=== PATIENT | male | born 1955 | race Caucasian/White ===

== ENCOUNTER → 2019-11-16 09:33 | Outpatient (BNVA) | payer MEDICARE, MEDICAID, SELFPAY | PROVIDERS: PCP Internal Medicine; Visit Provider Internal Medicine Pulmonary Disease | DX: J44.9 Chronic obstructive pulmonary disease, unspecified (principal); R91.8 Other nonspecific abnormal finding of lung field; Z87.891 Personal history of nicotine dependence | CPT/HCPCS: 99214 ==

== ENCOUNTER → 2019-11-30 12:45 | Outpatient (BNVA) | payer MEDICARE, MEDICAID, SELFPAY | PROVIDERS: PCP Internal Medicine; Visit Provider Internal Medicine Cardiovascular Disease | DX: R06.00 Dyspnea, unspecified (principal); R07.89 Other chest pain; I10 Essential (primary) hypertension; Z87.891 Personal history of nicotine dependence; Z79.82 Long term (current) use of aspirin; Z79.899 Other long term (current) drug therapy | CPT/HCPCS: 99214 ==

== ENCOUNTER → 2019-12-28 09:11 | Outpatient (BNVA) | payer MEDICARE, MEDICAID, SELFPAY | PROVIDERS: PCP Internal Medicine; Visit Provider Internal Medicine Pulmonary Disease | DX: J44.9 Chronic obstructive pulmonary disease, unspecified (principal); R91.8 Other nonspecific abnormal finding of lung field; Z79.899 Other long term (current) drug therapy | CPT/HCPCS: 99212 ==

== ENCOUNTER 2020-01-03 08:11 | Day surgery (SDC) | payer MEDICARE, MEDICAID, SELFPAY ==
[2019-12-28 11:46] VITALS: BMI 31.6
--- NOTE | 2020-01-02 10:09 | P.CONAN_ITS ---
Documented by User: Gwenher Shellney 01/02/20 10:34 HPI - Anesthesia Eval Consult details Narrative: 64yo M for Upper Endoscopy and Colonoscopy Seen 12/28/19 by Pulm for CESPEDES (ongoing) and Cough PMFSH Past Medical History Medical History Back pain Cook esophagus CESPEDES (dyspnea on exertion) Elevated cholesterol GERD (gastroesophageal reflux disease) Hypertension Family History Family History Father CVD (cardiovascular disease) Diabetes Myocardial infarct Mother Breast cancer Surgical History Surgical History History of esophagogastroduodenoscopy (EGD) Hx of cardiac catheterization Hx of colonoscopy Social History Social History Are you a primary care services manager to a significant other at home: No Do you presently have visiting nurse or other home services: No Smoking Status: Former smoker Tobacco Type: Cigarette Years Smoked: 30-35 years Smoking Quit Date: 5 yrs ago Use of substances other than those prescribed or required for medical reasons: Yes Substance Use Type Other:: CBD oil- 1/2 tsp daily Substance Use Frequency: Daily Have you been hit, kicked, punched, or otherwise hurt by someone within the past year? If so, by whom?: No Advance Directives: No Advance Directives Information Provided: No Advance Directives on File: No Recently lost weight without trying: No Meds Allergies Allergy/AdvReac Type Severity Reaction Status Date / Time baclofen AdvReac Unknown chest pain Verified 12/28/19 11:42 meperidine [From Demerol] AdvReac Nausea Verified 12/28/19 11:42 simvastatin [From Zocor] AdvReac Muscle Pain Verified 12/28/19 11:42 Home Medications Medication Instructions Recorded Confirmed Type albuterol sulfate 90 mcg/actuation 2 puff INHALATION Q4-6H PRN 11/16/19 12/28/19 History aerosol inhaler aspirin 81 mg tablet,delayed 81 mg PO DAILY 11/16/19 12/28/19 History release carvedilol 3.125 mg tablet 3.125 mg PO BID 11/16/19 12/28/19 History enalapril maleate 20 mg tablet 20 mg PO DAILY 11/16/19 12/28/19 History levothyroxine 75 mcg tablet 75 mcg PO DAILY 11/16/19 12/28/19 History Exam Exam Date and Time: January 02, 2020 1009 Height,Weight and Vital Signs: Height 5 ft 7 in Weight 91.626 kg Pertinent Lab Results Pertinent Lab Results: Laboratory Tests 07/15/19 07/26/19 14:48 09:37 WBC 6.4 Hgb 14.3 Hct 43.6 Plt Count 212 Sodium 142 Potassium 5.1 Chloride 105 BUN 15 Creatinine 1.69 H Narrative Narrative: EKG 05/2019: SR with marked SA @ 82 ECHO 2020: Gr 1 DD, valves WNL Stress/MIBI 05/2019: No definitive evidence of ischemia or infarct Assessment and Plan Assessment Anesthesia Assessment: Chart Reviewed Documented by User: Magdi Rodriguez MD 01/03/20 09:25 PMFSH Past Medical History Medical History Back pain Cook esophagus CESPEDES (dyspnea on exertion) Elevated cholesterol GERD (gastroesophageal reflux disease) Hypertension Family History Family History Father CVD (cardiovascular disease) Diabetes Myocardial infarct Mother Breast cancer Surgical History Surgical History History of esophagogastroduodenoscopy (EGD) Hx of cardiac catheterization Hx of colonoscopy Social History Social History Are you a primary care services manager to a significant other at home: No Do you presently have visiting nurse or other home services: No Smoking Status: Former smoker Tobacco Type: Cigarette Years Smoked: 30-35 years Smoking Quit Date: 5 yrs ago Use of substances other than those prescribed or required for medical reasons: Yes Substance Use Type Other:: CBD oil- 1/2 tsp daily Substance Use Frequency: Daily Have you been hit, kicked, punched, or otherwise hurt by someone within the past year? If so, by whom?: No Advance Directives: No Advance Directives Information Provided: No Advance Directives on File: No Recently lost weight without trying: No Meds Allergies Allergy/AdvReac Type Severity Reaction Status Date / Time baclofen AdvReac Unknown chest pain Verified 12/28/19 11:42 meperidine [From Demerol] AdvReac Nausea Verified 12/28/19 11:42 simvastatin [From Zocor] AdvReac Muscle Pain Verified 12/28/19 11:42 Home Medications Medication Instructions Recorded Confirmed Type albuterol sulfate 90 mcg/actuation 2 puff INHALATION Q4-6H PRN 11/16/19 12/28/19 History aerosol inhaler aspirin 81 mg tablet,delayed 81 mg PO DAILY 11/16/19 12/28/19 History release carvedilol 3.125 mg tablet 3.125 mg PO BID 11/16/19 12/28/19 History enalapril maleate 20 mg tablet 20 mg PO DAILY 11/16/19 12/28/19 History levothyroxine 75 mcg tablet 75 mcg PO DAILY 11/16/19 12/28/19 History Exam Airway Mallampati Class: II TM Dist: >3cm Neck ROM: Full Denture: Upper and Lower Loose/Missing/Broken Teeth: No Heart: rrr Lungs: nl Other: ao Assessment and Plan Assessment Anesthesia Assessment: Anesthesia Plan Discussed and Chart Reviewed Final Anesthetic Review NPO: Yes ASA Class: III Final Preanesthetic Review: No Changes in Pt Med Stat, Meds/Allgs Chart Reviewed, Consent Obtained/Reviewed and Anes Risks/Benef Reviewed Patient Risk: Intermediate Procedure Risk: Low Anesthetic Plan Anesthetic Plan: MAC: Disposition: Standard PACU
[2020-01-03 08:22] VITALS: BP 173/90; PULSE 61; RESP 16; TEMP 36.2; O2SAT 98
[2020-01-03] MEDS: Lactated Ringers 1,000 ML 100 ML IVCONT (08:34)
--- NOTE | 2020-01-03 09:25 | MHC.SHP ---
Pre-Procedural Eval Section A The patient is an INPATIENT: No Changes since office visit: No Cold of Flu in the past 2 weeks, No New Medical Problems, No Changes in Medication and No Patient answered all questions The History & Physical has been completed within 30 days and I have reviewed it.: Yes Section B Chief Complaint: barretts,screening Allergies: Allergies Allergy/AdvReac Type Severity Reaction Status Date / Time baclofen AdvReac Unknown chest pain Verified 12/28/19 11:42 meperidine [From Demerol] AdvReac Nausea Verified 12/28/19 11:42 simvastatin [From Zocor] AdvReac Muscle Pain Verified 12/28/19 11:42 Plan Patient has been examined and remains a candidate for the planned procedure
[2020-01-03 10:06] VITALS: BP 103/64; PULSE 78; RESP 12; TEMP 36.6; O2SAT 96
--- NOTE | 2020-01-03 10:09 | PM.OP ---
Brief Operative Note Date of Service: 01/03/20 Pre-op diagnosis: barretts, screening Post-op diagnosis: same (colon polyp) Procedure: egd, colonoscopy Surgeon: Jae Puentes Anesthesia: MAC Estimated blood loss (mL): 5 Pathology: other (esophagus 37, 38 cm, polyp 65cm) Condition: stable Disposition: PACU
[2020-01-03 10:21] VITALS: BP 133/69; PULSE 79; RESP 14; TEMP 36.6; O2SAT 96
--- NOTE | 2020-01-03 10:32 | OP_ITS ---
SURGEON: Jae Puentes MD INDICATIONS: 1. Cook's esophagus. 2. Colon cancer screening and prior history of adenomatous colon polyps. PREOPERATIVE DIAGNOSIS: POSTOPERATIVE DIAGNOSIS: PROCEDURE PERFORMED: 1. Upper endoscopy with biopsy. 2. Colonoscopy to the terminal ileum with biopsy. ESTIMATED BLOOD LOSS: COMPLICATIONS: ANESTHESIA: ASSISTANTS: SPECIMENS: MEDICATIONS: Monitored anesthesia care. DESCRIPTION OF PROCEDURE: History and physical performed. The risks and benefits of the procedure were explained to the patient. Informed consent was obtained. The patient was placed in the left lateral decubitus position. The Olympus video gastroscope was introduced into the esophagus, stomach, and duodenum. Examination was performed. The scope was removed. He was repositioned for colonoscopy. Digital rectal exam was performed and was found to be normal. The Olympus pediatric video colonoscope was introduced into the rectum and advanced to the cecum without difficulty. The cecum was identified by transillumination, palpation, and identification of the ileocecal valve. Examination was performed. The scope was removed. He tolerated both procedures well and was taken to recovery area in stable condition. FINDINGS: UPPER ENDOSCOPY: 1. Esophagus: The esophagus showed a 1 cm area of Cook's esophagus with no raised lesions or ulcerated areas. There was no esophagitis. Biopsies were obtained in all 4 quadrants at 37 and 38 cm. 2. Stomach: The stomach was normal. 3. Duodenum: The bulb and second portion were normal. COLONOSCOPY: The terminal ileum was normal. The visualized colonic mucosa was within normal limits. There was a small polyp, which was identified, removed with biopsy forceps at 65 cm. No other polyps were identified. Retroflexed examination showed internal hemorrhoids. The quality of the prep was good. IMPRESSION: 1. Cook's esophagus. 2. Colon polyp. RECOMMENDATIONS: 1. Follow up the biopsy results. 2. Consider repeat colonoscopy in 5 years. MD MINI Torres/[place] / [id number]
== END 2020-01-03 10:56 | disposition home or self-care (01) ==
PROVIDERS: PCP Internal Medicine; Visit Provider Internal Medicine Gastroenterology
PROC: (CPT 43239; principal; 2020-01-03 09:40)
DX: Z12.11 Encounter for screening for malignant neoplasm of colon (principal); D12.6 Benign neoplasm of colon, unspecified; K22.70 Barrett's esophagus without dysplasia; I10 Essential (primary) hypertension; Z79.82 Long term (current) use of aspirin; Z88.8 Allergy status to other drugs, medicaments and biological substances; Z86.010 Personal history of colon polyps
CPT/HCPCS: 43239; 45380; 88305

== ENCOUNTER → 2020-02-22 12:39 | Outpatient (BNVA) | payer MEDICARE, MEDICAID, SELFPAY | PROVIDERS: PCP Internal Medicine; Visit Provider Internal Medicine Cardiovascular Disease | DX: R06.00 Dyspnea, unspecified (principal); I10 Essential (primary) hypertension | CPT/HCPCS: 99212 ==

== ENCOUNTER 2020-02-27 06:35 | Outpatient (REF) | payer MEDICARE, MEDICAID, SELFPAY ==
[2020-02-27 11:35] LABS: Cholesterol 231 mg/dL; HDL Cholesterol 32 mg/dL; LDL Cholesterol Calculated 135 mg/dl; Triglycerides 322 mg/dL
[2020-02-27 11:58] LABS: Thyroid Stimulating Hormone 3.01 uIU/mL (0.32-4.0)
== END 2020-02-27 06:36 | disposition home or self-care (01) ==
LOC: HO.HMGCLDS 06:35
PROVIDERS: PCP Internal Medicine; Visit Provider Internal Medicine
DX: E03.9 Hypothyroidism, unspecified (principal)
CPT/HCPCS: 36415; 80061; 84443

== ENCOUNTER → 2020-04-26 09:42 | Outpatient (BNVA) | payer MEDICARE, MEDICAID, SELFPAY | PROVIDERS: PCP Internal Medicine; Visit Provider Internal Medicine Pulmonary Disease | DX: J44.9 Chronic obstructive pulmonary disease, unspecified (principal); Z91.09 Other allergy status, other than to drugs and biological substances; Z87.891 Personal history of nicotine dependence | CPT/HCPCS: 99212 ==

== ENCOUNTER → 2020-05-18 13:59 | Outpatient (BNVA) | payer MEDICARE, MEDICAID, SELFPAY | PROVIDERS: PCP Internal Medicine; Visit Provider Internal Medicine Pulmonary Disease | DX: Z13.89 Encounter for screening for other disorder (principal) | CPT/HCPCS: Q3014 ==

== ENCOUNTER 2020-08-10 06:43 | Outpatient (REF) | payer MEDICARE, MEDICAID, SELFPAY ==
[2020-08-10 12:11] LABS: Prostate Specific Antigen 0.71 ng/mL (<0.05-4.0)
[2020-08-10 12:23] LABS: Alanine Aminotransferase 36 U/L (0-40); Albumin Level 4.6 g/dL (3.5-5.0); Alkaline Phosphatase 46 U/L (39-117); Anion Gap 15 (12-20); Aspartate Amino Transferase 24 U/L (5-37); Bilirubin Total 0.5 mg/dL (0.0-1.0); Blood Urea Nitrogen 20 mg/dL (9-16); Calcium 9.4 mg/dL (8.4-10.2); Carbon Dioxide 25 mmol/L (22-29); Chloride 103 mmol/L (96-108); Estimated Glomerular Filt Rate 43; Glucose Fasting 106 mg/dL (60-99); Potassium 4.7 mmol/L (3.3-5.1); Sodium 138 mmol/L (135-145); Thyroid Stimulating Hormone 1.39 uIU/mL (0.32-4.0); Total Protein 7.4 g/dL (6.5-8.0)
== END 2020-08-10 06:44 | disposition home or self-care (01) ==
LOC: HO.HMGCLDS 06:43
PROVIDERS: Nurse Practitioner Family; PCP Internal Medicine; Visit Provider Internal Medicine
DX: Z12.5 Encounter for screening for malignant neoplasm of prostate (principal); Z13.1 Encounter for screening for diabetes mellitus; E03.9 Hypothyroidism, unspecified
CPT/HCPCS: 36415; 80053; 84153; 84443

== ENCOUNTER 2020-08-14 13:13 | Outpatient (REF) | payer MEDICARE, MEDICAID, SELFPAY ==
--- NOTE | ~2020-08-14 | CT_ITS ---
EXAMINATION: CT CHEST WITHOUT CONTRAST CLINICAL INFORMATION: Abnormal finding of lung field. COMPARISON: CT chest scan 08/10/2019 TECHNIQUE: Multidetector volumetric CT imaging of the chest was done. Axial MIP volume rendering provided. Sagittal and coronal reformatted images were obtained. This CT examination was performed using dose optimization techniques as appropriate, variously including the following: *Automated exposure control *Adjustment of mA and/or kV according to patient size (this includes techniques or standardized protocols for targeted exams where dose is matched to indication/reason for exam; i.e. extremities or head) *Use of iterative reconstruction technique DLP: 366 mGy-cm FINDINGS: LUNGS: Minimal apical pleural thickening/scarring, unchanged. 2 mm calcified granuloma right lower lobe, unchanged. 1 mm calcification in the left lower lobe compatible with granuloma, unchanged. 2 mm nodular opacity in the posterior left lower lobe on image 339/[id number] series 8, unchanged. Lungs otherwise clear. Airways clear without endobronchial nodule reported previously. MEDIASTINUM: Coronary artery and aortic calcifications, unchanged. No pericardial effusion. No adenopathy. PLEURA: There is no pleural effusion. No pleural mass or thickening. AXILLA: No lymphadenopathy. UPPER ABDOMEN: Unremarkable. OSSEOUS STRUCTURES: Mild multilevel spondylosis of the dorsal spine, unchanged. CT/CT chest wo con IMPRESSION: No suspicious abnormality. Previously reported endobronchial filling defect no longer visualized. Stable calcified granuloma, unchanged. Stable 2 mm nodule in the left lower lobe, unchanged dating back to February 2017. This is compatible with a benign nodule. No further imaging followup required.
== END 2020-08-14 13:14 | disposition home or self-care (01) ==
LOC: HO.CT 13:13
PROVIDERS: Visit Provider Internal Medicine Pulmonary Disease
DX: R91.8 Other nonspecific abnormal finding of lung field (principal)
CPT/HCPCS: 71250

== ENCOUNTER → 2020-09-05 14:16 | Outpatient (BNVA) | payer MEDICARE, MEDICAID, SELFPAY | PROVIDERS: PCP Internal Medicine; Referring Provider Internal Medicine; Visit Provider Internal Medicine Cardiovascular Disease | DX: R06.00 Dyspnea, unspecified (principal); I10 Essential (primary) hypertension | CPT/HCPCS: 93005; 99212 ==

== ENCOUNTER → 2020-12-26 12:39 | Outpatient (BNVA) | payer MEDICARE, MEDICAID, SELFPAY | PROVIDERS: PCP Internal Medicine; Referring Provider Internal Medicine; Visit Provider Internal Medicine Cardiovascular Disease | DX: M25.50 Pain in unspecified joint (principal); I10 Essential (primary) hypertension; R06.00 Dyspnea, unspecified | CPT/HCPCS: 99212 ==

== ENCOUNTER 2020-12-27 06:17 | Outpatient (REF) | payer MEDICARE, MEDICAID, SELFPAY ==
[2020-12-27 12:30] LABS: Erythrocyte Sedimentation Rate 5 MM/HR (0-15)
[2020-12-27 13:03] LABS: C Reactive Protein 0.15 mg/dL (< or = 0.50)
[2020-12-27 13:28] LABS: Vitamin D 25-OH Total 14.9 ng/mL (>30)
== END 2020-12-27 06:18 | disposition home or self-care (01) ==
LOC: HO.HMGCLDS 06:17
PROVIDERS: PCP Internal Medicine; Visit Provider Internal Medicine Cardiovascular Disease
DX: M25.50 Pain in unspecified joint (principal)
CPT/HCPCS: 36415; 82306; 85652; 86140

== ENCOUNTER 2021-02-03 23:36 | Emergency (ER) | payer MEDICARE, MEDICAID, SELFPAY ==
--- NOTE | ~2021-02-03 | XR_ITS ---
EXAMINATION: XR CHEST CLINICAL INFORMATION: Cough COMPARISON: CT chest 08/24/2020 TECHNIQUE: 2 views of the chest were obtained. FINDINGS: The heart and pulmonary vessels appear normal. No pleural effusions are seen. There is patchy density seen in the right upper lobe abutting the minor fissure. 2 areas of more ill-defined density are seen in the left mid and left mid to lower lung zones. All of these findings are new when compared to 08/14/2020 study. XR/XR chest 2V IMPRESSION: Multifocal infiltrates as described above.
[2021-02-03 23:45] VITALS: BP 171/89; PULSE 76; RESP 20; TEMP 37.4; O2SAT 96; BMI 25.8
--- NOTE | 2021-02-04 00:21 | ED.SOB ---
HPI - SOB/Dyspnea General Chief Complaint: Dyspnea Stated Complaint: unknown Time Seen by Provider: 02/03/21 23:48 Source: patient Mode of arrival: EMS History of Present Illness HPI Narrative: 65-year-old male with history of COPD is brought in via EMS from home for 8 days of fevers and congestion and known to have COVID-19 exposure from his brother. Patient states that he has had nasal congestion, sinus discomfort as well as cough and then states this evening that he laid down and became more short of breath and tried to take his rescue inhaler with limited success. Related Data Home Medications Medication Instructions Recorded Confirmed albuterol sulfate 90 mcg/actuation 2 puff INHALATION Q4-6H PRN 11/16/19 12/26/20 aerosol inhaler esomeprazole magnesium 20 mg 20 mg PO DAILY 12/26/20 12/26/20 capsule,delayed release Previous Rx's Medication Instructions Recorded levothyroxine 75 mcg tablet 75 mcg PO DAILY #90 tab 08/01/20 hydrochlorothiazide 12.5 mg tablet 12.5 mg PO DAILY #90 tab 08/15/20 enalapril maleate 20 mg tablet 20 mg PO DAILY #90 tab 10/19/20 aspirin 81 mg tablet,delayed 81 mg PO DAILY 90 Days #90 tab 11/13/20 release lorazepam 1 mg tablet 1 mg PO Q6H PRN #120 tab 11/15/20 Allergies Allergy/AdvReac Type Severity Reaction Status Date / Time baclofen AdvReac Unknown chest pain Verified 12/26/20 13:00 meperidine [From Demerol] AdvReac Nausea Verified 12/26/20 13:00 simvastatin [From Zocor] AdvReac Muscle Pain Verified 12/26/20 13:00 Review of Systems Review of Systems: Pertinent positives and negatives as stated in HPI and 10 point review of systems is otherwise negative. [facility] Past Medical History Source: nursing notes reviewed Medical History Back pain Cook esophagus CESPEDES (dyspnea on exertion) Elevated cholesterol GERD (gastroesophageal reflux disease) Hypertension Hypothyroidism Obesity Screening for diabetes mellitus Screening for prostate cancer Surgical History History of esophagogastroduodenoscopy (EGD) Hx of cardiac catheterization Hx of colonoscopy Family History Family History Father CVD (cardiovascular disease) Diabetes Myocardial infarct Mother Breast cancer Sister Colon cancer Son Substance use disorder Social History Social History Housing: House Are you a primary care information associate to a significant other at home: No Do you presently have visiting nurse or other home services: No Alcohol intake: former Patient Tobacco Use Status: Former Tobacco user Tobacco use type: Cigarette Years Smoked: 30-35 years e-Cigarette/Vaping Use: Never Used Second Hand Smoke Exposure: No Advance Directives: No Advance Directives Information Provided: No service: No Current occupational status: disabled Physical Exam Vital Signs: Vital Signs: Last Vital Signs Temp 99.3 F 02/03/21 23:45 Pulse 76 02/03/21 23:45 Resp 20 02/03/21 23:45 BP 171/89 H 02/03/21 23:45 Pulse Ox 96 02/03/21 23:45 BMI result Body Mass Index 25.8 VITAL SIGNS: Reviewed. GENERAL: Well developed, well nourished, in no acute distress. HEAD: Normocephalic/atraumatic EYES: PERRLA, EOMI OROPHARYNX: no oral lesions noted, posterior pharynx clear LUNGS: Normal breath sounds, no wheeze/rhonchi/rales, no tachypnea or increased work of breathing. SpO2<96> CARDIOVASCULAR: Regular rate and rhythm without noted murmurs, no JVD or lower extremity edema. ABDOMEN: Soft, non-tender, non-distended with bowel sounds. NEUROLOGIC: Alert and oriented x 4. Strength and sensation to light touch were grossly intact x 4. Course Course Course Narrative: 65-year-old male with history and clinical presentation consistent with COVID-19 infection and patient is currently oxygenating well on room air, is afebrile, does not demonstrate any tachypnea or increased work of breathing. Review of all investigations with both chest x-ray as well as cup 19 testing supporting patient's presentation that is consistent with COVID-19 infection. He was informed of all results and on walk test with pulse oximetry was noted to oxygen a well and not drop below 94%. MDM - SOB/Dyspnea Lab Data Labs: Lab Results 02/04/21 Range/Units 00:45 COVID-19 (CRISTIAN) Positive A (Negative) COVID-19 Clin Com See Note Discharge Plan Discharge Clinical Impression: Viral syndrome, Lab test positive for detection of COVID-19 virus Patient Disposition: Home, Self-Care Instructions: Viral Syndrome (ED), COVID-19 (Coronavirus Disease 2019) (ED) Additional Instructions: 1. Resume all home medications as prescribed. Recommend increasing frequency of your inhaler to every 4 hours for improved symptom relief. 2. Recommend bedside cool mist humidifier as well as [id number] cough medicine for cough control. 3. Recommend [id number] Tylenol/ibuprofen as needed for body aches, temperatures greater than 100.4. 4. Recommend following up with your primary care provider in the morning via telemedicine appointment for re-evaluation further outpatient management. Return to the ER should you experience significant worsening of your symptoms. Prescriptions: No Action levothyroxine 75 mcg tablet 75 mcg PO DAILY Qty: 90 RF: 8 hydrochlorothiazide 12.5 mg tablet 12.5 mg PO DAILY Qty: 90 RF: 3 enalapril maleate 20 mg tablet 20 mg PO DAILY Qty: 90 RF: 8 aspirin 81 mg tablet,delayed release (DR/EC) 81 mg PO DAILY 90 Days Qty: 90 RF: 3 albuterol sulfate 90 mcg/actuation HFA aerosol inhaler 2 puff inhalation Q4-6H PRN (Reason: Wheezing) RF: 0 lorazepam 1 mg tablet 1 mg PO Q6H PRN (Reason: anxiety) Qty: 120 RF: 5 esomeprazole magnesium 20 mg capsule,delayed release(DR/EC) 20 mg PO DAILY RF: 0 Referrals: Kyree Valentino MD [Primary Care Provider] - 2 days
[2021-02-04 01:01] LABS: COVID-19 Test Positive (Negative)
== END 2021-02-04 02:10 | disposition home or self-care (01) ==
PROVIDERS: Emergency Provider Student in an Organized Health Care Education/Training Program; PCP Internal Medicine
DX: U07.1 COVID-19 (principal); J44.9 Chronic obstructive pulmonary disease, unspecified; I10 Essential (primary) hypertension
CPT/HCPCS: 36415; 71046; 87635; 99283

== ENCOUNTER 2021-03-13 06:54 | Outpatient (REF) | payer MEDICARE, MEDICAID, SELFPAY ==
[2021-03-13 11:30] LABS: MANUAL DIFF FLAG NO
[2021-03-13 11:38] LABS: Basophils Absolute Auto 0.1 X10*3/uL (0.0-0.2); Basophils Percent Auto 0.9 % (0-2); Eosinophils Absolute Auto 0.2 X10*3/uL (0.0-0.4); Hematocrit 42.1 % (42.0-52.0); Hemoglobin 13.7 g/dl (14.0-18.0); Imm Gran Abs Auto 0.04 X10*3/uL (0.00-0.03); Imm Gran Pct Auto 0.5 % (0.0-0.4); Lymphocytes Absolute Auto 2.1 X10*3/uL (1.2-4.9); Mean Corpuscular HGB Conc 32.5 g/dl (31.0-36.0); Mean Corpuscular Hemoglobin 29.8 pg (27.0-33.0); Mean Corpuscular Volume 91.7 fL (80.0-98.0); Mean Platelet Volume 10.2 fL (9.4-12.4); Monocytes Absolute Auto 0.4 X10*3/uL (0.1-1.2); Neutrophils Absolute Auto 4.5 x10*3/uL (2.0-8.3); Neutrophils Percent Auto 60.6 % (45-73); Platelet Count 299 X10*3/uL (160-400); Red Blood Count 4.59 X10*6/uL (4.60-5.80); Red Cell Distribution Width 14.1 % (11.0-16.0); White Blood Count 7.4 X10*3/uL (4.8-10.8)
[2021-03-13 12:16] LABS: Alanine Aminotransferase 45 U/L (0-40); Albumin Level 4.3 g/dL (3.5-5.0); Alkaline Phosphatase 51 U/L (39-117); Anion Gap 15 (12-20); Aspartate Amino Transferase 26 U/L (5-37); Bilirubin Total 0.5 mg/dL (0.0-1.0); Blood Urea Nitrogen 12 mg/dL (9-16); Calcium 9.3 mg/dL (8.4-10.2); Carbon Dioxide 26 mmol/L (22-29); Chloride 105 mmol/L (96-108); Cholesterol 241 mg/dL; Estimated Glomerular Filt Rate 46; Glucose Fasting 115 mg/dL (60-99); HDL Cholesterol 33 mg/dL; LDL Cholesterol Calculated 168 mg/dl; Potassium 4.5 mmol/L (3.3-5.1); Sodium 141 mmol/L (135-145); Total Protein 7.2 g/dL (6.5-8.0); Triglycerides 203 mg/dL
[2021-03-13 12:21] LABS: Thyroid Stimulating Hormone 0.96 uIU/mL (0.32-4.0)
== END 2021-03-13 06:55 | disposition home or self-care (01) ==
LOC: HO.HMGCLDS 06:54
PROVIDERS: Visit Provider Internal Medicine
DX: Z00.00 Encounter for general adult medical examination without abnormal findings (principal); Z13.0 Encounter for screening for diseases of the blood and blood-forming organs and certain disorders involving the immune mechanism
CPT/HCPCS: 36415; 80053; 80061; 84443; 85025

== ENCOUNTER → 2021-06-20 08:53 | Outpatient (BNVA) | payer MEDICARE, MEDICAID, SELFPAY | PROVIDERS: PCP Internal Medicine; Referring Provider Internal Medicine; Visit Provider Internal Medicine Cardiovascular Disease | DX: R09.89 Other specified symptoms and signs involving the circulatory and respiratory systems (principal); I10 Essential (primary) hypertension; R06.00 Dyspnea, unspecified; G47.30 Sleep apnea, unspecified | CPT/HCPCS: 93005; 99212 ==

== ENCOUNTER 2021-08-06 12:44 | Outpatient (REF) | payer MEDICARE, MEDICAID, SELFPAY ==
--- NOTE | ~2021-08-06 | US_ITS ---
EXAMINATION: US EXTRACRANIAL CAROTID DUPLEX, BILATERAL CLINICAL INFORMATION: Carotid stenosis COMPARISON: None TECHNIQUE: Real-time ultrasound and Doppler techniques (integrating B-mode 2-D vascular images, Doppler spectral analysis and color-flow Doppler imaging) were utilized to interrogate the extracranial carotid arteries, the vertebral arteries and proximal subclavian arteries bilaterally. The degree of stenosis is determined by criteria similar to NASCET. FINDINGS: Right Side: 1. There is mild to moderate atherosclerotic plaque seen in the bifurcation/proximal ICA region. 2. The common carotid artery PSV proximally is 114 cm/s and distally 137 cm/s. 3. The proximal internal carotid artery velocities are 145 cm/s systolic and 34 cm/s diastolic. 4. The proximal external carotid artery PSV is 148 cm/s. 5. The vertebral artery shows antegrade flow. 6. The subclavian artery waveforms are normal. Left Side: 1. There is mild atherosclerotic plaque seen in the bifurcation/proximal ICA region. 2. The common carotid artery PSV proximally is 129 cm/s and distally 131 cm/s. 3. The proximal internal carotid artery velocities are 106 cm/s systolic and 38 cm/s diastolic. 4. The proximal external carotid artery PSV is 123 cm/s. 5. The vertebral artery shows antegrade flow. 6. The subclavian artery waveforms are normal. US/US carotid duplex BI IMPRESSION: 1. RIGHT: Moderate, hemodynamically significant stenosis of the proximal right internal carotid artery corresponding to a 50-79% stenosis by velocity criteria. 2. LEFT: Minimal, non-hemodynamically significant stenosis of the proximal left internal carotid artery corresponding to a 0-49% stenosis by velocity criteria.
== END 2021-08-06 12:45 | disposition home or self-care (01) ==
LOC: HO.HMGCX 12:44
PROVIDERS: Visit Provider Internal Medicine Cardiovascular Disease
DX: R09.89 Other specified symptoms and signs involving the circulatory and respiratory systems (principal)
CPT/HCPCS: 93880

== ENCOUNTER 2021-08-27 06:36 | Outpatient (REF) | payer MEDICARE, MEDICAID, SELFPAY ==
[2021-08-27 11:48] LABS: Cholesterol 242 mg/dL; HDL Cholesterol 28 mg/dL; LDL Cholesterol Calculated 159 mg/dl; Triglycerides 276 mg/dL
[2021-08-27 11:55] LABS: Thyroid Stimulating Hormone 2.06 uIU/mL (0.32-4.0)
== END 2021-08-27 06:37 | disposition home or self-care (01) ==
LOC: HO.HMGCLDS 06:36
PROVIDERS: Visit Provider Internal Medicine
DX: Z00.00 Encounter for general adult medical examination without abnormal findings (principal); E03.9 Hypothyroidism, unspecified
CPT/HCPCS: 36415; 80061; 84443

== ENCOUNTER 2021-10-24 06:07 | Outpatient (REF) | payer MEDICARE, MEDICAID, SELFPAY ==
[2021-10-24 11:50] LABS: Anion Gap 16 (12-20); Blood Urea Nitrogen 15 mg/dL (9-16); Calcium 9.2 mg/dL (8.4-10.2); Carbon Dioxide 25 mmol/L (22-29); Chloride 103 mmol/L (96-108); Estimated Glomerular Filt Rate 47; Glucose Fasting 101 mg/dL (60-99); Potassium 4.3 mmol/L (3.3-5.1); Sodium 140 mmol/L (135-145)
[2021-10-24 11:52] LABS: Prostate Specific Antigen 2.07 ng/mL (<0.05-4.0)
== END 2021-10-24 06:08 | disposition home or self-care (01) ==
LOC: HO.HMGCLDS 06:07
PROVIDERS: PCP Internal Medicine; Visit Provider Nurse Practitioner Family
DX: Z12.5 Encounter for screening for malignant neoplasm of prostate (principal); Z13.1 Encounter for screening for diabetes mellitus
CPT/HCPCS: 36415; 80048; 84153

== ENCOUNTER → 2021-11-20 09:09 | Outpatient (BNVA) | payer MEDICARE, MEDICAID, SELFPAY | PROVIDERS: PCP Internal Medicine; Referring Provider Internal Medicine; Visit Provider Internal Medicine Cardiovascular Disease | DX: I65.29 Occlusion and stenosis of unspecified carotid artery (principal); I10 Essential (primary) hypertension | CPT/HCPCS: 99212 ==

== ENCOUNTER 2022-01-20 07:34 | Outpatient (REF) | payer MEDICARE, MEDICAID, SELFPAY ==
--- NOTE | ~2022-01-20 | US_ITS ---
EXAMINATION: US EXTRACRANIAL CAROTID DUPLEX, BILATERAL CLINICAL INFORMATION: Bruit COMPARISON: Carotid duplex on 07/29/2021 TECHNIQUE: Real-time ultrasound and Doppler techniques (integrating B-mode 2-D vascular images, Doppler spectral analysis and color-flow Doppler imaging) were utilized to interrogate the extracranial carotid arteries, the vertebral arteries and proximal subclavian arteries bilaterally. The degree of stenosis is determined by criteria similar to NASCET. FINDINGS: Right Side: 1. There is mild atherosclerotic plaque seen in the bifurcation/proximal ICA region. 2. The common carotid artery PSV proximally is 100 cm/s and distally 91 cm/s. 3. The proximal internal carotid artery velocities are 84 cm/s systolic and 31 cm/s diastolic. 4. The proximal external carotid artery PSV is 79 cm/s. 5. The vertebral artery shows antegrade flow. 6. The subclavian artery waveforms are normal. Left Side: 1. There is mild atherosclerotic plaque seen in the bifurcation/proximal ICA region. 2. The common carotid artery PSV proximally is 108 cm/s and distally 94 cm/s. 3. The proximal internal carotid artery velocities are 86 cm/s systolic and 42 cm/s diastolic. 4. The proximal external carotid artery PSV is 81 cm/s. 5. The vertebral artery shows antegrade flow. 6. The subclavian artery waveforms are normal. US/US carotid duplex BI IMPRESSION: 1. RIGHT: Minimal, non-hemodynamically significant stenosis of the proximal right internal carotid artery corresponding to a 0-49% stenosis by velocity criteria. 2. LEFT: Minimal, non-hemodynamically significant stenosis of the proximal left internal carotid artery corresponding to a 0-49% stenosis by velocity criteria. 3. There is improvement in velocities in the right internal carotid artery compared to the prior exam on 07/29/2021.
[2022-01-20 11:41] LABS: Triglycerides 114 mg/dL
[2022-01-20 11:42] LABS: Cholesterol 199 mg/dL; HDL Cholesterol 42 mg/dL; LDL Cholesterol Calculated 135 mg/dl
== END 2022-01-20 07:35 | disposition home or self-care (01) ==
LOC: HO.HMGCX 07:34
PROVIDERS: PCP Internal Medicine; Visit Provider Internal Medicine Cardiovascular Disease
DX: I65.29 Occlusion and stenosis of unspecified carotid artery (principal); R09.89 Other specified symptoms and signs involving the circulatory and respiratory systems
CPT/HCPCS: 36415; 80061; 93880

== ENCOUNTER 2022-02-05 12:31 | Outpatient (REF) | payer MEDICARE, MEDICAID, SELFPAY ==
--- NOTE | ~2022-02-05 | MR_ITS ---
EXAMINATION: MR LUMBAR SPINE WITHOUT CONTRAST CLINICAL INFORMATION: Lower back pain, facet related to metastatic/lower levels. COMPARISON: Plain films of the lumbar spine to 03/31/2017. Remote MRI scan of the lumbar spine 05/22/2009. TECHNIQUE: MRI of the lumbar spine was obtained using routine sequences without contrast. FINDINGS: VERTEBRAL BODIES AND PARASPINAL STRUCTURES: There is a mild levoscoliosis. There is now a mild grade 1 anterolisthesis of L4 on L5. There is a mild retrolisthesis of L3 on L4. There is multilevel narrowing of intervertebral disc height with loss of signal throughout the lumbar spine, sparing L5-S1. There are multilevel degenerative endplate contour changes. Fatty endplate signal changes are seen at L3-L4 and L4-L5. There is an area of increased T1 and T2 signal in the right superior facet of L4, consistent with a hemangioma. Similar signal is seen in the right pedicle of L5. There is invagination of disc into the superior endplate of T11 which is partially visualized. This is likely chronic as marrow signal from vertebral bodies is similar to the adjacent structures. Elsewhere, vertebral body heights are maintained and no acute fractures are demonstrated. There are Schmorl's nodes at L2-L3. Overall, marrow signal is homogenous. The visualized retroperitoneal structures are unremarkable. The prostate gland is at the upper limits of normal in size, and measures 4.7 cm transversely. CONUS MEDULLARIS AND CAUDA EQUINA: Normal, terminating at the level of T12-L1. The lower thoracic spinal cord appears normal. The cauda equina nerve roots and filum terminale appear normal. SPINAL LEVELS: T12-L1: The facet joints appear normal bilaterally. Disc contour is normal. There is no central stenosis or foraminal narrowing. L1-L2: There is mild bilateral facet arthropathy. There is a shallow posterior disc protrusion without mass effect on thecal sac, and there is no foraminal nerve root impingement or central stenosis. L2-L3: There is mild bilateral facet arthropathy. There is a central and right-sided disc protrusion which distorts the ventral thecal sac and narrows the right subarticular recess. There is a small left-sided disc protrusion with an annular fissure without mass effect on the left L2 nerve root. There is mild central stenosis. L3-L4: There is moderate bilateral facet arthropathy. There is a posterior disc protrusion extending into the neural foramina bilaterally and there is mild impingement on the exiting L3 nerve roots, more severely on the right. There is mild narrowing of the right subarticular recess and there is mild central stenosis. L4-L5: There is markedly severe bilateral facet arthropathy with ligamenta flava hypertrophy and facet joint effusions. There are small synovial cysts off the posterior facet joints bilaterally. There is unroofing of the disc of the result of the anterolisthesis. There are bilateral foraminal disc protrusions; there is mild impingement on the exiting right L4 nerve root. There is narrowing of the bilateral subarticular recesses, and there is moderate to severe central stenosis. L5-S1: There is severe bilateral facet arthropathy with ligamenta flava hypertrophy. There is likely a small synovial cyst off the anteromedial left facet joint which measures 4 mm with mild mass effect on the thecal sac. There is a small posterior disc protrusion with distortion of the ventral thecal sac but there is no central stenosis. There is a right foraminal disc protrusion. MR/MR lumbar spine wo con IMPRESSION: 1. There is a grade 1 anterolisthesis of L4 on L5 secondary to severe facet arthropathy. There are bilateral foraminal disc protrusions with mild impingement on the exiting right L4 nerve root. There is moderate to severe central stenosis. 2. At L5-S1 there is severe facet arthropathy. There may be a small synovial cyst off the anteromedial left facet joint. There is no central stenosis. There is a right foraminal disc protrusion. 3. At L3-L4 there is moderate facet arthropathy. There is a posterior disc protrusion extending into the neural foramina with impingement on the exiting L3 nerve roots, more severely on the right. There is mild central stenosis. 4. At L2-L3 there is facet arthropathy and there is a central and right-sided disc protrusion with narrowing of the right subarticular recess. There is mild central stenosis. 5. The prostate gland is at the upper limits of normal in size.
--- NOTE | ~2022-02-05 | XR_ITS ---
EXAMINATION: XR CERVICAL SPINE CLINICAL INFORMATION: Pain. COMPARISON: 03/05/2015 TECHNIQUE: 6 views of the cervical spine. FINDINGS: No abnormal prevertebral soft tissue swelling is seen. No acute fracture is noted. There is disc space narrowing seen C3 through C7 with marginal spurring. There is spurring of the joints of Luschka causing some anterior neural foraminal encroachment C4 through C7 but which appears most significant at the C5-C6 level more significant on the left than the right. Appearance is unchanged from prior study. XR/XR cervical spine 3V IMPRESSION: Multilevel cervical spondylosis without evidence of acute fracture.
== END 2022-02-05 12:32 | disposition home or self-care (01) ==
LOC: HO.MRI 12:31
PROVIDERS: PCP Internal Medicine; Visit Provider Nurse Practitioner Women's Health
DX: M54.16 Radiculopathy, lumbar region (principal)
CPT/HCPCS: 72040; 72148

== ENCOUNTER → 2022-02-27 09:54 | Outpatient (BNVA) | payer MEDICARE, MEDICAID, SELFPAY | PROVIDERS: PCP Internal Medicine; Referring Provider Internal Medicine; Visit Provider Internal Medicine Cardiovascular Disease | DX: R06.00 Dyspnea, unspecified (principal); R07.89 Other chest pain; I10 Essential (primary) hypertension; E78.00 Pure hypercholesterolemia, unspecified; E78.5 Hyperlipidemia, unspecified; Z98.890 Other specified postprocedural states | CPT/HCPCS: 93005; 99212 ==

== ENCOUNTER → 2022-03-05 09:33 | Outpatient (BNVA) | payer MEDICARE, MEDICAID, SELFPAY | PROVIDERS: PCP Internal Medicine; Referring Provider Internal Medicine; Visit Provider Internal Medicine Cardiovascular Disease | DX: Z13.89 Encounter for screening for other disorder (principal) ==

== ENCOUNTER 2022-03-18 14:31 | Outpatient (REF) | payer MEDICARE, MEDICAID, SELFPAY ==
[2022-03-18 16:39] LABS: MANUAL DIFF FLAG NO
[2022-03-18 16:43] LABS: Basophils Absolute Auto 0.1 X10*3/uL (0.0-0.2); Basophils Percent Auto 0.8 % (0-2); Eosinophils Absolute Auto 0.1 X10*3/uL (0.0-0.4); Hematocrit 44.9 % (42.0-52.0); Hemoglobin 15.1 g/dl (14.0-18.0); Imm Gran Abs Auto 0.02 X10*3/uL (0.00-0.03); Imm Gran Pct Auto 0.2 % (0.0-0.4); Lymphocytes Absolute Auto 2.7 X10*3/uL (1.2-4.9); Lymphocytes Percent Auto 29.6 % (20-40); Mean Corpuscular HGB Conc 33.6 g/dl (31.0-36.0); Mean Corpuscular Hemoglobin 30.8 pg (27.0-33.0); Mean Corpuscular Volume 91.4 fL (80.0-98.0); Mean Platelet Volume 10.1 fL (9.4-12.4); Monocytes Absolute Auto 0.6 X10*3/uL (0.1-1.2); Monocytes Percent Auto 6.6 % (2-11); Neutrophils Absolute Auto 5.6 x10*3/uL (2.0-8.3); Neutrophils Percent Auto 61.8 % (45-73); Platelet Count 227 X10*3/uL (160-400); Red Blood Count 4.91 X10*6/uL (4.60-5.80); Red Cell Distribution Width 13.8 % (11.0-16.0)
[2022-03-18 16:59] LABS: Anion Gap 18 (12-20); Blood Urea Nitrogen 18 mg/dL (9-16); Calcium 9.5 mg/dL (8.4-10.2); Carbon Dioxide 27 mmol/L (22-29); Chloride 100 mmol/L (96-108); Estimated Glomerular Filt Rate 48; Glucose Random 93 mg/dL (60-115); Potassium 4.5 mmol/L (3.3-5.1); Sodium 140 mmol/L (135-145)
== END 2022-03-18 14:32 | disposition home or self-care (01) ==
LOC: HO.HMGCLDS 14:31
PROVIDERS: PCP Internal Medicine; Visit Provider Nurse Practitioner Family
DX: Z13.89 Encounter for screening for other disorder (principal)
CPT/HCPCS: 36415; 80048; 85025

== ENCOUNTER 2022-03-18 15:00 | Outpatient (REF) | payer MEDICARE, MEDICAID, SELFPAY ==
--- NOTE | ~2022-03-18 | US_ITS ---
EXAMINATION: US VENOUS ULTRASOUND WITH DOPPLER LOWER EXTREMITY, LEFT CLINICAL INFORMATION: Left lower extremity pain COMPARISON: None TECHNIQUE: Ultrasound of the deep veins is performed from the hip to the calf with compression sonography and color and pulse Doppler assessment. Spectral analysis with color-flow imaging is performed. FINDINGS: There is normal venous compression and respiratory variation and augmented flow. The visualized common femoral vein, superficial femoral vein, profunda femoral vein, popliteal vein, and the trifurcation region shows no evidence of deep venous thrombosis. There is no significant popliteal fossa cyst. If the patient's symptoms persist, followup ultrasound in 5 days 7 days might be of value to exclude proximal propagation from a non-visualized calf vein. US/US venous duplex LE LT IMPRESSION: No DVT demonstrated in the left lower extremity.
== END 2022-03-18 15:01 | disposition home or self-care (01) ==
LOC: HO.HMGCX 15:00
PROVIDERS: Visit Provider Nurse Practitioner Family
DX: M79.662 Pain in left lower leg (principal); R25.2 Cramp and spasm
CPT/HCPCS: 36415; 80048; 85025; 93971

== ENCOUNTER 2022-07-16 06:14 | Outpatient (REF) | payer MEDICARE, MEDICAID, SELFPAY ==
[2022-07-16 11:11] LABS: MANUAL DIFF FLAG NO
[2022-07-16 11:24] LABS: Basophils Absolute Auto 0.1 X10*3/uL (0.0-0.2); Basophils Percent Auto 0.7 % (0-2); Eosinophils Absolute Auto 0.2 X10*3/uL (0.0-0.4); Eosinophils Percent Auto 2.1 % (0-4); Hematocrit 45.8 % (42.0-52.0); Hemoglobin 15.1 g/dl (14.0-18.0); Imm Gran Abs Auto 0.04 X10*3/uL (0.00-0.03); Imm Gran Pct Auto 0.6 % (0.0-0.4); Lymphocytes Absolute Auto 2.3 X10*3/uL (1.2-4.9); Lymphocytes Percent Auto 31.5 % (20-40); Mean Corpuscular Hemoglobin 31.1 pg (27.0-33.0); Mean Corpuscular Volume 94.2 fL (80.0-98.0); Mean Platelet Volume 10.6 fL (9.4-12.4); Monocytes Absolute Auto 0.6 X10*3/uL (0.1-1.2); Monocytes Percent Auto 8.5 % (2-11); Neutrophils Absolute Auto 4.1 x10*3/uL (2.0-8.3); Neutrophils Percent Auto 56.6 % (45-73); Platelet Count 235 X10*3/uL (160-400); Red Blood Count 4.86 X10*6/uL (4.60-5.80); Red Cell Distribution Width 13.4 % (11.0-16.0); White Blood Count 7.2 X10*3/uL (4.8-10.8)
[2022-07-16 12:01] LABS: Alanine Aminotransferase 59 U/L (0-40); Albumin Level 4.5 g/dL (3.5-5.0); Alkaline Phosphatase 42 U/L (39-117); Anion Gap 13 (12-20); Aspartate Amino Transferase 29 U/L (5-37); Bilirubin Total 0.5 mg/dL (0.0-1.0); Blood Urea Nitrogen 16 mg/dL (9-16); Calcium 9.5 mg/dL (8.4-10.2); Carbon Dioxide 29 mmol/L (22-29); Chloride 105 mmol/L (96-108); Cholesterol 147 mg/dL; Estimated Glomerular Filt Rate 45; Glucose Fasting 109 mg/dL (60-99); HDL Cholesterol 38 mg/dL; LDL Cholesterol Calculated 78 mg/dl; Sodium 142 mmol/L (135-145); Thyroid Stimulating Hormone 2.33 uIU/mL (0.32-4.0); Total Protein 7.2 g/dL (6.5-8.0); Triglycerides 159 mg/dL
== END 2022-07-16 06:15 | disposition home or self-care (01) ==
LOC: HO.HMGCLDS 06:14
PROVIDERS: PCP Internal Medicine; Visit Provider Internal Medicine
DX: N28.9 Disorder of kidney and ureter, unspecified (principal); D64.9 Anemia, unspecified; E03.9 Hypothyroidism, unspecified; E78.5 Hyperlipidemia, unspecified
CPT/HCPCS: 36415; 80053; 80061; 84443; 85025

== ENCOUNTER 2022-09-04 08:53 | Outpatient (AMB) | payer MEDICARE, MEDICAID, SELFPAY ==
[2022-09-04 08:58] VITALS: BP 126/72; PULSE 66; BMI 32.4
--- NOTE | 2022-09-04 08:58 | MHC.OFFVIS ---
Intake Vital Signs 09/04/22 08:58 Height 5 ft 8 in Weight 213 lb 6.519 oz BMI 32.4 BP 126/72 Blood Pressure Location Lt brachial Position Sitting Pulse 66 Pulse Source Pulse Oximeter Intake Visit Reasons: 6M follow up Intake Note: 6 month follow up. 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 Accompanied by: Self / Same As Patient Allergies meloxicam Adverse Reaction (Severe, Verified 09/04/22 09:00) Chest Pain rosuvastatin Adverse Reaction (Severe, Verified 09/04/22 09:00) Muscle cramps baclofen Adverse Reaction (Unknown, Verified 09/04/22 09:00) chest pain meperidine [From Demerol] Adverse Reaction (Verified 09/04/22 09:00) Nausea simvastatin [From Zocor] Adverse Reaction (Verified 09/04/22 09:00) Muscle Pain Medication List - Last Reconciled 09/04/22 by Conor Garcia MD albuterol sulfate 90 mcg/actuation 2 puffs inhalation Q4-6H PRN aspirin (Adult Aspirin Regimen) 81 mg PO DAILY baclofen 10 mg PO BID enalapril maleate 20 mg PO DAILY esomeprazole magnesium 20 mg PO DAILY evolocumab (Repatha SureClick) 140 mg subcut Q2W 30 days gabapentin 300 mg PO TID hydrochlorothiazide 12.5 mg PO DAILY levothyroxine 75 mcg PO DAILY lorazepam 1 mg PO Q6H PRN triamcinolone acetonide 0.5% 1 appl topical TID HPI HPI Comments History of Present Illness Details 66-year-old gentleman here for follow-up. He had dyspnea on exertion and exertional chest tightness. He had echocardiography and stress test which did not show any significant abnormality. Given worsening chest tightness he was taken for cardiac catheterization. He was found to have no significant coronary artery disease. His filling pressures at rest were normal on right heart catheterization. He has dyspnea on exertion due to deconditioning and weight gain. He had carotid bruit and underwent carotid ultrasound which showed moderate right-sided carotid stenosis and mild left-sided carotid stenosis. He was on baby aspirin. He has statin intolerance and had tried different statins in the past. We again tried Crestor at 5 mg every other day but he developed significant muscle aches and could not tolerate Crestor. We were able to start him on Zetia but despite using Zetia his LDL cholesterol is 135. Given carotid stenosis is target is less than 70. 09/04/22: He returns for follow-up. He had blood workup in July 2022. Total cholesterol 147, triglyceride 159, LDL 78 and HDL 38. He is currently taking Repatha 140 mg every 2 weeks. Is saying when he uses Repatha the he gets itching at the site. No rash on the body or breathing issues or lip swelling. This is not a true allergic reaction. He continues to get shortness of breath with exertion specially going up hill. He is saying he does not walk and does not do physical exercise in his day-to-day life. He has no chest discomfort. Blood pressure control is good. [facility] Medical History Back pain Cook esophagus CESPEDES (dyspnea on exertion) Elevated cholesterol GERD (gastroesophageal reflux disease) Hypertension Hypothyroidism Obesity Screening for diabetes mellitus Screening for prostate cancer Surgical History History of esophagogastroduodenoscopy (EGD) Hx of cardiac catheterization Hx of colonoscopy Family History Father CVD (cardiovascular disease) Diabetes Myocardial infarct Mother Breast cancer Sister Colon cancer Son Substance use disorder Social History Housing: House Are you a primary healthcare educator to a significant other at home: No Do you presently have visiting nurse or other home services: No Alcohol intake: former Patient Tobacco Use Status: Former Tobacco user Tobacco use type: Cigarette Years Smoked: 30 +/- e-Cigarette/Vaping Use: Never Used Second Hand Smoke Exposure: No service: No Current occupational status: disabled Cognitive needs: No Hearing needs: No Vision needs: No Review of Systems Const Denies weakness ENT Denies dizziness Card Denies chest pain, Denies chest pain with activity, Denies syncope, Denies rapid heart rate, Denies pedal edema, Denies edema, Denies leg edema, Denies lightheadedness, Denies palpitations, Denies dyspnea, Denies dyspnea on exertion and Denies orthopnea Resp Denies cough, Denies dyspnea and Denies dyspnea on exertion GI Denies hematochezia and Denies change in stool character Musc Denies abnormal gait, Denies muscle cramps, Denies muscle weakness, Denies numbness, Denies radiating pain into limb and Denies tingling Neuro Denies abnormal gait, Denies dizziness, Denies syncope, Denies numbness, Denies tingling and Denies weakness Endo Denies palpitations Physical Exam GENERAL APPEARANCE: in no acute distress, well developed, well nourished. NECK/THYROID: Left carotid bruit, no jugular venous distention. SKIN: no suspicious lesions, warm and dry. HEART: no murmurs, regular rate and rhythm, S1, S2 normal. LUNGS: clear to auscultation bilaterally. ABDOMEN: normal, bowel sounds present, soft, nontender, nondistended. EXTREMITIES: no clubbing, cyanosis, or edema. PERIPHERAL PULSES: equal. NEUROLOGIC: nonfocal, alert and oriented. PSYCH: mood/affect full range. Assessment & Plan Assessment & Plan (1) Hyperlipidemia: Code(s): E78.5 - Hyperlipidemia, unspecified (2) Carotid stenosis: Code(s): I65.29 - Occlusion and stenosis of unspecified carotid artery (3) CESPEDES (dyspnea on exertion): Code(s): R06.00 - Dyspnea, unspecified (4) Hypertension: Code(s): I10 - Essential (primary) hypertension Qualifiers: Hypertension type: unspecified Qualified Code(s): I10 - Essential (primary) hypertension Plan 66-year-old gentleman is here for follow-up. He has background history of hypertension, hyperlipidemia and carotid stenosis. He has dyspnea on exertion which is due to deconditioning and his weight. The symptoms are fairly stable. He previously had left and right heart catheterization which did not show any coronary disease and his filling pressures at rest were normal. I explained to him that he should increase his physical activity. He will be following with pulmonology. Blood pressure control is good. He is doing well with PCSK9 inhibitor. He gets a local itching after injection but no rash locally or on the body or any lip swelling or tongue swelling. Thank you for allowing me to participate in the care of your patient. Please feel free to contact me if you have any questions. Coding Level of Care Code Est Pt Level 4 (27355) Diagnoses Hyperlipidemia E78.5 Carotid stenosis I65.29 CESPEDES (dyspnea on exertion) R06.00 Hypertension I10 Hypertension type: unspecified
== END 2022-09-04 09:19 | disposition home or self-care (01) ==
PROVIDERS: Visit Provider Internal Medicine Cardiovascular Disease
DX: E78.5 Hyperlipidemia, unspecified (principal); I65.29 Occlusion and stenosis of unspecified carotid artery; R06.00 Dyspnea, unspecified; I10 Essential (primary) hypertension
CPT/HCPCS: 99214

== ENCOUNTER → 2022-09-04 08:53 | Outpatient (BNVA) | payer MEDICARE, MEDICAID, SELFPAY | PROVIDERS: Visit Provider Internal Medicine Cardiovascular Disease | DX: E78.5 Hyperlipidemia, unspecified (principal); I65.29 Occlusion and stenosis of unspecified carotid artery; R06.00 Dyspnea, unspecified; I10 Essential (primary) hypertension | CPT/HCPCS: 99212 ==

== ENCOUNTER 2022-09-04 10:37 | Outpatient (AMB) | payer MEDICARE, MEDICAID, SELFPAY ==
[2022-09-04 10:39] VITALS: BP 130/78; PULSE 69; O2SAT 97; BMI 32.5
--- NOTE | 2022-09-04 10:39 | A.OFFVIS_ITS ---
Intake Vital Signs 09/04/22 10:39 Height 5 ft 8 in Weight 214 lb BMI 32.5 BP 130/78 Blood Pressure Location Lt brachial Position Sitting Pulse 69 Pulse Source Pulse Oximeter Temp Source Skin Pulse Oximetry (%) 97 Oxygen Delivery Method Room Air Intake Visit Reasons: SAWV Intake Note: Patient is here for an Annual Wellness Visit. 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 Therapy Supervisor Required: No Allergies meloxicam Adverse Reaction (Severe, Verified 09/04/22 10:39) Chest Pain rosuvastatin Adverse Reaction (Severe, Verified 09/04/22 10:39) Muscle cramps baclofen Adverse Reaction (Unknown, Verified 09/04/22 10:39) chest pain meperidine [From Demerol] Adverse Reaction (Verified 09/04/22 10:39) Nausea simvastatin [From Zocor] Adverse Reaction (Verified 09/04/22 10:39) Muscle Pain Medication List - Last Reconciled 09/04/22 by Kyree Valentino MD albuterol sulfate 90 mcg/actuation 2 puffs inhalation Q4-6H PRN aspirin (Adult Aspirin Regimen) 81 mg PO DAILY baclofen 10 mg PO BID enalapril maleate 20 mg PO DAILY esomeprazole magnesium 20 mg PO DAILY evolocumab (Repatha SureClick) 140 mg subcut Q2W 30 days gabapentin 300 mg PO TID hydrochlorothiazide 12.5 mg PO DAILY levothyroxine 75 mcg PO DAILY lorazepam 1 mg PO Q6H PRN triamcinolone acetonide 0.5% 1 appl topical TID HPI SAWV HPI Details HTN and hypothyroidism; stable PFSH Medical History Back pain Cook esophagus CESPEDES (dyspnea on exertion) Elevated cholesterol GERD (gastroesophageal reflux disease) Hypertension Hypothyroidism Obesity Screening for diabetes mellitus Screening for prostate cancer Surgical History History of esophagogastroduodenoscopy (EGD) Hx of cardiac catheterization Hx of colonoscopy Family History Father CVD (cardiovascular disease) Diabetes Myocardial infarct Mother Breast cancer Sister Colon cancer Son Substance use disorder Social History Housing: House Are you a primary health care manager to a significant other at home: No Do you presently have visiting nurse or other home services: No Alcohol intake: former Patient Tobacco Use Status: Former Tobacco user Tobacco use type: Cigarette Years Smoked: 30 +/- e-Cigarette/Vaping Use: Never Used Second Hand Smoke Exposure: No service: No Current occupational status: disabled Cognitive needs: No Hearing needs: No Vision needs: No Questionnaire Medicare Wellness Checkup [age] What gender do you identify with?: male During the past 4 weeks, how much have you been bothered by emotional problems such as feeling anxious, depressed, irritable, sad or downhearted, and blue?: not at all During the past 4 weeks, has your physical & emotional health limited your social activities with family, friends, neighbors, or groups?: not at all During the past 4 weeks, how much bodily pain have you generally had?: moderate pain During the past 4 weeks, was someone available to help you if you needed & wanted help?: yes, as much as I wanted During the past 4 weeks, what was the hardest physical activity you could do for at least 2 minutes?: moderate Can you get to places out of walking distance without help? (For eg., can you travel alone on buses, taxis or drive your car?): Yes Can you go shopping for groceries or clothes without someone's help?: Yes Can you prepare your own meals?: Yes Can you do your housework without help?: Yes Because of any health problems, do you need the help of another person with your personal care needs such as eating, bathing, dressing or getting around the house?: No Can you handle your own money without help?: Yes During the past 4 weeks, how would you rate your health in general?: good During the past 4 weeks how have things been going for you?: pretty well Are you having difficulties driving your car?: no Do you always fasten your seat belt when you are in a car?: yes, usually During past 4 weeks, have you been bothered by the following: never: Sexual problems?, Trouble eating well?, Teeth or denture problems?, Problems using the telephone? and Tiredness or fatigue? and seldom: Falling or dizzy when standing up Have you fallen 2 or more times in the past year?: No Are you afraid of falling?: No Are you a smoker?: no During the past 4 weeks, how many drinks of wine, beer, or other alcoholic beverages did you have?: no alcohol at all Do you exercise for about 20 minutes 3 or more times a week?: no, I usually do not exercise this much Have you been given information to help with the following?: no: Hazards in your house that might hurt you? and no: Keeping track of your medications? How often do you have trouble taking medicines the way you have been told to take them?: I always take medicine as prescribed How confident are you that you can control & manage most of your health problems?: very confident What is your race?: White Mini Mental State Exam (MMSE) Orientation What is the (year) (season) (date) (day) (month)?: year, season, date, day and month Where are we (state) (county) (town or city) (hospital) (floor)?: state, county, town or city, hospital/clinic and floor Registration Name of 3 unrelated objects clearly and slowly, then ask patient to repeat all 3 of them. (1st repeat determines score. Make sure they can repeat all three): object 1, object 2 and object 3 Attention & Calculation (CHOOSE ONE) Ask pt to begin with 100 & count backward by 7. Stop after 5 repeats. If pt cannot ask them to spell the word WORLD backward.: 93 and 86 Spell WORLD backwards (DLROW): 5 letters Recall Ask patient to repeat the 3 items from question #3.: object 1, object 2 and object 3 Score Score: 23 Activity of Daily Living Bathing - sponge bath, tub bath or shower: receives no assistance (gets in/out by self, if usual bathing means Dressing - getting clothes from closets & drawers, including inner/outer garments & fasteners.: gets clothes & gets completely dressed without help Toileting - going to the 'toilet room' for urine/bowel elimination & cleaning self/arranging clothes: goes to toilet room, cleans self, arranges clothes without help Transfer: moves in & out of bed and chair without help (may use support object) Continence: controls urination/bowel movements completely by self Feeding: feeds self without help Total Score: 0 Information obtained from: patient Using telephone: independent Traveling: independent Shopping: independent Preparing meals: independent Housework: independent Taking medicine: independent Managing money: independent PHQ-9 Over the last 2 weeks, how often have you been bothered by any of the following problems? 1. Little interest or pleasure in doing things: not at all 2. Feeling down, depressed, or hopeless: not at all 3. Trouble falling or staying asleep, or sleeping too much: not at all 4. Feeling tired or having little energy: not at all 5. Poor appetite or overeating: not at all 6. Feeling bad about yourself - or that you are a failure or have let yourself or your family down: not at all 7. Trouble concentrating on things, such as reading the newspaper or watching television: not at all 8. Moving or speaking so slowly that other people could have noticed. Or the opposite - being so fidgety or restless that you have been moving around a lot more than usual: not at all 9. Thoughts that you would be better off or of hurting yourself in some way: not at all Total score: 0 Depression Screening Interpretation: Negative 18287 - PHQ-9 Billing: Yes Source: Developed by Drs. Leroy Valentine, Teresa Mcnamara, Balta Francois and colleagues, with an educational yaniv from [employer]. AUDIT C Alcohol Use Questionnaire (AUDIT-C) 1. How often do you have a drink containing alcohol?: Never 3. How often do you have six or more drinks on one occasion?: Never Total Score: 0 Score Reviewed/Action Taken: Yes OTILIA-7 AMB Questionnaire OTILIA-7 Date OTILIA - 7 assessed: 09/04/22 Feeling nervous, anxious, or on edge: 0 = Not at all Not being able to stop or control worryin = Not at all Worrying too much about different things: 0 = Not at all Trouble relaxin = Not at all Being so restless that it is hard to sit still: 0 = Not at all Becoming easily annoyed or irritable: 0 = Not at all Feeling afraid as if something awful might happen: 0 = Not at all Total OTILIA-7 score (0-4 normal; 5-9 mild; 10-14 moderate; 15-21 severe): 0 Source: Developed by Drs. Leroy Valentine, Teresa Mcnamara, Balta Francois and colleagues, with an educational yaniv from [employer] OTILIA-7 Assessment Billing OTILIA-7 Assessment Tool: OTILIA-7 Assessment 76448 Thrive Questionnaire Date Thrive assessed: 03/05/22 Review of Systems Const Denies chills, Denies fatigue, Denies headache(s) and Denies weight loss Eyes Denies change in vision, Denies diplopia and Denies eye pain ENT Reports Normal hearing present, Denies vertigo, Denies dizziness, Denies headache(s) and Denies nasal discharge Card Denies chest pain, Denies rapid heart rate and Denies dyspnea on exertion Resp Denies chest congestion, Denies cough, Denies pain with cough and Denies dyspnea on exertion GI Denies abdominal pain, Denies hematochezia and Denies change in bowel habits Musc Denies myalgias, Denies arthralgias and Denies joint swelling Skin/Breast Denies lesions and Denies unusual bruising Neuro Reports Normal hearing present, Denies vertigo, Denies dizziness, Denies headache(s) and Denies focal weakness Endo Denies fatigue Physical Exam Vital Signs: Last Vital Signs Pulse 69 09/04/22 10:39 BP 130/78 09/04/22 10:39 Pulse Ox 97 09/04/22 10:39 Oxygen Delivery Method Room Air 09/04/22 10:39 BMI result Body Mass Index 32.5 Neuro Cranial nerves: Yes Normal hearing present Assessment & Plan Assessment & Plan (1) Encounter for subsequent annual wellness visit (AWV) in Medicare patient: Code(s): Z00.00 - Encounter for general adult medical examination without abnormal findings Plan: rhomberg and whisper tests nl (2) Hyperlipidemia: Code(s): E78.5 - Hyperlipidemia, unspecified Plan: stable; same rx (3) Hypothyroidism: Code(s): E03.9 - Hypothyroidism, unspecified Plan: stable; same rx (4) Hypothyroidism: Code(s): E03.9 - Hypothyroidism, unspecified Qualifiers: Hypothyroidism type: unspecified Qualified Code(s): E03.9 - Hypothyroidism, unspecified Plan: stable; same rx Orders: Orders Comprehensive [place]. Panel Fast Today N28.9 - Disorder of kidney and ureter, unspecified Lipid Panel Today E78.5 - Hyperlipidemia, unspecified Prostate Specific Antigen Scr Today Z00.00 - Encounter for general adult medical examination without abnormal findings Thyroid Stimulating Hormone Today E03.9 - Hypothyroidism, unspecified Complete Blood Count Auto Diff Today D64.9 - Anemia, unspecified Quality Reporting (2019) Depression/Bipolar (159/160/161/177) PHQ-9: Total score: 0 Coding Level of Care Code Medicare Subsequent (G0439) Diagnoses Encounter for subsequent annual wellness visit (AWV) in Medicare patient Z00.00 Hyperlipidemia E78.5 Hypothyroidism E03.9 CPT Codes Advance Care Planning - Advance Care Planning discussion: On file, no changes ([id number]) Additional Codes OTILIA-7 Assessment Billing - OTILIA-7 Assessment Tool: OTILIA-7 Assessment [id number] ([id number]) Advance Care Planning Advance Care Planning discussion: On file, no changes Forms completed: Health Care Proxy
== END 2022-09-04 11:07 | disposition home or self-care (01) ==
PROVIDERS: PCP Internal Medicine; Visit Provider Internal Medicine
DX: Z00.00 Encounter for general adult medical examination without abnormal findings (principal); E78.5 Hyperlipidemia, unspecified; E03.9 Hypothyroidism, unspecified
CPT/HCPCS: 1123F; G0439

== ENCOUNTER 2022-11-11 09:17 | Outpatient (REF) | payer MEDICARE, MEDICAID, SELFPAY ==
[2022-11-11 10:15] LABS: MANUAL DIFF FLAG NO
[2022-11-11 11:07] LABS: Basophils Absolute Auto 0.1 X10*3/uL (0.0-0.2); Eosinophils Absolute Auto 0.2 X10*3/uL (0.0-0.4); Eosinophils Percent Auto 2.3 % (0-4); Hematocrit 45.5 % (42.0-52.0); Hemoglobin 15.6 g/dl (14.0-18.0); Imm Gran Abs Auto 0.03 X10*3/uL (0.00-0.03); Imm Gran Pct Auto 0.4 % (0.0-0.4); Lymphocytes Percent Auto 27.1 % (20-40); Mean Corpuscular HGB Conc 34.3 g/dl (31.0-36.0); Mean Corpuscular Hemoglobin 31.5 pg (27.0-33.0); Mean Corpuscular Volume 91.7 fL (80.0-98.0); Mean Platelet Volume 10.8 fL (9.4-12.4); Monocytes Absolute Auto 0.8 X10*3/uL (0.1-1.2); Monocytes Percent Auto 10.6 % (2-11); Neutrophils Absolute Auto 4.3 x10*3/uL (2.0-8.3); Neutrophils Percent Auto 58.6 % (45-73); Platelet Count 228 X10*3/uL (160-400); Red Blood Count 4.96 X10*6/uL (4.60-5.80); Red Cell Distribution Width 13.3 % (11.0-16.0); White Blood Count 7.3 X10*3/uL (4.8-10.8)
== END 2022-11-11 09:18 | disposition home or self-care (01) ==
LOC: HO.LAB 09:17
PROVIDERS: PCP Internal Medicine; Visit Provider Internal Medicine Pulmonary Disease
DX: J44.9 Chronic obstructive pulmonary disease, unspecified (principal); R06.00 Dyspnea, unspecified; Z91.09 Other allergy status, other than to drugs and biological substances
CPT/HCPCS: 36415; 82785; 85025; 86003; 99212

== ENCOUNTER 2022-11-11 09:17 | Outpatient (AMB) | payer MEDICARE, MEDICAID, SELFPAY ==
--- NOTE | 2022-11-11 09:21 | A.OFFVIS_ITS ---
Intake Vital Signs 11/11/22 09:22 Height 5 ft 8 in Weight 218 lb 4.122 oz BMI 33.2 BP 137/82 Blood Pressure Location Lt brachial Position Sitting Pulse 77 Pulse Source Doppler Pulse Oximetry (%) 97 Oxygen Delivery Method Room Air Intake Visit Reasons: dyspnea Allergies meloxicam Adverse Reaction (Severe, Verified 11/11/22 09:26) Chest Pain rosuvastatin Adverse Reaction (Severe, Verified 11/11/22 09:26) Muscle cramps baclofen Adverse Reaction (Unknown, Verified 11/11/22 09:26) chest pain meperidine [From Demerol] Adverse Reaction (Verified 11/11/22 09:26) Nausea simvastatin [From Zocor] Adverse Reaction (Verified 11/11/22 09:26) Muscle Pain HPI dyspnea HPI Details 66-year-old gentleman, former 30+ pack-y ear smoker, quit 2015 previously followed for underlying asthma/COPD overlap syndrome, not seen in the office for to have years who now presents complaining of intermittent dyspnea on exertion, particularly after COVID-19 approximately after January of 2021. He has tried using albuterol MDI with no significant response. He does complain of some orthopnea and mild lower extremity edema. [facility] Medical History Back pain Cook esophagus CESPEDES (dyspnea on exertion) Elevated cholesterol GERD (gastroesophageal reflux disease) Hypertension Hypothyroidism Obesity Screening for diabetes mellitus Screening for prostate cancer Surgical History History of esophagogastroduodenoscopy (EGD) Hx of cardiac catheterization Hx of colonoscopy Family History Father CVD (cardiovascular disease) Diabetes Myocardial infarct Mother Breast cancer Sister Colon cancer Son Substance use disorder Social History Housing: House Are you a primary geriatric care manager to a significant other at home: No Do you presently have visiting nurse or other home services: No Alcohol intake: former Patient Tobacco Use Status: Former Tobacco user Tobacco use type: Cigarette Years Smoked: 30 +/- e-Cigarette/Vaping Use: Never Used Second Hand Smoke Exposure: No service: No Current occupational status: disabled Cognitive needs: No Hearing needs: No Vision needs: No Review of Systems Const Denies daytime sleepiness, Denies excessive sweating, Denies fatigue, Denies fever(s), Denies lethargy, Denies malaise, Denies night sweats, Denies snoring and Denies weight loss Eyes Denies blurry vision and Denies itchy eyes ENT Denies nasal congestion, Denies post nasal drip, Denies sinus pain, Denies sinus pressure and Denies other ( Thrush) Card Denies chest pain, Reports pedal edema, Denies dyspnea, Reports dyspnea on exertion, Denies orthopnea and Denies paroxysmal nocturnal dyspnea Resp Denies cough, Denies hemoptysis, Denies excessive phlegm production, Denies dyspnea, Reports dyspnea on exertion, Denies snoring and Denies wheezing GI Denies abdominal pain and Denies heartburn Musc Denies myalgias, Denies arthralgias and Denies joint swelling Skin/Breast Denies rash Neuro Denies memory loss and Denies seizure-like activity Psych Denies abnormal sleep pattern, Denies anxiety and Denies memory loss Endo Denies excessive sweating, Denies fatigue and Denies heat intolerance Matty/Lymph Denies easy bruising Aller/Immun Denies itchy eyes, Denies seasonal rhinorrhea and Denies wheezing Physical Exam Vital Signs: Last Vital Signs Pulse 77 11/11/22 09:22 BP 137/82 11/11/22 09:22 Pulse Ox 97 11/11/22 09:22 Oxygen Delivery Method Room Air 11/11/22 09:22 BMI result Body Mass Index 33.2 Const General: no acute distress and alert Nutritional Appearance: not obese Orientation/consciousness: Other orientation findings ( oriented) HEENT Head: Yes atraumatic Eyes General: appearance normal, both eyes and all related structures Sclerae: sclerae normal EOM: EOMs intact bilaterally Neck Neck: Yes supple Lymphatic: no lymphadenopathy noted Resp Effort & Inspection: normal respiratory effort and no use of accessory muscles Auscultation: clear to auscultation bilaterally Cardio Rate: regular rate Rhythm: regular rhythm Heart sounds: no gallops, no murmurs and no rubs Skin General skin exam: other ( warm) Extrem General: No clubbing, No cyanosis and Yes edema (1+ bilateral) Assessment & Plan Assessment & Plan (1) CESPEDES (dyspnea on exertion): Code(s): R06.00 - Dyspnea, unspecified Plan: Unclear etiology, may have underlying pulmonary and cardiac component. Will evaluate cardiac component with 2D echocardiogram. (2) Asthma-COPD overlap syndrome: Code(s): J44.9 - Chronic obstructive pulmonary disease, unspecified Plan: Underlying asthma/COPD overlap with no recent pulmonary function testing and exacerbation after COVID at the end of 2020. Will repeat full PFT. Will obtain IgE level, RAST, and CBC to evaluate immunologic component. Orders: Orders CA echo transthoracic complete Today R06.00 - Dyspnea, unspecified Complete Blood Count Auto Diff Today Z91.09 - Other allergy status, other than to drugs and biological substances Rast Allergen Today Z91.09 - Other allergy status, other than to drugs and biological substances PFT pulmonary function test Today J44.9 - Chronic obstructive pulmonary disease, unspecified Coding Level of Care Code Est Pt Level 4 (59945) Diagnoses CESPEDES (dyspnea on exertion) R06.00 Asthma-COPD overlap syndrome J44.9
[2022-11-11 09:22] VITALS: BP 137/82; PULSE 77; O2SAT 97; BMI 33.2
== END 2022-11-11 09:52 | disposition home or self-care (01) ==
PROVIDERS: PCP Internal Medicine; Visit Provider Internal Medicine Pulmonary Disease
DX: R06.00 Dyspnea, unspecified (principal); J44.9 Chronic obstructive pulmonary disease, unspecified
CPT/HCPCS: 99214

== ENCOUNTER 2022-12-08 06:24 | Outpatient (REF) | payer MEDICARE, MEDICAID, SELFPAY ==
[2022-12-08 12:06] LABS: MANUAL DIFF FLAG NO
[2022-12-08 12:17] LABS: Basophils Absolute Auto 0.1 X10*3/uL (0.0-0.2); Eosinophils Absolute Auto 0.2 X10*3/uL (0.0-0.4); Eosinophils Percent Auto 2.6 % (0-4); Hematocrit 44.7 % (42.0-52.0); Hemoglobin 15.1 g/dl (14.0-18.0); Imm Gran Abs Auto 0.02 X10*3/uL (0.00-0.03); Imm Gran Pct Auto 0.3 % (0.0-0.4); Lymphocytes Percent Auto 32.7 % (20-40); Mean Corpuscular HGB Conc 33.8 g/dl (31.0-36.0); Mean Corpuscular Hemoglobin 30.6 pg (27.0-33.0); Mean Corpuscular Volume 90.7 fL (80.0-98.0); Mean Platelet Volume 10.8 fL (9.4-12.4); Monocytes Absolute Auto 0.6 X10*3/uL (0.1-1.2); Monocytes Percent Auto 9.4 % (2-11); Neutrophils Absolute Auto 3.3 x10*3/uL (2.0-8.3); Platelet Count 225 X10*3/uL (160-400); Red Blood Count 4.93 X10*6/uL (4.60-5.80); Red Cell Distribution Width 13.5 % (11.0-16.0); White Blood Count 6.2 X10*3/uL (4.8-10.8)
[2022-12-08 12:41] LABS: Alanine Aminotransferase 56 U/L (0-40); Albumin Level 4.3 g/dL (3.5-5.0); Alkaline Phosphatase 37 U/L (39-117); Anion Gap 16 (12-20); Aspartate Amino Transferase 34 U/L (5-37); Bilirubin Total 0.5 mg/dL (0.0-1.0); Blood Urea Nitrogen 14 mg/dL (9-16); Calcium 9.1 mg/dL (8.4-10.2); Carbon Dioxide 25 mmol/L (22-29); Chloride 104 mmol/L (96-108); Cholesterol 132 mg/dL (<200); Estimated Glomerular Filt Rate 49; Glucose Fasting 115 mg/dL (60-99); HDL Cholesterol 32 mg/dL (>40); LDL Cholesterol Calculated 50 mg/dL (<100); Potassium 4.1 mmol/L (3.3-5.1); Sodium 141 mmol/L (135-145); Total Protein 7.3 g/dL (6.5-8.0); Triglycerides 254 mg/dL (<150)
[2022-12-08 12:47] LABS: Prostate Specific Antigen Scr 0.77 ng/mL (<0.05-4.0)
[2022-12-08 12:59] LABS: Thyroid Stimulating Hormone 3.13 uIU/mL (0.32-4.0)
== END 2022-12-08 06:25 | disposition home or self-care (01) ==
LOC: HO.HMGCLDS 06:24
PROVIDERS: PCP Internal Medicine; Visit Provider Internal Medicine
DX: Z13.89 Encounter for screening for other disorder (principal)
CPT/HCPCS: 36415; 80053; 80061; 84153; 84443; 85025

== ENCOUNTER 2022-12-08 07:07 | Outpatient (REF) | payer MEDICARE, MEDICAID, SELFPAY ==
--- NOTE | 2022-12-08 08:40 | PFT_ITS ---
FLOWS: 1. FEV1 127% of predicted at 3.54 L. 2. FVC 100% of predicted at 5.03 L. 3. FEV1 to FVC ratio of 0.71. 4. No bronchodilator response except in [id number] airways. LUNG VOLUMES: 1. Total lung capacity 104% of predicted at 6.94 L. 2. Residual volume 80% of predicted at 1.32 L. 3. Slow vital capacity 115% of predicted at 5.12 L. 4. Expiratory reserve volume 85% of predicted at 0.98 L. 5. Diffusion capacity is normal. IMPRESSION: Reversible mild obstructive ventilatory defect with no bronchodilator response except in [id number] airways. Bernardo Hood MD AP/MODL / [id number]
== END 2022-12-08 07:08 | disposition home or self-care (01) ==
LOC: HO.RESP 07:07
PROVIDERS: PCP Internal Medicine; Visit Provider Internal Medicine Pulmonary Disease
DX: J44.9 Chronic obstructive pulmonary disease, unspecified (principal); Z00.00 Encounter for general adult medical examination without abnormal findings; D64.9 Anemia, unspecified; N28.9 Disorder of kidney and ureter, unspecified; E78.5 Hyperlipidemia, unspecified; E03.9 Hypothyroidism, unspecified; Z12.5 Encounter for screening for malignant neoplasm of prostate
CPT/HCPCS: 36415; 80053; 80061; 84153; 84443; 85025; 94010; 94727; 94729

== ENCOUNTER → 2022-12-08 08:40 | Outpatient (BNV) | payer MEDICARE, MEDICAID, SELFPAY | PROVIDERS: PCP Internal Medicine; Visit Provider Internal Medicine Pulmonary Disease | DX: J44.9 Chronic obstructive pulmonary disease, unspecified (principal) | CPT/HCPCS: 94060; 94727; 94729 ==

== ENCOUNTER 2022-12-08 08:45 | Outpatient (AMB) | payer MEDICARE, MEDICAID, SELFPAY ==
[2022-12-08 10:23] VITALS: BP 148/70; PULSE 68; O2SAT 99; BMI 33.1
--- NOTE | 2022-12-08 10:23 | MHC.PC.OV ---
Vital Signs 12/08/22 10:23 Height 5 ft 8 in Weight 218 lb BMI 33.1 BP 148/70 H Blood Pressure Location Lt brachial Position Sitting Pulse 68 Pulse Source Pulse Oximeter Pulse Oximetry (%) 99 Oxygen Delivery Method Room Air Intake Visit Reasons: 3M Follow up Allergies meloxicam Adverse Reaction (Severe, Verified 12/08/22 10:24) Chest Pain rosuvastatin Adverse Reaction (Severe, Verified 12/08/22 10:24) Muscle cramps baclofen Adverse Reaction (Unknown, Verified 12/08/22 10:24) chest pain meperidine [From Demerol] Adverse Reaction (Verified 12/08/22 10:24) Nausea simvastatin [From Zocor] Adverse Reaction (Verified 12/08/22 10:24) Muscle Pain Medication List - Last Reconciled 12/08/22 by Kyree Valentino MD albuterol sulfate 90 mcg/actuation 2 puffs inhalation Q4-6H PRN aspirin (Adult Aspirin Regimen) 81 mg PO DAILY baclofen 10 mg PO BID enalapril maleate 20 mg PO DAILY esomeprazole magnesium 20 mg PO DAILY evolocumab (Repatha SureClick) 140 mg subcut Q2W 90 days gabapentin 300 mg PO TID hydrochlorothiazide 12.5 mg PO DAILY levothyroxine 75 mcg PO DAILY lorazepam 1 mg PO Q6H PRN triamcinolone acetonide 0.5% 1 appl topical TID Tobacco use date assessed: 06/04/22 Fall risk assessment: No Falls in past year Last assessed Fall Risk: 12/08/22 Dental Screening Dental Screen Date: 12/08/22 Did you have a dental visit in the last 12 months?: Yes Did you have a dental problem in the last 6 months where you did not have access to dental care?: No Was dental information given to patient?: Patient has dentist HPI 3M Follow up HPI Details asthma hypertension and hypothyroidism on rx; doing well PFSH Medical History Obesity Hypothyroidism Screening for prostate cancer Screening for diabetes mellitus Back pain Elevated cholesterol GERD (gastroesophageal reflux disease) Cook esophagus Hypertension CESPEDES (dyspnea on exertion) Surgical History Hx of cardiac catheterization History of esophagogastroduodenoscopy (EGD) Hx of colonoscopy Family History Father CVD (cardiovascular disease) Diabetes Myocardial infarct Mother Breast cancer Sister Colon cancer Son Substance use disorder Social History Housing: House Are you a primary clinical care coordinator to a significant other at home: No Do you presently have visiting nurse or other home services: No Alcohol intake: former Patient Tobacco Use Status: Former Tobacco user Tobacco use type: Cigarette Years Smoked: 30 +/- e-Cigarette/Vaping Use: Never Used Second Hand Smoke Exposure: No service: No Current occupational status: disabled Cognitive needs: No Hearing needs: No Vision needs: Yes Questionnaire PHQ-9 Over the last 2 weeks, how often have you been bothered by any of the following problems? 1. Little interest or pleasure in doing things: not at all 2. Feeling down, depressed, or hopeless: not at all 3. Trouble falling or staying asleep, or sleeping too much: not at all 4. Feeling tired or having little energy: not at all 5. Poor appetite or overeating: not at all 6. Feeling bad about yourself - or that you are a failure or have let yourself or your family down: not at all 7. Trouble concentrating on things, such as reading the newspaper or watching television: not at all 8. Moving or speaking so slowly that other people could have noticed. Or the opposite - being so fidgety or restless that you have been moving around a lot more than usual: not at all 9. Thoughts that you would be better off or of hurting yourself in some way: not at all Total score: 0 Depression Screening Interpretation: Negative Depression Screening Done: Yes 48518 - PHQ-9 Billing: Yes Source: Developed by Drs. Leroy Valentine, Teresa Mcnamara, Balta Francois and colleagues, with an educational yaniv from [employer]. Thrive Questionnaire Date Thrive assessed: 03/05/22 AUDIT C Alcohol Use Questionnaire (AUDIT-C) 1. How often do you have a drink containing alcohol?: Never 3. How often do you have six or more drinks on one occasion?: Never Total Score: 0 Score Reviewed/Action Taken: Yes OTILIA-7 AMB Questionnaire OTILIA-7 Date OTILIA - 7 assessed: 09/04/22 Source: Developed by Drs. Leroy Valentine, Teresa Mcnamara, Balta Francois and colleagues, with an educational yaniv from [employer]. Review of Systems Const Denies chills, Denies headache(s) and Denies weight loss ENT Denies headache(s) Card Denies chest pain, Denies syncope, Denies irregular heart rhythm and Denies dyspnea Resp Denies chest congestion, Denies cough and Denies dyspnea GI Denies abdominal pain, Denies change in stool character, Denies nausea and Denies vomiting Musc Denies deformity and Denies joint swelling Neuro Denies syncope and Denies headache(s) Physical exam (Primary Care) Vital Signs: Last Vital Signs Pulse 68 12/08/22 10:23 BP 148/70 H 12/08/22 10:23 Pulse Ox 99 12/08/22 10:23 Oxygen Delivery Method Room Air 12/08/22 10:23 BMI result Body Mass Index 33.1 Tobacco/Smoking Status: Tobacco use Status Tobacco use date assessed 06/04/22 12/08/22 10:28 Patient Tobacco Use Status Former Tobacco user 12/08/22 10:28 Tobacco use type Cigarette 12/08/22 10:28 e-Cigarette/Vaping Use Never Used 12/08/22 10:28 PHQ-9: PHQ-9 Score PHQ-9: Total score 0 12/08/22 10:28 Depression Screening Interpretation: Negative Thrive Assessment: Date of Thrive Assessment Date Thrive assessed 03/05/22 12/08/22 10:28 Const General: cooperative, comfortable, no acute distress and alert Neck Neck: Yes no lymphadenopathy Thyroid: Thyroid normal Resp Effort & Inspection: normal respiratory effort Auscultation: clear to auscultation bilaterally Percussion: percussion normal Cardio Jugular venous distension: no JVD Palpation: normal PMI Rate: regular rate Rhythm: regular rhythm Heart sounds: S1 normal heart sound present and S2 normal heart sound present GI Inspection: Yes normal to inspection Palpation (GI): No hepatosplenomegaly present Skin General skin exam: no rashes or lesions noted Extrem General: Yes no clubbing, cyanosis or edema Assessment and Plan Assessment & Plan (1) Hyperlipidemia: Code(s): E78.5 - Hyperlipidemia, unspecified Plan: stable; do labs (2) Hypothyroidism: Code(s): E03.9 - Hypothyroidism, unspecified Plan: stable; do labs (3) Hypertension: Code(s): I10 - Essential (primary) hypertension Qualifiers: Hypertension type: unspecified Qualified Code(s): I10 - Essential (primary) hypertension Plan: stable; do labs Coding Level of Care Code Est Pt Level 4 (51229) Diagnoses Hyperlipidemia E78.5 Hypothyroidism E03.9 Hypertension, unspecified type I10 Hypertension type: unspecified
== END 2022-12-08 10:57 | disposition home or self-care (01) ==
LOC: HO.HMGH 08:45
PROVIDERS: PCP Internal Medicine; Visit Provider Internal Medicine
DX: E78.5 Hyperlipidemia, unspecified (principal); E03.9 Hypothyroidism, unspecified; I10 Essential (primary) hypertension
CPT/HCPCS: 99214

== ENCOUNTER → 2022-12-10 08:37 | Outpatient (REF) | payer MEDICARE, MEDICAID, SELFPAY ==
--- NOTE | 2022-12-10 08:39 | CA_ITS ---
Transthoracic Echocardiogram Patient (Last, First, Middle): Girish Hale R Gender: Male Date of : 1955 Age: 66 Procedure Date: 12/10/2022 Procedure Type: Transthoracic Echocardiogram Location: OP Height: 172.72 cm Weight: 98.88 kg BSA: 2.12 m2 Heart Rate: bpm BP: 118 / 60 mmHg Combined Rail Operator: Referring MD: Bernardo Hood MD Language Instructor: Finn Hoyt MD Symptoms: R06.00 - Dyspnea, unspecified Study Quality: Good ECG Rhythm: Sinus Conclusions: - Normal study Findings Left Ventricle Normal left ventricular size, thickness, and systolic function. The visually estimated ejection fraction is between 60-65%. Spectral Doppler is indicative of a normal filling pattern. Right Ventricle Normal right ventricular cavity size and systolic function. Atria The left atrium is likely dilated. There is lipomatous hypertrophy of the interatrial septum. There is no evidence of interatrial shunt. The right atrium is normal in size. Aortic Valve Normal aortic valve structure and function. There is no aortic valve stenosis. There is no aortic valve regurgitation. Mitral Valve Normal mitral valve structure and function. There is trace mitral valve regurgitation. There is no mitral valve stenosis. Pulmonic Valve The pulmonic valve is likely normal. Tricuspid Valve Normal tricuspid valve structure. There is mild tricuspid valve regurgitation. The right ventricular systolic pressure is normal. The right ventricular systolic pressure is 28 mmHg. Normal right atrial pressure. There is no evidence of pulmonary hypertension. Great Vessels All visible segments of the aorta are normal in size. The pulmonary artery was not well visualized. Venous The inferior vena cava is normal in size and collapses greater than 50% with inspiration. Pericardium/Pleural There is no evidence of pericardial effusion. Measurements 2D Linear Measurements IVSd: 1.09 0.6-0.9/0.6-1.0 cm LVIDd: 4.05 3.9-5.3/4.2-5.9 cm LVIDd Index: 1.91 2.4-3.2/2.2-3.1 cm/m2 LVIDs: 2.63 2.0-3.6 cm LVPWd: 1.07 0.7-1.1 cm Ao Root: 2.60 2.1-3.5 cm LA Diam: 3.80 2.7-3.8/3.0-4.0 cm LAIDs Index: 1.79 1.5-2.3 cm/m2 LV Mass: 179.98 67-162/88-224 g LV Mass Index: 84.89 43-95/49-115 g/m2 LVOT Diam: 2.10 3.0+(-)1.3 cm Mitral Valve MV Pk E: 0.86 MV PK A: 0.75 MV Decel Time: 99.00 E/A: 1.10 E'Lateral: 12.20 E'Medial: 6.85 E/E' Med: 12.60 E/E' Lat: 7.10 PHT: 29.00 MVA PHT: 7.59 Decel Fallon: 8.74 Aortic Valve AoV Pk Miguel Angel: 1.45 AoV Mn Miguel Angel: 0.91 AoV VTI: 0.36 AoV Pk Grad: 8.00 Aov Mn Grad: 4.00 JUANCARLOS Cont.VTI: 2.64 LVOT LVOT Pk Miguel Angel: 1.31 LVOT Mn Miguel Angel: 0.76 LVOT VTI: 0.28 LVOT Pk Grad: 7.00 LVOT Mn Grad: 3.00 LVOT Diam: 2.10 LVOT Area: 3.46 Diastolic Function MV Pk E: 0.86 MV Pk A: 0.75 E/A: 1.10 E'Medial: 6.85 E/E' Med: 12.60 E' Laterial: 12.20 E/E' Lat: 7.10 Right Ventricle TAPSE (mm): 24.00 TVS' Miguel Angel: 9.00 Tricuspid Valve TR Pk Miguel Angel: 2.51 TR Pk Grad: 25.00 RA Press: 3.00 RVSP: 28.00 Great Vessels Aorta Ao Root-2D: 2.60 2.0-3.7 cm Ao Asc: 2.90 2.1-3.4 cm Pulmonary Valve PV Pk Miguel Angel: 1.28 Peak PV Grad: 7.00 Updated in Other Vendor System with Status of Final Finn Hoyt MD electronically signed on 12/10/2022 3:12:45 PM with status of Final
== END ==
LOC: HO.CARD 08:37
PROVIDERS: PCP Internal Medicine; Visit Provider Internal Medicine Pulmonary Disease
DX: R06.00 Dyspnea, unspecified (principal)
CPT/HCPCS: 93306

== ENCOUNTER → 2022-12-10 08:39 | Outpatient (BNV) | payer MEDICARE, MEDICAID, SELFPAY | PROVIDERS: PCP Internal Medicine; Visit Provider Internal Medicine Cardiovascular Disease | DX: I36.1 Nonrheumatic tricuspid (valve) insufficiency (principal) | CPT/HCPCS: 93306 ==

== ENCOUNTER 2022-12-16 10:30 | Outpatient (AMB) | payer MEDICARE, MEDICAID, SELFPAY ==
[2022-12-16 10:59] VITALS: BP 136/82; PULSE 69; O2SAT 94; BMI 33.7
--- NOTE | 2022-12-16 10:59 | A.OFFVIS_ITS ---
Intake Vital Signs 12/16/22 10:59 Height 5 ft 8 in Weight 221 lb 9.033 oz BMI 33.7 BP 136/82 Blood Pressure Location Rt brachial Position Sitting Pulse 69 Pulse Source Auscultation Pulse Oximetry (%) 94 Oxygen Delivery Method Room Air Intake Visit Reasons: dyspnea Allergies meloxicam Adverse Reaction (Severe, Verified 12/16/22 11:00) Chest Pain rosuvastatin Adverse Reaction (Severe, Verified 12/16/22 11:00) Muscle cramps baclofen Adverse Reaction (Unknown, Verified 12/16/22 11:00) chest pain meperidine [From Demerol] Adverse Reaction (Verified 12/16/22 11:00) Nausea simvastatin [From Zocor] Adverse Reaction (Verified 12/16/22 11:00) Muscle Pain HPI dyspnea HPI Details 66-year-old gentleman, former 30+ pack-y ear smoker, quit 2015 previously followed for underlying asthma/COPD overlap syndrome, not seen in the office for to have years who now presents complaining of intermittent dyspnea on exertion, particularly after COVID-19 approximately after January of 2021. He has tried using albuterol MDI with no significant response. He does complain of some orthopnea and mild lower extremity edema. At the last office visit patient has completed his pulmonary function testing that shows underlying reactive airway disease. His immunologic workup reviewed and he has significant underlying environmental allergies. [facility] Medical History Obesity Hypothyroidism Screening for prostate cancer Screening for diabetes mellitus Back pain Elevated cholesterol GERD (gastroesophageal reflux disease) Cook esophagus Hypertension CESPEDES (dyspnea on exertion) Surgical History Hx of cardiac catheterization History of esophagogastroduodenoscopy (EGD) Hx of colonoscopy Family History Father CVD (cardiovascular disease) Diabetes Myocardial infarct Mother Breast cancer Sister Colon cancer Son Substance use disorder Social History Housing: House Are you a primary home care manager rn to a significant other at home: No Do you presently have visiting nurse or other home services: No Alcohol intake: former Patient Tobacco Use Status: Former Tobacco user Tobacco use type: Cigarette Years Smoked: 30 +/- e-Cigarette/Vaping Use: Never Used Second Hand Smoke Exposure: No service: No Current occupational status: disabled Cognitive needs: No Hearing needs: No Vision needs: Yes Review of Systems Const Denies daytime sleepiness, Denies excessive sweating, Denies fatigue, Denies fever(s), Denies lethargy, Denies malaise, Denies night sweats, Denies snoring and Denies weight loss Eyes Denies blurry vision and Denies itchy eyes ENT Denies nasal congestion, Denies post nasal drip, Denies sinus pain, Denies sinus pressure and Denies other ( Thrush) Card Denies chest pain, Denies pedal edema, Denies dyspnea, Reports dyspnea on exertion, Denies orthopnea and Denies paroxysmal nocturnal dyspnea Resp Denies cough, Denies hemoptysis, Denies excessive phlegm production, Denies dyspnea, Reports dyspnea on exertion, Denies snoring and Denies wheezing GI Denies abdominal pain and Denies heartburn Musc Denies myalgias, Denies arthralgias and Denies joint swelling Skin/Breast Denies rash Neuro Denies memory loss and Denies seizure-like activity Psych Denies abnormal sleep pattern, Denies anxiety and Denies memory loss Endo Denies excessive sweating, Denies fatigue and Denies heat intolerance Matty/Lymph Denies easy bruising Aller/Immun Denies itchy eyes, Denies seasonal rhinorrhea and Denies wheezing Physical Exam Vital Signs: Last Vital Signs Pulse 69 12/16/22 10:59 BP 136/82 12/16/22 10:59 Pulse Ox 94 12/16/22 10:59 Oxygen Delivery Method Room Air 12/16/22 10:59 BMI result Body Mass Index 33.7 Const General: no acute distress and alert Nutritional Appearance: not obese Orientation/consciousness: Other orientation findings ( oriented) HEENT Head: Yes atraumatic Eyes General: appearance normal, both eyes and all related structures Sclerae: sclerae normal EOM: EOMs intact bilaterally Neck Neck: Yes supple Lymphatic: no lymphadenopathy noted Resp Effort & Inspection: normal respiratory effort and no use of accessory muscles Auscultation: clear to auscultation bilaterally Cardio Rate: regular rate Rhythm: regular rhythm Heart sounds: no gallops, no murmurs and no rubs Skin General skin exam: other ( warm) Extrem General: No clubbing, No cyanosis and No edema Assessment & Plan Assessment & Plan (1) Asthma-COPD overlap syndrome: Code(s): J44.9 - Chronic obstructive pulmonary disease, unspecified Plan: Suboptimally controlled at this time. Will start on Symbicort and continue albuterol MDI. (2) Environmental allergies: Code(s): Z91.09 - Other allergy status, other than to drugs and biological substances Plan: Results of RAST, CBC with differential, and IgE level reviewed. Underlying significant environmental allergies component, EF of fails to improve on inhaled corticosteroid, will consider immunologic therapy. Medications: New budesonide-formoterol 160-4.5 mcg/actuation (Symbicort) 2 puffs inhalation BID 10.2 grams 6RF 30 days Coding Level of Care Code Est Pt Level 4 (93849) Diagnoses Asthma-COPD overlap syndrome J44.9 Environmental allergies Z91.09
== END 2022-12-16 11:19 | disposition home or self-care (01) ==
PROVIDERS: PCP Internal Medicine; Visit Provider Internal Medicine Pulmonary Disease
DX: J44.9 Chronic obstructive pulmonary disease, unspecified (principal); Z91.09 Other allergy status, other than to drugs and biological substances
CPT/HCPCS: 99214

== ENCOUNTER → 2022-12-16 10:30 | Outpatient (BNVA) | payer MEDICARE, MEDICAID, SELFPAY | PROVIDERS: PCP Internal Medicine; Visit Provider Internal Medicine Pulmonary Disease | DX: J44.9 Chronic obstructive pulmonary disease, unspecified (principal); Z91.09 Other allergy status, other than to drugs and biological substances | CPT/HCPCS: 99212 ==

== ENCOUNTER 2023-01-06 08:46 | Outpatient (AMB) | payer MEDICARE, MEDICAID, SELFPAY ==
[2023-01-06 08:54] VITALS: BP 134/82; PULSE 68; BMI 33.7
--- NOTE | 2023-01-06 08:54 | MHC.OFFVIS ---
Intake Vital Signs 01/06/23 08:54 Height 5 ft 8 in Weight 221 lb 12.56 oz BMI 33.7 BP 134/82 Blood Pressure Location Lt brachial Position Sitting Pulse 68 Pulse Source Pulse Oximeter Intake Visit Reasons: 4 mth f/up Allergies meloxicam Adverse Reaction (Severe, Verified 01/06/23 08:56) Chest Pain rosuvastatin Adverse Reaction (Severe, Verified 01/06/23 08:56) Muscle cramps baclofen Adverse Reaction (Unknown, Verified 01/06/23 08:56) chest pain meperidine [From Demerol] Adverse Reaction (Verified 01/06/23 08:56) Nausea simvastatin [From Zocor] Adverse Reaction (Verified 01/06/23 08:56) Muscle Pain Medication List - Last Reconciled 01/06/23 by TATO Coleman albuterol sulfate 90 mcg/actuation 2 puffs inhalation Q4-6H PRN aspirin (Adult Aspirin Regimen) 81 mg PO DAILY baclofen 10 mg PO BID budesonide-formoterol 160-4.5 mcg/actuation (Symbicort) 2 puffs inhalation BID 30 days enalapril maleate 20 mg PO DAILY esomeprazole magnesium 20 mg PO DAILY evolocumab (Repatha SureClick) 140 mg subcut Q2W 90 days gabapentin 300 mg PO TID hydrochlorothiazide 12.5 mg PO DAILY levothyroxine 75 mcg PO DAILY lorazepam 1 mg PO Q6H PRN triamcinolone acetonide 0.5% 1 appl topical TID HPI 4 mth f/up HPI Details Girish is a 67-year-old male with past medical history of hypertension, hyperlipidemia, prior chest discomfort with cardiac catheterization showing no significant coronary artery disease, carotid stenosis who presents for follow-up. Today he reports that he has been feeling well since his last visit in August. He does have some shortness of breath with activity at times which he relates to his asthma and emphysema. He has not had any chest tightness recently. No heart palpitations, dizziness, presyncope, syncope, PND, orthopnea or edema. He is taking his Repatha as directed. He does notice itching around the site at times hours after the injection. He has not had any issues with rash, hives, shortness of breath or throat swelling following his medication administration. He reports good activity tolerance. [facility] Medical History Obesity Hypothyroidism Screening for prostate cancer Screening for diabetes mellitus Back pain Elevated cholesterol GERD (gastroesophageal reflux disease) Cook esophagus Hypertension CESPEDES (dyspnea on exertion) Surgical History Hx of cardiac catheterization History of esophagogastroduodenoscopy (EGD) Hx of colonoscopy Family History Father CVD (cardiovascular disease) Diabetes Myocardial infarct Mother Breast cancer Sister Colon cancer Son Substance use disorder Housing: House Are you a primary healthcare advisory services manager to a significant other at home: No Do you presently have visiting nurse or other home services: No Alcohol intake: former Patient Tobacco Use Status: Former Tobacco user Tobacco use type: Cigarette Years Smoked: 30 +/- e-Cigarette/Vaping Use: Never Used Second Hand Smoke Exposure: No service: No Current occupational status: disabled Cognitive needs: No Hearing needs: No Vision needs: Yes Review of Systems Const All systems reviewed & are unremarkable except as noted in HPI and below ENT Reports dizziness Card Denies chest pain, Denies chest pain at rest, Denies chest pain with activity, Denies rapid heart rate, Denies pedal edema, Denies edema, Denies leg edema, Denies lightheadedness, Denies palpitations, Denies dyspnea, Reports dyspnea on exertion and Denies orthopnea Resp Denies cough, Denies dyspnea and Reports dyspnea on exertion GI Denies hematochezia and Denies change in stool character Musc Denies abnormal gait, Denies limited range of motion, Denies muscle cramps, Denies muscle weakness, Denies numbness, Denies radiating pain into limb, Denies stiffness and Denies tingling Neuro Denies abnormal gait, Reports dizziness, Denies numbness and Denies tingling Endo Denies palpitations Physical Exam Vital Signs: Last Vital Signs Pulse 68 01/06/23 08:54 BP 134/82 01/06/23 08:54 BMI result Body Mass Index 33.7 Const General: cooperative, healthy appearing, comfortable and no acute distress Orientation/consciousness: patient oriented x3 Neck Neck: Yes normal visual inspection Resp Effort & Inspection: normal respiratory effort Auscultation: clear to auscultation bilaterally, no crackles, no rales, no rhonchi and no wheezes Cardio Jugular venous distension: no JVD Rate: regular rate Rhythm: regular rhythm Heart sounds: S1 normal heart sound present, S2 normal heart sound present, no murmurs and no rubs Neuro General: patient oriented x3 Extrem General: Yes normal to inspection, No no pedal edema and No calf tenderness Psych Appearance: grossly normal Mental Status: mental status grossly normal Speech and movement: Normal speech and movement present Assessment & Plan Assessment & Plan (1) Hypertension: Code(s): I10 - Essential (primary) hypertension Qualifiers: Hypertension type: unspecified Qualified Code(s): I10 - Essential (primary) hypertension Plan: History of hypertension. Currently well controlled with enalapril and hydrochlorothiazide. Labs done on 12/08/2022 shows, potassium 4.1 creatinine 1.44 which is stable for him. Has known chronic kidney disease. No medication changes made. (2) Hyperlipidemia: Code(s): E78.5 - Hyperlipidemia, unspecified Plan: [place] LDL goal less than 100. Patient is intolerant to statins. He has started on Repatha this past year and is doing well with the exception of itching around the injection sites. No other signs indicating any type of allergic reaction. Labs done on 12/08/2022 shows LDL 50. Continue sore a path without change. (3) Carotid stenosis: Code(s): I65.29 - Occlusion and stenosis of unspecified carotid artery Plan: Carotid ultrasound done 08/06/2021 shows right ICA 50-79% stenosis, left ICA 0-49% stenosis. Carotid ultrasound done on 01/20/2022 shows right and left ICA 0-49% stenosis each. Noted improvement since last ultrasound. At this time he is on Repatha and aspirin. Will update carotid ultrasound for comparison. No clear bruit noted on exam Orders: Orders US carotid duplex BI 2 Months I65.29 - Occlusion and stenosis of unspecified carotid artery, R09.89 - Other specified symptoms and signs involving the circulatory and respiratory systems Coding Level of Care Code Est Pt Level 4 (88298) Diagnoses Hypertension, unspecified type I10 Hypertension type: unspecified Hyperlipidemia E78.5 Carotid stenosis I65.29 Time Spent (min) 28
== END 2023-01-06 09:25 | disposition home or self-care (01) ==
PROVIDERS: PCP Internal Medicine; Visit Provider Nurse Practitioner Family
DX: I10 Essential (primary) hypertension (principal); E78.5 Hyperlipidemia, unspecified; I65.29 Occlusion and stenosis of unspecified carotid artery
CPT/HCPCS: 99214

== ENCOUNTER → 2023-01-06 08:46 | Outpatient (BNVA) | payer MEDICARE, MEDICAID, SELFPAY | PROVIDERS: PCP Internal Medicine; Visit Provider Nurse Practitioner Family | DX: I65.29 Occlusion and stenosis of unspecified carotid artery (principal); I10 Essential (primary) hypertension; E78.5 Hyperlipidemia, unspecified | CPT/HCPCS: 99212 ==

== ENCOUNTER 2023-03-02 09:33 | Outpatient (REF) | payer MEDICARE, MEDICAID, SELFPAY ==
--- NOTE | ~2023-03-02 | US_ITS ---
EXAMINATION: US EXTRACRANIAL CAROTID DUPLEX, BILATERAL CLINICAL INFORMATION: Carotid stenosis. COMPARISON: Carotid ultrasound 01/20/2022. TECHNIQUE: Real-time ultrasound and Doppler techniques (integrating B-mode 2-D vascular images, Doppler spectral analysis and color-flow Doppler imaging) were utilized to interrogate the extracranial carotid arteries, the vertebral arteries and proximal subclavian arteries bilaterally. The degree of stenosis is determined by criteria similar to NASCET. FINDINGS: Right Side: 1. There is mild atherosclerotic plaque seen in the bifurcation/proximal ICA region. 2. The common carotid artery PSV proximally is 101 cm/s and distally 97 cm/s. 3. The proximal internal carotid artery velocities are 118 cm/s systolic and 39 cm/s diastolic. 4. The proximal external carotid artery PSV is 123 cm/s. 5. The vertebral artery shows antegrade flow. 6. The subclavian artery waveforms are normal. Left Side: 1. There is mild atherosclerotic plaque seen in the bifurcation/proximal ICA region. 2. The common carotid artery PSV proximally is 102 cm/s and distally 83 cm/s. 3. The proximal internal carotid artery velocities are 83 cm/s systolic and 32 cm/s diastolic. 4. The proximal external carotid artery PSV is 93 cm/s. 5. The vertebral artery shows antegrade flow. 6. The subclavian artery waveforms are normal. US/US carotid duplex BI IMPRESSION: 1. RIGHT: Minimal, non-hemodynamically significant stenosis of the proximal right internal carotid artery corresponding to a 0-49% stenosis by velocity criteria. 2. LEFT: Minimal, non-hemodynamically significant stenosis of the proximal left internal carotid artery corresponding to a 0-49% stenosis by velocity criteria. 3. There is no change in the category severity of disease when compared to the previous study dated 01/20/2022.
== END 2023-03-02 09:34 | disposition home or self-care (01) ==
LOC: HO.HMGCX 09:33
PROVIDERS: PCP Internal Medicine; Visit Provider Nurse Practitioner Family
DX: I65.29 Occlusion and stenosis of unspecified carotid artery (principal); R09.89 Other specified symptoms and signs involving the circulatory and respiratory systems
CPT/HCPCS: 93880

== ENCOUNTER 2023-03-10 09:07 | Outpatient (AMB) | payer MEDICARE, MEDICAID, SELFPAY ==
[2023-03-10 09:11] VITALS: BP 130/70; PULSE 70; O2SAT 99; BMI 33.9
--- NOTE | 2023-03-10 09:11 | MHC.PC.OV ---
Vital Signs 03/10/23 09:11 Height 5 ft 8 in Weight 223 lb BMI 33.9 BP 130/70 Blood Pressure Location Lt brachial Position Sitting Pulse 70 Pulse Source Pulse Oximeter Pulse Oximetry (%) 99 Oxygen Delivery Method Room Air Intake Visit Reasons: 3mth f/u Transition Advisor Required: No Mineral Industry Teacher: Not Required per policy Accompanied by: Self / Same As Patient Allergies meloxicam Adverse Reaction (Severe, Verified 03/10/23 09:11) Chest Pain rosuvastatin Adverse Reaction (Severe, Verified 03/10/23 09:11) Muscle cramps baclofen Adverse Reaction (Unknown, Verified 03/10/23 09:11) chest pain meperidine [From Demerol] Adverse Reaction (Verified 03/10/23 09:11) Nausea simvastatin [From Zocor] Adverse Reaction (Verified 03/10/23 09:11) Muscle Pain Medication List - Last Reconciled 03/10/23 by Kyree Valentino MD albuterol sulfate 90 mcg/actuation 2 puffs inhalation Q4-6H PRN aspirin (Adult Aspirin Regimen) 81 mg PO DAILY baclofen 10 mg PO BID budesonide-formoterol 160-4.5 mcg/actuation (Symbicort) 2 puffs inhalation BID 30 days chlorhexidine gluconate 0.12% 15 mL buccal BID enalapril maleate 20 mg PO DAILY esomeprazole magnesium 20 mg PO DAILY evolocumab (Repatha SureClick) 140 mg subcut Q2W 90 days gabapentin 300 mg PO TID hydrochlorothiazide 12.5 mg PO DAILY levothyroxine 75 mcg PO DAILY lorazepam 1 mg PO Q6H PRN triamcinolone acetonide 0.5% 1 appl topical TID Tobacco use date assessed: 03/10/23 Fall risk assessment: No Falls in past year Last assessed Fall Risk: 03/10/23 Dental Screening Dental Screen Date: 03/10/23 Did you have a dental visit in the last 12 months?: Yes Did you have a dental problem in the last 6 months where you did not have access to dental care?: No Was dental information given to patient?: Patient has dentist HPI 3mth f/u HPI Details painful mass in right nostril for a few months PFSH Medical History Obesity Hypothyroidism Screening for prostate cancer Screening for diabetes mellitus Back pain Elevated cholesterol GERD (gastroesophageal reflux disease) Cook esophagus Hypertension CESPEDES (dyspnea on exertion) Surgical History Hx of cardiac catheterization History of esophagogastroduodenoscopy (EGD) Hx of colonoscopy Family History Father CVD (cardiovascular disease) Diabetes Myocardial infarct Mother Breast cancer Sister Colon cancer Son Substance use disorder Social History Housing: House Are you a primary direct care professional to a significant other at home: No Do you presently have visiting nurse or other home services: No Alcohol intake: former Patient Tobacco Use Status: Former Tobacco user Tobacco use type: Cigarette Years Smoked: 30 +/- e-Cigarette/Vaping Use: Never Used Second Hand Smoke Exposure: No service: No Current occupational status: disabled Cognitive needs: No Hearing needs: No Vision needs: Yes Questionnaire PHQ-9 Over the last 2 weeks, how often have you been bothered by any of the following problems? 1. Little interest or pleasure in doing things: not at all 2. Feeling down, depressed, or hopeless: not at all 3. Trouble falling or staying asleep, or sleeping too much: not at all 4. Feeling tired or having little energy: not at all 5. Poor appetite or overeating: not at all 6. Feeling bad about yourself - or that you are a failure or have let yourself or your family down: not at all 7. Trouble concentrating on things, such as reading the newspaper or watching television: not at all 8. Moving or speaking so slowly that other people could have noticed. Or the opposite - being so fidgety or restless that you have been moving around a lot more than usual: not at all 9. Thoughts that you would be better off or of hurting yourself in some way: not at all Total score: 0 Depression Screening Interpretation: Negative Depression Screening Done: Yes 50597 - PHQ-9 Billing: Yes Source: Developed by Drs. Leroy Valentine, Teresa Mcnamara, Balta Francois and colleagues, with an educational yaniv from [employer]. Thrive Questionnaire Date Thrive assessed: 03/10/23 I am a: Patient What is your living situation today?: I have a steady place to live Within the past 12 months, did the food you bought not last and you didn't have the money to get more?: Never true Within the past 12 months, did you worry whether your food would run out before you got money to buy more?: Never true Do you have trouble paying for medicines?: No Do you have trouble getting transportation to medical appointments?: No Do you have trouble paying your heating and electricity bill?: No Do you have trouble taking care of your child, family member or friend?: No Do you have trouble with day-to-day activities such as bathing, preparing meals, shopping, managing finances, etc.?: No Are you currently unemployed and looking for a job?: No Are you interested in more education?: No Please select the resources that you would like help with: None THRIVE Score: 0 AUDIT C Alcohol Use Questionnaire (AUDIT-C) 1. How often do you have a drink containing alcohol?: Never 3. How often do you have six or more drinks on one occasion?: Never Total Score: 0 Score Reviewed/Action Taken: Yes OTILIA-7 AMB Questionnaire OTILIA-7 Date OTILIA - 7 assessed: 03/10/23 Feeling nervous, anxious, or on edge: 0 = Not at all Not being able to stop or control worryin = Not at all Worrying too much about different things: 0 = Not at all Trouble relaxin = Not at all Being so restless that it is hard to sit still: 0 = Not at all Becoming easily annoyed or irritable: 0 = Not at all Feeling afraid as if something awful might happen: 0 = Not at all Total OTILIA-7 score (0-4 normal; 5-9 mild; 10-14 moderate; 15-21 severe): 0 Source: Developed by Drs. Leroy Valentine, Teresa Mcnamara, Balta Francois and colleagues, with an educational yaniv from [employer]. Review of Systems Const Denies chills, Denies headache(s) and Denies weight loss ENT Denies headache(s) Card Denies chest pain, Denies syncope, Denies irregular heart rhythm and Denies dyspnea Resp Denies chest congestion, Denies cough and Denies dyspnea GI Denies abdominal pain, Denies change in stool character, Denies nausea and Denies vomiting Musc Denies deformity and Denies joint swelling Neuro Denies syncope and Denies headache(s) Physical exam (Primary Care) Vital Signs: Last Vital Signs Pulse 70 03/10/23 09:11 BP 130/70 03/10/23 09:11 Pulse Ox 99 03/10/23 09:11 Oxygen Delivery Method Room Air 03/10/23 09:11 BMI result Body Mass Index 33.9 Tobacco/Smoking Status: Tobacco use Status Tobacco use date assessed 03/10/23 03/10/23 09:12 Patient Tobacco Use Status Former Tobacco user 03/10/23 09:12 Tobacco use type Cigarette 03/10/23 09:12 e-Cigarette/Vaping Use Never Used 03/10/23 09:12 PHQ-9: PHQ-9 Score PHQ-9: Total score 0 03/10/23 09:12 Depression Screening Interpretation: Negative Thrive Assessment: Date of Thrive Assessment Date Thrive assessed 03/10/23 03/10/23 09:12 Const General: cooperative, comfortable, no acute distress and alert HENMT Other: area of redness and swelling right external nare Neck Neck: Yes no lymphadenopathy Thyroid: Thyroid normal Resp Effort & Inspection: normal respiratory effort Auscultation: clear to auscultation bilaterally Percussion: percussion normal Cardio Jugular venous distension: no JVD Palpation: normal PMI Rate: regular rate Rhythm: regular rhythm Heart sounds: S1 normal heart sound present and S2 normal heart sound present GI Inspection: Yes normal to inspection Palpation (GI): No hepatosplenomegaly present Skin General skin exam: no rashes or lesions noted Extrem General: Yes no clubbing, cyanosis or edema Assessment and Plan Assessment & Plan (1) Nasal lesion: Code(s): J34.89 - Other specified disorders of nose and nasal sinuses Orders: Orders Lipid Panel Today E78.5 - Hyperlipidemia, unspecified Thyroid Stimulating Hormone Today E03.9 - Hypothyroidism, unspecified Referrals Ear/Nose/Throat Referral J34.89 - Other specified disorders of nose and nasal sinuses Medications: New chlorhexidine gluconate 0.12% 15 mL buccal BID 1,893 mL 2RF Coding Level of Care Code Est Pt Level 3 (41932) Diagnoses Nasal lesion J34.89
== END 2023-03-10 09:45 | disposition home or self-care (01) ==
PROVIDERS: PCP Internal Medicine; Visit Provider Internal Medicine
DX: J34.89 Other specified disorders of nose and nasal sinuses (principal)
CPT/HCPCS: 99213

== ENCOUNTER 2023-04-03 08:59 | Outpatient (AMB) | payer MEDICARE, MEDICAID, SELFPAY ==
[2023-04-03 09:05] VITALS: BP 127/77; PULSE 79; O2SAT 96; BMI 34.7
--- NOTE | 2023-04-03 09:05 | A.OFFVIS_ITS ---
Intake Vital Signs 04/03/23 09:05 Height 5 ft 8 in Weight 228 lb 2.855 oz BMI 34.7 BP 127/77 Blood Pressure Location Rt brachial Position Sitting Pulse 79 Pulse Source Doppler Pulse Oximetry (%) 96 Oxygen Delivery Method Room Air Intake Visit Reasons: Dyspnea Allergies meloxicam Adverse Reaction (Severe, Verified 04/03/23 09:08) Chest Pain rosuvastatin Adverse Reaction (Severe, Verified 04/03/23 09:08) Muscle cramps baclofen Adverse Reaction (Unknown, Verified 04/03/23 09:08) chest pain meperidine [From Demerol] Adverse Reaction (Verified 04/03/23 09:08) Nausea simvastatin [From Zocor] Adverse Reaction (Verified 04/03/23 09:08) Muscle Pain HPI Dyspnea HPI Details 66-year-old gentleman, former 30+ pack-y ear smoker, quit 2015 previously followed for underlying asthma/COPD overlap syndrome, not seen in the office for to have years who now presents complaining of intermittent dyspnea on exertion, particularly after COVID-19 approximately after January of 2021. He has tried using albuterol MDI with no significant response. He does complain of some orthopnea and mild lower extremity edema. After the last office visit patient was started on Symbicort with significant improvement in his symptoms, however he also has significant hoarseness intermittently after Symbicort use. [facility] Medical History Obesity Hypothyroidism Screening for prostate cancer Screening for diabetes mellitus Back pain Elevated cholesterol GERD (gastroesophageal reflux disease) Cook esophagus Hypertension CESPEDES (dyspnea on exertion) Surgical History Hx of cardiac catheterization History of esophagogastroduodenoscopy (EGD) Hx of colonoscopy Family History Father CVD (cardiovascular disease) Diabetes Myocardial infarct Mother Breast cancer Sister Colon cancer Son Substance use disorder Social History Housing: House Are you a primary regular senior care provider to a significant other at home: No Do you presently have visiting nurse or other home services: No Alcohol intake: former Patient Tobacco Use Status: Former Tobacco user Tobacco use type: Cigarette Years Smoked: 30 +/- e-Cigarette/Vaping Use: Never Used Second Hand Smoke Exposure: No service: No Current occupational status: disabled Cognitive needs: No Hearing needs: No Vision needs: Yes Review of Systems Const Denies daytime sleepiness, Denies excessive sweating, Denies fatigue, Denies fever(s), Denies lethargy, Denies malaise, Denies night sweats, Denies snoring and Denies weight loss Eyes Denies blurry vision and Denies itchy eyes ENT Denies nasal congestion, Denies post nasal drip, Denies sinus pain, Denies sinus pressure and Denies other ( Thrush) Card Denies chest pain, Denies pedal edema, Denies dyspnea, Denies orthopnea and Denies paroxysmal nocturnal dyspnea Resp Denies cough, Denies hemoptysis, Denies excessive phlegm production, Denies dyspnea, Denies snoring and Denies wheezing GI Denies abdominal pain and Denies heartburn Musc Denies myalgias, Denies arthralgias and Denies joint swelling Skin/Breast Denies rash Neuro Denies memory loss and Denies seizure-like activity Psych Denies abnormal sleep pattern, Denies anxiety and Denies memory loss Endo Denies excessive sweating, Denies fatigue and Denies heat intolerance Matty/Lymph Denies easy bruising Aller/Immun Denies itchy eyes, Denies seasonal rhinorrhea and Denies wheezing Physical Exam Vital Signs: Last Vital Signs Pulse 79 04/03/23 09:05 BP 127/77 04/03/23 09:05 Pulse Ox 96 04/03/23 09:05 Oxygen Delivery Method Room Air 04/03/23 09:05 BMI result Body Mass Index 34.7 Const General: no acute distress and alert Nutritional Appearance: not obese Orientation/consciousness: Other orientation findings ( oriented) HEENT Head: Yes atraumatic Eyes General: appearance normal, both eyes and all related structures Sclerae: sclerae normal EOM: EOMs intact bilaterally Neck Neck: Yes supple Lymphatic: no lymphadenopathy noted Resp Effort & Inspection: normal respiratory effort and no use of accessory muscles Auscultation: clear to auscultation bilaterally Cardio Rate: regular rate Rhythm: regular rhythm Heart sounds: no gallops, no murmurs and no rubs Skin General skin exam: other ( warm) Extrem General: No clubbing, No cyanosis and No edema Assessment & Plan Assessment & Plan (1) Asthma-COPD overlap syndrome: Code(s): J44.9 - Chronic obstructive pulmonary disease, unspecified Plan: Significantly improved symptom control on Symbicort, however also with hoarseness after inhaled corticosteroid use. Patient has been advised to decrease his Symbicort dose to 1 puff twice a day. (2) Environmental allergies: Code(s): Z91.09 - Other allergy status, other than to drugs and biological substances Plan: Improved control on inhaled corticosteroid, if symptoms worsen, will consider immunologic therapy. Coding Level of Care Code Est Pt Level 4 (96193) Diagnoses Asthma-COPD overlap syndrome J44.9 Environmental allergies Z91.09
== END 2023-04-03 09:23 | disposition home or self-care (01) ==
PROVIDERS: PCP Internal Medicine; Visit Provider Internal Medicine Pulmonary Disease
DX: J44.9 Chronic obstructive pulmonary disease, unspecified (principal); Z91.09 Other allergy status, other than to drugs and biological substances
CPT/HCPCS: 99214

== ENCOUNTER → 2023-04-03 08:59 | Outpatient (BNVA) | payer MEDICARE, MEDICAID, SELFPAY | PROVIDERS: PCP Internal Medicine; Visit Provider Internal Medicine Pulmonary Disease | DX: J44.9 Chronic obstructive pulmonary disease, unspecified (principal); Z91.09 Other allergy status, other than to drugs and biological substances | CPT/HCPCS: 99212 ==

== ENCOUNTER 2023-05-11 06:23 | Outpatient (REF) | payer MEDICARE, MEDICAID, SELFPAY ==
[2023-05-11 10:46] LABS: Cholesterol 141 mg/dL (<200); HDL Cholesterol 35 mg/dL (>40); LDL Cholesterol Calculated 70 mg/dL (<100); Triglycerides 182 mg/dL (<150)
[2023-05-11 10:51] LABS: Thyroid Stimulating Hormone 2.73 uIU/mL (0.32-4.0)
== END 2023-05-11 06:24 | disposition home or self-care (01) ==
LOC: HO.HMGCLDS 06:23
PROVIDERS: PCP Internal Medicine; Visit Provider Internal Medicine
DX: E78.5 Hyperlipidemia, unspecified (principal); E03.9 Hypothyroidism, unspecified
CPT/HCPCS: 36415; 80061; 84443

== ENCOUNTER 2023-06-09 09:10 | Outpatient (AMB) | payer MEDICARE, MEDICAID, SELFPAY ==
[2023-06-09 09:12] VITALS: BP 146/82; PULSE 85; O2SAT 96; BMI 33.8
--- NOTE | 2023-06-09 09:12 | A.OFFPC_ITS ---
Vital Signs 06/09/23 09:12 Height 5 ft 8 in Weight 222 lb BMI 33.8 BP 146/82 H Blood Pressure Location Lt brachial Position Sitting Pulse 85 Pulse Source Pulse Oximeter Pulse Oximetry (%) 96 Oxygen Delivery Method Room Air Intake Visit Reasons: 3 month f/u Sanforizing Machine Operator Required: No Binitrotoluene Operator: Not Required per policy Accompanied by: Self / Same As Patient Allergies meloxicam Adverse Reaction (Severe, Verified 06/09/23 09:12) Chest Pain rosuvastatin Adverse Reaction (Severe, Verified 06/09/23 09:12) Muscle cramps baclofen Adverse Reaction (Unknown, Verified 06/09/23 09:12) chest pain meperidine [From Demerol] Adverse Reaction (Verified 06/09/23 09:12) Nausea simvastatin [From Zocor] Adverse Reaction (Verified 06/09/23 09:12) Muscle Pain Medication List - Last Reconciled 06/10/23 by Kyree Valentino MD albuterol sulfate 90 mcg/actuation 2 puffs inhalation Q4-6H PRN aspirin (Adult Aspirin Regimen) 81 mg PO DAILY baclofen 10 mg PO BID budesonide-formoterol 160-4.5 mcg/actuation (Symbicort) 2 puffs inhalation BID 30 days chlorhexidine gluconate 0.12% 15 mL buccal BID enalapril maleate 20 mg PO DAILY esomeprazole magnesium 20 mg PO DAILY evolocumab (Repatha SureClick) 140 mg subcut Q2W gabapentin 300 mg PO TID hydrochlorothiazide 12.5 mg PO DAILY levothyroxine 75 mcg PO DAILY lorazepam 1 mg PO Q6H PRN triamcinolone acetonide 0.5% 1 appl topical TID Tobacco use date assessed: 03/10/23 Fall risk assessment: No Falls in past year Last assessed Fall Risk: 06/09/23 Dental Screening Dental Screen Date: 03/10/23 HPI 3 month f/u HPI Details hypertension hypothyroidism and chronic anxiety; stable on rx PFSH Medical History Obesity Hypothyroidism Screening for prostate cancer Screening for diabetes mellitus Back pain Elevated cholesterol GERD (gastroesophageal reflux disease) Cook esophagus Hypertension CESPEDES (dyspnea on exertion) Surgical History Hx of cardiac catheterization History of esophagogastroduodenoscopy (EGD) Hx of colonoscopy Family History Father CVD (cardiovascular disease) Diabetes Myocardial infarct Mother Breast cancer Sister Colon cancer Son Substance use disorder Social History Housing: House Are you a primary child care associate to a significant other at home: No Do you presently have visiting nurse or other home services: No Alcohol intake: former Patient Tobacco Use Status: Former Tobacco user Tobacco use type: Cigarette Years Smoked: 30 +/- e-Cigarette/Vaping Use: Never Used Second Hand Smoke Exposure: No service: No Current occupational status: disabled Cognitive needs: No Hearing needs: No Vision needs: Yes (glasses) Questionnaire Thrive Questionnaire Date Thrive assessed: 03/10/23 OTILIA-7 AMB Questionnaire OTILIA-7 Date OTILIA - 7 assessed: 03/10/23 Source: Developed by Drs. Leroy Valentine, Teresa Mcnamara, Balta Francois and colleagues, with an educational yaniv from [employer]. Review of Systems Const Denies chills, Denies headache(s) and Denies weight loss ENT Denies headache(s) Card Denies chest pain, Denies syncope, Denies irregular heart rhythm and Denies dyspnea Resp Denies chest congestion, Denies cough and Denies dyspnea GI Denies abdominal pain, Denies change in stool character, Denies nausea and Denies vomiting Musc Denies deformity and Denies joint swelling Neuro Denies syncope and Denies headache(s) Physical exam (Primary Care) Vital Signs: Last Vital Signs Pulse 85 06/09/23 09:12 BP 146/82 H 06/09/23 09:12 Pulse Ox 96 06/09/23 09:12 Oxygen Delivery Method Room Air 06/09/23 09:12 BMI result Body Mass Index 33.8 Tobacco/Smoking Status: Tobacco use Status Tobacco use date assessed 03/10/23 06/09/23 09:13 Patient Tobacco Use Status Former Tobacco user 06/09/23 09:13 Tobacco use type Cigarette 06/09/23 09:13 e-Cigarette/Vaping Use Never Used 06/09/23 09:13 Thrive Assessment: Date of Thrive Assessment Date Thrive assessed 03/10/23 06/09/23 09:13 Const General: cooperative, comfortable, no acute distress and alert Neck Neck: Yes no lymphadenopathy Thyroid: Thyroid normal Resp Effort & Inspection: normal respiratory effort Auscultation: clear to auscultation bilaterally Percussion: percussion normal Cardio Jugular venous distension: no JVD Palpation: normal PMI Rate: regular rate Rhythm: regular rhythm Heart sounds: S1 normal heart sound present and S2 normal heart sound present GI Inspection: Yes normal to inspection Palpation (GI): No hepatosplenomegaly present Skin General skin exam: no rashes or lesions noted Extrem General: Yes no clubbing, cyanosis or edema Assessment and Plan Assessment & Plan (1) Hypothyroidism: Code(s): E03.9 - Hypothyroidism, unspecified Plan: stable same rx (2) Hypertension: Code(s): I10 - Essential (primary) hypertension Qualifiers: Hypertension type: unspecified Qualified Code(s): I10 - Essential (primary) hypertension Plan: stable; same rx (3) Anxiety: Code(s): F41.9 - Anxiety disorder, unspecified Plan: stable; same rx Orders: Orders Thyroid Stimulating Hormone Today Z13.29 - Encounter for screening for other suspected endocrine disorder Coding Level of Care Code Est Pt Level 4 (48345) Diagnoses Hypothyroidism E03.9 Hypertension, unspecified type I10 Hypertension type: unspecified Anxiety F41.9
== END 2023-06-09 09:39 | disposition home or self-care (01) ==
PROVIDERS: PCP Internal Medicine; Visit Provider Internal Medicine
DX: E03.9 Hypothyroidism, unspecified (principal); I10 Essential (primary) hypertension; F41.9 Anxiety disorder, unspecified
CPT/HCPCS: 99214

== ENCOUNTER 2023-07-14 09:14 | Outpatient (REF) | payer MEDICARE, MEDICAID, SELFPAY ==
--- NOTE | ~2023-07-14 | MR_ITS ---
EXAMINATION: MR BRAIN WITHOUT AND WITH CONTRAST CLINICAL INFORMATION: Sudden hearing loss COMPARISON: None TECHNIQUE: Multiplanar multisequence MR imaging of the brain was obtained without and following the administration of 10 mL Gadavist intravenous contrast. FINDINGS: There is no acute infarct on diffusion-weighted imaging. There is no intracranial hemorrhage on iron-sensitive imaging. No extra-axial collection or mass effect/herniation. Normal parenchymal signal characteristics. The 7th and 8th cranial nerve complexes are symmetric in course, caliber, and enhancement characteristics. Major inner ear structures including the cochlea, semicircular canals, and vestibule are symmetric in morphology and demonstrate normal CSF signal. No enhancing intracanalicular or cerebellopontine angle mass lesion is visualized. No hydrocephalus. The ventricles are normal in morphology and size. No abnormal parenchymal or extra-axial enhancement. The major flow voids at the skull base are preserved. The midline structures are normal. The cerebellar tonsils are normally positioned. The craniocervical junction is normal. Marrow signal is within normal limits. The visualized soft tissues are without significant abnormality. No signal abnormality within the paranasal sinuses or within the mastoid air cells. MR/MR head/brain wo/w con IMPRESSION: Unremarkable contrast enhanced MRI of the brain.
[2023-07-14] MEDS: gadobutroL 10 ML VIAL IVPUSH (10:57)
== END 2023-07-14 09:15 | disposition home or self-care (01) ==
LOC: HO.MRI 09:14
PROVIDERS: PCP Internal Medicine; Visit Provider Otolaryngology
DX: H90.3 Sensorineural hearing loss, bilateral (principal)
CPT/HCPCS: 70553; A9585

== ENCOUNTER 2023-09-03 08:28 | Outpatient (AMB) | payer MEDICARE, MEDICAID, SELFPAY ==
[2023-09-03 09:23] VITALS: BP 128/74; PULSE 73; O2SAT 96; BMI 33.2
--- NOTE | 2023-09-03 09:23 | A.OFFVIS_ITS ---
Vital Signs 09/03/23 09:23 Height 5 ft 8 in Weight 218 lb 4.122 oz BMI 33.2 BP 128/74 Blood Pressure Location Rt brachial Position Sitting Pulse 73 Pulse Source Doppler Pulse Oximetry (%) 96 Oxygen Delivery Method Room Air Intake Visit Reasons: COPD Allergies meloxicam Adverse Reaction (Severe, Verified 06/09/23 09:12) Chest Pain rosuvastatin Adverse Reaction (Severe, Verified 06/09/23 09:12) Muscle cramps baclofen Adverse Reaction (Unknown, Verified 06/09/23 09:12) chest pain meperidine [From Demerol] Adverse Reaction (Verified 06/09/23 09:12) Nausea simvastatin [From Zocor] Adverse Reaction (Verified 06/09/23 09:12) Muscle Pain HPI HPI COPD: Details: 67-year-old gentleman, former 30+ pack-year smoker, quit 2016 previously followed for underlying asthma/COPD overlap syndrome, and environmental allergies. He has been tried on Symbicort, Stiolto albuterol MDI with suboptimal control of his symptoms. He is interested in immunologic therapy. He denies acute exacerbations. [facility] Medical History Obesity Hypothyroidism Screening for prostate cancer Screening for diabetes mellitus Back pain Elevated cholesterol GERD (gastroesophageal reflux disease) Cook esophagus Hypertension CESPEDES (dyspnea on exertion) Surgical History Hx of cardiac catheterization History of esophagogastroduodenoscopy (EGD) Hx of colonoscopy Family History Father CVD (cardiovascular disease) Diabetes Myocardial infarct Mother Breast cancer Sister Colon cancer Son Substance use disorder Social History Housing: House Are you a primary healthcare facility administrator to a significant other at home: No Do you presently have visiting nurse or other home services: No Alcohol intake: former Patient Tobacco Use Status: Former Tobacco user Tobacco use type: Cigarette Years Smoked: 30 +/- e-Cigarette/Vaping Use: Never Used Second Hand Smoke Exposure: No service: No Current occupational status: disabled Cognitive needs: No Hearing needs: No Vision needs: Yes (glasses) Review of Systems Const Denies daytime sleepiness, Denies excessive sweating, Denies fatigue, Denies fever(s), Denies lethargy, Denies malaise, Denies night sweats, Denies snoring and Denies weight loss Eyes Denies blurry vision and Denies itchy eyes ENT Denies nasal congestion, Denies post nasal drip, Denies sinus pain, Denies sinus pressure and Denies other ( Thrush) Card Denies chest pain, Denies pedal edema, Denies dyspnea, Reports dyspnea on exertion, Denies orthopnea and Denies paroxysmal nocturnal dyspnea Resp Denies cough, Denies hemoptysis, Denies excessive phlegm production, Denies dyspnea, Reports dyspnea on exertion, Denies snoring and Reports wheezing GI Denies abdominal pain and Denies heartburn Musc Denies myalgias, Denies arthralgias and Denies joint swelling Skin/Breast Denies rash Neuro Denies memory loss and Denies seizure-like activity Psych Denies abnormal sleep pattern, Denies anxiety and Denies memory loss Endo Denies excessive sweating, Denies fatigue and Denies heat intolerance Matty/Lymph Denies easy bruising Aller/Immun Denies itchy eyes, Denies seasonal rhinorrhea and Reports wheezing Physical Exam Vital Signs: Last Vital Signs Pulse 73 09/03/23 09:23 BP 128/74 09/03/23 09:23 Pulse Ox 96 09/03/23 09:23 Oxygen Delivery Method Room Air 09/03/23 09:23 BMI result Body Mass Index 33.2 Const General: no acute distress and alert Nutritional Appearance: obese Orientation/consciousness: Other orientation findings ( oriented) HEENT Head: Yes atraumatic Eyes General: appearance normal, both eyes and all related structures Sclerae: sclerae normal EOM: EOMs intact bilaterally Neck Neck: Yes supple Lymphatic: no lymphadenopathy noted Resp Effort & Inspection: normal respiratory effort and no use of accessory muscles Auscultation: clear to auscultation bilaterally Cardio Rate: regular rate Rhythm: regular rhythm Heart sounds: no gallops, no murmurs and no rubs Skin General skin exam: other ( warm) Extrem General: No clubbing, No cyanosis and No edema Assessment & Plan Assessment & Plan (1) Asthma-COPD overlap syndrome: Code(s): J44.9 - Chronic obstructive pulmonary disease, unspecified Category: Medical Plan: Suboptimal response to Symbicort and Stiolto. Will request Xolair approval. Continue albuterol MDI. (2) Environmental allergies: Code(s): Z91.09 - Other allergy status, other than to drugs and biological substances Category: Medical Plan: Expect to improve on Xolair. Coding Level of Care Code Est Pt Level 4 (47812) Diagnoses Asthma-COPD overlap syndrome J44.9 Environmental allergies Z91.09
== END 2023-09-03 09:45 | disposition home or self-care (01) ==
PROVIDERS: PCP Internal Medicine; Visit Provider Internal Medicine Pulmonary Disease
DX: J44.9 Chronic obstructive pulmonary disease, unspecified (principal); Z91.09 Other allergy status, other than to drugs and biological substances
CPT/HCPCS: 99214

== ENCOUNTER → 2023-09-03 08:28 | Outpatient (BNVA) | payer MEDICARE, MEDICAID, SELFPAY | PROVIDERS: PCP Internal Medicine; Visit Provider Internal Medicine Pulmonary Disease | DX: J44.9 Chronic obstructive pulmonary disease, unspecified (principal); Z91.09 Other allergy status, other than to drugs and biological substances | CPT/HCPCS: 99212 ==

== ENCOUNTER 2023-09-08 09:24 | Outpatient (AMB) | payer MEDICARE, MEDICAID, SELFPAY ==
--- NOTE | 2023-09-08 09:26 | A.OFFPC_ITS ---
Vital Signs 09/08/23 09:27 Height 5 ft 8 in Weight 218 lb BMI 33.1 BP 130/72 Blood Pressure Location Lt brachial Position Sitting Pulse 80 Pulse Source Pulse Oximeter Pulse Oximetry (%) 98 Oxygen Delivery Method Room Air Intake Visit Reasons: 3mth f/u Chief Dispatcher: Not Required per policy Accompanied by: Self / Same As Patient Allergies meloxicam Adverse Reaction (Severe, Verified 09/08/23 09:27) Chest Pain rosuvastatin Adverse Reaction (Severe, Verified 09/08/23 09:27) Muscle cramps baclofen Adverse Reaction (Unknown, Verified 09/08/23 09:27) chest pain meperidine [From Demerol] Adverse Reaction (Verified 09/08/23 09:27) Nausea simvastatin [From Zocor] Adverse Reaction (Verified 09/08/23 09:27) Muscle Pain Medication List - Last Reconciled 09/08/23 by Kyree Valentino MD albuterol sulfate 90 mcg/actuation 2 puffs inhalation Q4-6H PRN aspirin (Adult Aspirin Regimen) 81 mg PO DAILY baclofen 10 mg PO BID chlorhexidine gluconate 0.12% 15 mL buccal BID enalapril maleate 20 mg PO DAILY esomeprazole magnesium 20 mg PO DAILY evolocumab (Repatha SureClick) 140 mg subcut Q2W gabapentin 300 mg PO TID hydrochlorothiazide 12.5 mg PO DAILY levothyroxine 75 mcg PO DAILY lorazepam 1 mg PO Q6H PRN Stiolto Respimat 2.5-2.5 mcg/actuation (tiotropium-olodaterol) 2 puffs inhalation DAILY 30 days NS triamcinolone acetonide 0.5% 1 appl topical TID Tobacco use date assessed: 03/10/23 Fall risk assessment: No Falls in past year Last assessed Fall Risk: 09/08/23 Dental Screening Dental Screen Date: 03/10/23 HPI 3mth f/u HPI Details hypertension on rx; doing well and compliant [facility] Medical History Obesity Hypothyroidism Screening for prostate cancer Screening for diabetes mellitus Back pain Elevated cholesterol GERD (gastroesophageal reflux disease) Cook esophagus Hypertension CESPEDES (dyspnea on exertion) Surgical History Hx of cardiac catheterization History of esophagogastroduodenoscopy (EGD) Hx of colonoscopy Family History Father CVD (cardiovascular disease) Diabetes Myocardial infarct Mother Breast cancer Sister Colon cancer Son Substance use disorder Social History Housing: House Are you a primary rn patient care to a significant other at home: No Do you presently have visiting nurse or other home services: No Alcohol intake: former Patient Tobacco Use Status: Former Tobacco user Tobacco use type: Cigarette Years Smoked: 30 +/- e-Cigarette/Vaping Use: Never Used Second Hand Smoke Exposure: No service: No Current occupational status: disabled Cognitive needs: No Hearing needs: No Vision needs: Yes (glasses) Questionnaire Thrive Questionnaire Date Thrive assessed: 03/10/23 OTILIA-7 AMB Questionnaire OTILIA-7 Date OTILIA - 7 assessed: 03/10/23 Source: Developed by Drs. Leroy Valentine, Teresa Mcnamara, Balta Francois and colleagues, with an educational yaniv from [employer]. Review of Systems Const Denies chills, Denies headache(s) and Denies weight loss ENT Denies headache(s) Card Denies chest pain, Denies syncope, Denies irregular heart rhythm and Denies dyspnea Resp Denies chest congestion, Denies cough and Denies dyspnea GI Denies abdominal pain, Denies change in stool character, Denies nausea and Denies vomiting Musc Denies deformity and Denies joint swelling Neuro Denies syncope and Denies headache(s) Physical exam (Primary Care) Vital Signs: Last Vital Signs Pulse 80 09/08/23 09:27 BP 130/72 09/08/23 09:27 Pulse Ox 98 09/08/23 09:27 Oxygen Delivery Method Room Air 09/08/23 09:27 BMI result Body Mass Index 33.1 Tobacco/Smoking Status: Tobacco use Status Tobacco use date assessed 03/10/23 09/08/23 09:28 Patient Tobacco Use Status Former Tobacco user 09/08/23 09:28 Tobacco use type Cigarette 09/08/23 09:28 e-Cigarette/Vaping Use Never Used 09/08/23 09:28 Thrive Assessment: Date of Thrive Assessment Date Thrive assessed 03/10/23 09/08/23 09:28 Const General: cooperative, comfortable, no acute distress and alert Neck Neck: Yes no lymphadenopathy Thyroid: Thyroid normal Resp Effort & Inspection: normal respiratory effort Auscultation: clear to auscultation bilaterally Percussion: percussion normal Cardio Jugular venous distension: no JVD Palpation: normal PMI Rate: regular rate Rhythm: regular rhythm Heart sounds: S1 normal heart sound present and S2 normal heart sound present GI Inspection: Yes normal to inspection Palpation (GI): No hepatosplenomegaly present Skin General skin exam: no rashes or lesions noted Extrem General: Yes no clubbing, cyanosis or edema Assessment and Plan Assessment & Plan (1) Hypertension: Code(s): I10 - Essential (primary) hypertension Qualifiers: Hypertension type: unspecified Qualified Code(s): I10 - Essential (primary) hypertension Plan: stable; same rx Orders: Orders Comprehensive [place]. Panel Fast Today Z13.9 - Encounter for screening, unspecified Prostate Specific Antigen Scr Today Z00.00 - Encounter for general adult medical examination without abnormal findings Lipid Panel Today Z13.220 - Encounter for screening for lipoid disorders Thyroid Stimulating Hormone Today Z13.29 - Encounter for screening for other suspected endocrine disorder Complete Blood Count Auto Diff Today Z13.0 - Encounter for screening for diseases of the blood and blood-forming organs and certain disorders involving the immune mechanism Coding Level of Care Code Est Pt Level 3 (54643) Diagnoses Hypertension, unspecified type I10 Hypertension type: unspecified
[2023-09-08 09:27] VITALS: BP 130/72; PULSE 80; O2SAT 98; BMI 33.1
== END 2023-09-08 09:53 | disposition home or self-care (01) ==
PROVIDERS: PCP Internal Medicine; Visit Provider Internal Medicine
DX: I10 Essential (primary) hypertension (principal)
CPT/HCPCS: 99213

== ENCOUNTER 2023-09-22 06:04 | Outpatient (REF) | payer MEDICARE, MEDICAID, SELFPAY ==
[2023-09-22 10:20] LABS: MANUAL DIFF FLAG NO
[2023-09-22 10:36] LABS: Basophils Absolute Auto 0.1 X10*3/uL (0.0-0.2); Basophils Percent Auto 0.8 % (0-2); Eosinophils Absolute Auto 0.2 X10*3/uL (0.0-0.4); Eosinophils Percent Auto 2.6 % (0-4); Hematocrit 45.5 % (42.0-52.0); Hemoglobin 15.4 g/dl (14.0-18.0); Imm Gran Abs Auto 0.02 X10*3/uL (0.00-0.03); Imm Gran Pct Auto 0.3 % (0.0-0.4); Lymphocytes Absolute Auto 1.9 X10*3/uL (1.2-4.9); Lymphocytes Percent Auto 31.2 % (20-40); Mean Corpuscular HGB Conc 33.8 g/dl (31.0-36.0); Mean Corpuscular Hemoglobin 30.8 pg (27.0-33.0); Mean Platelet Volume 10.5 fL (9.4-12.4); Monocytes Absolute Auto 0.6 X10*3/uL (0.1-1.2); Monocytes Percent Auto 9.7 % (2-11); Neutrophils Absolute Auto 3.4 x10*3/uL (2.0-8.3); Neutrophils Percent Auto 55.4 % (45-73); Platelet Count 218 X10*3/uL (160-400); Red Cell Distribution Width 13.5 % (11.0-16.0); White Blood Count 6.1 X10*3/uL (4.8-10.8)
[2023-09-22 11:03] LABS: Alanine Aminotransferase 67 U/L (0-40); Albumin Level 4.4 g/dL (3.5-5.0); Alkaline Phosphatase 40 U/L (39-117); Anion Gap 11 (12-20); Aspartate Amino Transferase 39 U/L (5-37); Bilirubin Total 0.5 mg/dL (0.0-1.0); Blood Urea Nitrogen 17 mg/dL (9-16); Calcium 9.1 mg/dL (8.4-10.2); Carbon Dioxide 28 mmol/L (22-29); Chloride 104 mmol/L (96-108); Cholesterol 136 mg/dL (<200); Estimated Glomerular Filt Rate 42; Glucose Fasting 118 mg/dL (60-99); HDL Cholesterol 33 mg/dL (>40); LDL Cholesterol Calculated 65 mg/dL (<100); Potassium 4.1 mmol/L (3.3-5.1); Sodium 139 mmol/L (135-145); Total Protein 7.2 g/dL (6.5-8.0); Triglycerides 193 mg/dL (<150)
[2023-09-22 11:05] LABS: Prostate Specific Antigen Scr 0.69 ng/mL (<0.05-4.0); Thyroid Stimulating Hormone 1.93 uIU/mL (0.32-4.0)
== END 2023-09-22 06:05 | disposition home or self-care (01) ==
LOC: HO.HMGCLDS 06:04
PROVIDERS: PCP Internal Medicine; Visit Provider Internal Medicine
DX: Z00.00 Encounter for general adult medical examination without abnormal findings (principal); Z13.0 Encounter for screening for diseases of the blood and blood-forming organs and certain disorders involving the immune mechanism; Z13.220 Encounter for screening for lipoid disorders; Z13.9 Encounter for screening, unspecified; Z13.29 Encounter for screening for other suspected endocrine disorder; Z12.5 Encounter for screening for malignant neoplasm of prostate
CPT/HCPCS: 36415; 80053; 80061; 84153; 84443; 85025

== ENCOUNTER 2023-11-03 09:03 | Outpatient (AMB) | payer MEDICARE, MEDICAID, SELFPAY ==
[2023-11-03 09:14] VITALS: PULSE 72; O2SAT 97; BMI 33.4
--- NOTE | 2023-11-03 09:14 | MHC.OFFVIS ---
Vital Signs 11/03/23 09:14 Height 5 ft 8 in Weight 220 lb BMI 33.4 Pulse 72 Pulse Source Doppler Pulse Oximetry (%) 97 Oxygen Delivery Method Room Air Intake Visit Reasons: COPD Allergies meloxicam Adverse Reaction (Severe, Verified 11/03/23 09:17) Chest Pain rosuvastatin Adverse Reaction (Severe, Verified 11/03/23 09:17) Muscle cramps baclofen Adverse Reaction (Unknown, Verified 11/03/23 09:17) chest pain meperidine [From Demerol] Adverse Reaction (Verified 11/03/23 09:17) Nausea simvastatin [From Zocor] Adverse Reaction (Verified 11/03/23 09:17) Muscle Pain HPI HPI COPD: Details: 67-year-old gentleman, former 30+ pack-year smoker, quit 2016 previously followed for underlying asthma/COPD overlap syndrome, and environmental allergies. He has been tried on Symbicort, Stiolto albuterol MDI with essentially no symptomatic response to inhaled bronchodilators. At the last office visit he was started on Xolair and reports improved symptom control. He does continue to complain of dyspnea on exertion, particularly when walking up stairs. Today patient had in office supplemental oxygen evaluation/6 minute walk test that shows normal oximetry with exertion. [facility] Medical History Obesity Hypothyroidism Screening for prostate cancer Screening for diabetes mellitus Back pain Elevated cholesterol GERD (gastroesophageal reflux disease) Cook esophagus Hypertension CESPEDES (dyspnea on exertion) Surgical History Hx of cardiac catheterization History of esophagogastroduodenoscopy (EGD) Hx of colonoscopy Family History Father CVD (cardiovascular disease) Diabetes Myocardial infarct Mother Breast cancer Sister Colon cancer Son Substance use disorder Social History Housing: House Are you a primary home care provider to a significant other at home: No Do you presently have visiting nurse or other home services: No Alcohol intake: former Patient Tobacco Use Status: Former Tobacco user Tobacco use type: Cigarette Years Smoked: 30 +/- e-Cigarette/Vaping Use: Never Used Second Hand Smoke Exposure: No service: No Current occupational status: disabled Cognitive needs: No Hearing needs: No Vision needs: Yes (glasses) Review of Systems Const Denies daytime sleepiness, Denies excessive sweating, Denies fatigue, Denies fever(s), Denies lethargy, Denies malaise, Denies night sweats, Denies snoring and Denies weight loss Eyes Denies blurry vision and Denies itchy eyes ENT Denies nasal congestion, Denies post nasal drip, Denies sinus pain, Denies sinus pressure and Denies other ( Thrush) Card Denies chest pain, Denies pedal edema, Denies dyspnea, Reports dyspnea on exertion, Denies orthopnea and Denies paroxysmal nocturnal dyspnea Resp Denies cough, Denies hemoptysis, Denies excessive phlegm production, Denies dyspnea, Reports dyspnea on exertion, Denies snoring and Denies wheezing GI Denies abdominal pain and Denies heartburn Musc Denies myalgias, Denies arthralgias and Denies joint swelling Skin/Breast Denies rash Neuro Denies memory loss and Denies seizure-like activity Psych Denies abnormal sleep pattern, Denies anxiety and Denies memory loss Endo Denies excessive sweating, Denies fatigue and Denies heat intolerance Matty/Lymph Denies easy bruising Aller/Immun Denies itchy eyes, Denies seasonal rhinorrhea and Denies wheezing Physical Exam Vital Signs: Last Vital Signs Pulse 72 11/03/23 09:14 Pulse Ox 97 11/03/23 09:14 Oxygen Delivery Method Room Air 11/03/23 09:14 BMI result Body Mass Index 33.4 Const General: no acute distress and alert Nutritional Appearance: obese Orientation/consciousness: Other orientation findings ( oriented) HEENT Head: Yes atraumatic Eyes General: appearance normal, both eyes and all related structures Sclerae: sclerae normal EOM: EOMs intact bilaterally Neck Neck: Yes supple Lymphatic: no lymphadenopathy noted Resp Effort & Inspection: normal respiratory effort and no use of accessory muscles Auscultation: clear to auscultation bilaterally Cardio Rate: regular rate Rhythm: regular rhythm Heart sounds: no gallops, no murmurs and no rubs Skin General skin exam: other ( warm) Extrem General: No clubbing, No cyanosis and No edema Assessment & Plan Assessment & Plan (1) Severe persistent asthma: Code(s): J45.50 - Severe persistent asthma, uncomplicated Category: Medical Plan: Improving control on Xolair and albuterol MDI. Continue current regimen. (2) Environmental allergies: Code(s): Z91.09 - Other allergy status, other than to drugs and biological substances Category: Medical Plan: Improving control on Xolair. Continue current regimen. (3) Asthma-COPD overlap syndrome: Code(s): J44.9 - Chronic obstructive pulmonary disease, unspecified Category: Medical Plan: No response to long-acting bronchodilators. Continue albuterol MDI. (4) CESPEDES (dyspnea on exertion): Code(s): R06.00 - Dyspnea, unspecified Category: Medical Plan: So far unrevealing pulmonary and cardiac workup. 6 minute walk test/supplemental oxygen evaluation shows no need for supplemental oxygen. Will obtain cardiopulmonary exercise test. Orders: Orders CA cardiopulmonary stress test Today R06.00 - Dyspnea, unspecified Coding Level of Care Code Est Pt Level 5 (68052) Diagnoses Severe persistent asthma J45.50 Environmental allergies Z91.09 Asthma-COPD overlap syndrome J44.9 CESPEDES (dyspnea on exertion) R06.00
[2023-11-03 10:06] VITALS: PULSE 71; O2SAT 96
== END 2023-11-03 09:51 | disposition home or self-care (01) ==
PROVIDERS: PCP Internal Medicine; Visit Provider Internal Medicine Pulmonary Disease
DX: J45.50 Severe persistent asthma, uncomplicated (principal)
CPT/HCPCS: 94618; 99214

== ENCOUNTER → 2023-11-03 09:03 | Outpatient (BNVA) | payer MEDICARE, MEDICAID, SELFPAY | PROVIDERS: PCP Internal Medicine; Visit Provider Internal Medicine Pulmonary Disease | DX: J45.50 Severe persistent asthma, uncomplicated (principal); J44.9 Chronic obstructive pulmonary disease, unspecified; R06.00 Dyspnea, unspecified; Z91.09 Other allergy status, other than to drugs and biological substances | CPT/HCPCS: 94618; 99212 ==

== ENCOUNTER 2023-12-10 08:39 | Outpatient (AMB) | payer MEDICARE, MEDICAID, SELFPAY ==
--- NOTE | 2023-12-10 08:45 | MHC.PC.OV ---
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 Accompanied by: Self / Same As Patient Allergies meloxicam Adverse Reaction (Severe, Verified 12/10/23 08:46) Chest Pain rosuvastatin Adverse Reaction (Severe, Verified 12/10/23 08:46) Muscle cramps baclofen Adverse Reaction (Unknown, Verified 12/10/23 08:46) chest pain meperidine [From Demerol] Adverse Reaction (Verified 12/10/23 08:46) Nausea simvastatin [From Zocor] Adverse Reaction (Verified 12/10/23 08:46) Muscle Pain Medication List - Last Reconciled 12/10/23 by Kyree Valentino MD albuterol sulfate 90 mcg/actuation 2 puffs inhalation Q4-6H PRN aspirin (Adult Aspirin Regimen) 81 mg PO DAILY baclofen 10 mg PO BID chlorhexidine gluconate 0.12% 15 mL buccal BID enalapril maleate 20 mg PO DAILY esomeprazole magnesium 20 mg PO DAILY evolocumab (Repatha SureClick) 140 mg subcut Q2W gabapentin 300 mg PO TID hydrochlorothiazide 12.5 mg PO DAILY levothyroxine 75 mcg PO DAILY lorazepam 1 mg PO Q6H PRN Stiolto Respimat 2.5-2.5 mcg/actuation (tiotropium-olodaterol) 2 puffs inhalation DAILY 30 days NS triamcinolone acetonide 0.5% 1 appl topical TID Tobacco use date assessed: 03/10/23 Fall risk assessment: No Falls in past year Last assessed Fall Risk: 12/10/23 Dental Screening Dental Screen Date: 03/10/23 HPI follow up and review results of recent tests HPI Details HTN on Rx; doing well and compliant [facility] Medical History Obesity Hypothyroidism Screening for prostate cancer Screening for diabetes mellitus Back pain Elevated cholesterol GERD (gastroesophageal reflux disease) Cook esophagus Hypertension CESPEDES (dyspnea on exertion) Surgical History Hx of cardiac catheterization History of esophagogastroduodenoscopy (EGD) Hx of colonoscopy Family History Father CVD (cardiovascular disease) Diabetes Myocardial infarct Mother Breast cancer Sister Colon cancer Son Substance use disorder Social History Housing: House Are you a primary critical care physician assistant to a significant other at home: No Do you presently have visiting nurse or other home services: No Alcohol intake: former Patient Tobacco Use Status: Former Tobacco user Tobacco use type: Cigarette Years Smoked: 30 +/- e-Cigarette/Vaping Use: Never Used Second Hand Smoke Exposure: No service: No Current occupational status: disabled Cognitive needs: No Hearing needs: No Vision needs: Yes (glasses) Questionnaire Thrive Questionnaire Date Thrive assessed: 03/10/23 OTILIA-7 AMB Questionnaire OTILIA-7 Date OTILIA - 7 assessed: 03/10/23 Source: Developed by Drs. Leroy Valentine, Teresa Mcnamara, Balta Francois and colleagues, with an educational yaniv from [employer]. Review of Systems Const Denies chills, Denies headache(s) and Denies weight loss ENT Denies headache(s) Card Denies chest pain, Denies syncope, Denies irregular heart rhythm and Denies dyspnea Resp Denies chest congestion, Denies cough and Denies dyspnea GI Denies abdominal pain, Denies change in stool character, Denies nausea and Denies vomiting Musc Denies deformity and Denies joint swelling Neuro Denies syncope and Denies headache(s) Physical exam (Primary Care) Vital Signs: Last Vital Signs Pulse 72 12/10/23 08:46 BP 144/80 H 12/10/23 08:46 Pulse Ox 97 12/10/23 08:46 Oxygen Delivery Method Room Air 12/10/23 08:46 BMI result Body Mass Index 33.1 Tobacco/Smoking Status: Tobacco use Status Tobacco use date assessed 03/10/23 12/10/23 08:52 Patient Tobacco Use Status Former Tobacco user 12/10/23 08:52 Tobacco use type Cigarette 12/10/23 08:52 e-Cigarette/Vaping Use Never Used 12/10/23 08:52 Thrive Assessment: Date of Thrive Assessment Date Thrive assessed 03/10/23 12/10/23 08:52 Const General: cooperative, comfortable, no acute distress and alert Neck Neck: Yes no lymphadenopathy Thyroid: Thyroid normal Resp Effort & Inspection: normal respiratory effort Auscultation: clear to auscultation bilaterally Percussion: percussion normal Cardio Jugular venous distension: no JVD Palpation: normal PMI Rate: regular rate Rhythm: regular rhythm Heart sounds: S1 normal heart sound present and S2 normal heart sound present GI Inspection: Yes normal to inspection Palpation (GI): No hepatosplenomegaly present Skin General skin exam: no rashes or lesions noted Extrem General: Yes no clubbing, cyanosis or edema Coding Level of Care Code Est Pt Level 3 (12506) Diagnoses Hypertension, unspecified type I10 Hypertension type: unspecified Assessment & Plan Assessment & Plan (1) Hypertension: Code(s): I10 - Essential (primary) hypertension Category: Medical Qualifiers: Hypertension type: unspecified Qualified Code(s): I10 - Essential (primary) hypertension Plan: stable; same rx Orders: Orders Thyroid Stimulating Hormone Today Z13.29 - Encounter for screening for other suspected endocrine disorder Lipid Panel Today Z13.220 - Encounter for screening for lipoid disorders Medications: Refilled lorazepam 1 mg PO Q6H PRN 120 tabs 0RF anxiety
[2023-12-10 08:46] VITALS: BP 144/80; PULSE 72; O2SAT 97; BMI 33.1
== END 2023-12-10 09:15 | disposition home or self-care (01) ==
LOC: HO.HMCH 08:40
PROVIDERS: PCP Internal Medicine; Visit Provider Internal Medicine
DX: I10 Essential (primary) hypertension (principal)

== ENCOUNTER → 2023-12-10 08:39 | Outpatient (BNVA) | payer MEDICARE, MEDICAID, SELFPAY | PROVIDERS: PCP Internal Medicine; Visit Provider Internal Medicine | DX: I10 Essential (primary) hypertension (principal) | CPT/HCPCS: 99212 ==

== ENCOUNTER 2023-12-14 09:12 | Outpatient (AMB) | payer MEDICARE, MEDICAID, SELFPAY ==
[2023-12-14 09:20] VITALS: BP 119/62; PULSE 77; O2SAT 96; BMI 33.3
--- NOTE | 2023-12-14 09:20 | A.OFFVIS_ITS ---
Vital Signs 12/14/23 09:20 Height 5 ft 8 in Weight 219 lb BMI 33.3 BP 119/62 Blood Pressure Location Rt brachial Position Sitting Pulse 77 Pulse Source Doppler Pulse Oximetry (%) 96 Oxygen Delivery Method Room Air Intake Visit Reasons: COPD Allergies meloxicam Adverse Reaction (Severe, Verified 12/14/23 09:24) Chest Pain rosuvastatin Adverse Reaction (Severe, Verified 12/14/23 09:24) Muscle cramps baclofen Adverse Reaction (Unknown, Verified 12/14/23 09:24) chest pain meperidine [From Demerol] Adverse Reaction (Verified 12/14/23 09:24) Nausea simvastatin [From Zocor] Adverse Reaction (Verified 12/14/23 09:24) Muscle Pain HPI HPI COPD: Details: 67-year-old gentleman, former 30+ pack-year smoker, quit 2016 previously followed for underlying asthma/COPD overlap syndrome, and environmental allergies. He has been tried on Symbicort, Stiolto albuterol MDI with essentially no symptomatic response to inhaled bronchodilators. He continued on Xolair, though he does not think he derive significant symptomatic benefit. Patient did have cardiopulmonary exercise testing that showed no pulmonary or cardiac limitation and he was able to achieve his maximum exercise capacity. [facility] Medical History Obesity Hypothyroidism Screening for prostate cancer Screening for diabetes mellitus Back pain Elevated cholesterol GERD (gastroesophageal reflux disease) Cook esophagus Hypertension CESPEDES (dyspnea on exertion) Surgical History Hx of cardiac catheterization History of esophagogastroduodenoscopy (EGD) Hx of colonoscopy Family History Father CVD (cardiovascular disease) Diabetes Myocardial infarct Mother Breast cancer Sister Colon cancer Son Substance use disorder Social History Housing: House Are you a primary field care coordinator to a significant other at home: No Do you presently have visiting nurse or other home services: No Alcohol intake: former Patient Tobacco Use Status: Former Tobacco user Tobacco use type: Cigarette Years Smoked: 30 +/- e-Cigarette/Vaping Use: Never Used Second Hand Smoke Exposure: No service: No Current occupational status: disabled Cognitive needs: No Hearing needs: No Vision needs: Yes (glasses) Review of Systems Const Denies daytime sleepiness, Denies excessive sweating, Denies fatigue, Denies fever(s), Denies lethargy, Denies malaise, Denies night sweats, Denies snoring and Denies weight loss Eyes Denies blurry vision and Denies itchy eyes ENT Denies nasal congestion, Denies post nasal drip, Denies sinus pain, Denies sinus pressure and Denies other ( Thrush) Card Denies chest pain, Denies pedal edema, Denies dyspnea, Denies orthopnea and Denies paroxysmal nocturnal dyspnea Resp Denies cough, Denies hemoptysis, Denies excessive phlegm production, Denies dyspnea, Denies snoring and Denies wheezing GI Denies abdominal pain and Denies heartburn Musc Denies myalgias, Denies arthralgias and Denies joint swelling Skin/Breast Denies rash Neuro Denies memory loss and Denies seizure-like activity Psych Denies abnormal sleep pattern, Denies anxiety and Denies memory loss Endo Denies excessive sweating, Denies fatigue and Denies heat intolerance Matty/Lymph Denies easy bruising Aller/Immun Denies itchy eyes, Denies seasonal rhinorrhea and Denies wheezing Physical Exam Vital Signs: Last Vital Signs Pulse 77 12/14/23 09:20 BP 119/62 12/14/23 09:20 Pulse Ox 96 12/14/23 09:20 Oxygen Delivery Method Room Air 12/14/23 09:20 BMI result Body Mass Index 33.3 Const General: no acute distress and alert Nutritional Appearance: not obese Orientation/consciousness: Other orientation findings ( oriented) HEENT Head: Yes atraumatic Eyes General: appearance normal, both eyes and all related structures Sclerae: sclerae normal EOM: EOMs intact bilaterally Neck Neck: Yes supple Lymphatic: no lymphadenopathy noted Resp Effort & Inspection: normal respiratory effort and no use of accessory muscles Auscultation: clear to auscultation bilaterally Cardio Rate: regular rate Rhythm: regular rhythm Heart sounds: no gallops, no murmurs and no rubs Skin General skin exam: other ( warm) Extrem General: No clubbing, No cyanosis and No edema Assessment & Plan Assessment & Plan (1) Environmental allergies: Code(s): Z91.09 - Other allergy status, other than to drugs and biological substances Category: Medical Plan: Poor response to Xolair, patient wants to hold Xolair injections at this time. (2) CESPEDES (dyspnea on exertion): Code(s): R06.00 - Dyspnea, unspecified Category: Medical Plan: Appears to be related to deconditioning. His cardiopulmonary exercise test reviewed and is normal. Patient has been advised on gradated exercise program. Coding Level of Care Code Est Pt Level 4 (14598) Complex EM visit Add On G2211 Diagnoses Environmental allergies Z91.09 CESPEDES (dyspnea on exertion) R06.00
== END 2023-12-14 09:45 | disposition home or self-care (01) ==
LOC: HO.HPS 09:13
PROVIDERS: PCP Internal Medicine; Visit Provider Internal Medicine Pulmonary Disease
DX: Z91.09 Other allergy status, other than to drugs and biological substances (principal); R06.00 Dyspnea, unspecified
CPT/HCPCS: 99214; G2211

== ENCOUNTER → 2023-12-14 09:12 | Outpatient (BNVA) | payer MEDICARE, MEDICAID, SELFPAY | PROVIDERS: PCP Internal Medicine; Visit Provider Internal Medicine Pulmonary Disease | DX: J44.9 Chronic obstructive pulmonary disease, unspecified (principal); R06.00 Dyspnea, unspecified; Z91.09 Other allergy status, other than to drugs and biological substances; Z87.891 Personal history of nicotine dependence | CPT/HCPCS: 99212 ==

== ENCOUNTER 2024-01-06 09:13 | Outpatient (AMB) | payer MEDICARE, MEDICAID, SELFPAY ==
[2024-01-06 09:40] VITALS: BP 110/62; PULSE 75; BMI 34.0
--- NOTE | 2024-01-06 09:40 | MHC.OFFVIS ---
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: No Accompanied by: Self / Same As Patient Allergies meloxicam Adverse Reaction (Severe, Verified 12/14/23 09:24) Chest Pain rosuvastatin Adverse Reaction (Severe, Verified 12/14/23 09:24) Muscle cramps baclofen Adverse Reaction (Unknown, Verified 12/14/23 09:24) chest pain meperidine [From Demerol] Adverse Reaction (Verified 12/14/23 09:24) Nausea simvastatin [From Zocor] Adverse Reaction (Verified 12/14/23 09:24) Muscle Pain Medication List - Last Reconciled 01/06/24 by Conor Garcia MD albuterol sulfate 90 mcg/actuation 2 puffs inhalation Q4-6H PRN aspirin (Adult Aspirin Regimen) 81 mg PO DAILY baclofen 10 mg PO BID chlorhexidine gluconate 0.12% 15 mL buccal BID enalapril maleate 20 mg PO DAILY esomeprazole magnesium 20 mg PO DAILY gabapentin 300 mg PO TID hydrochlorothiazide 12.5 mg PO DAILY levothyroxine 75 mcg PO DAILY lorazepam 1 mg PO Q6H PRN triamcinolone acetonide 0.5% 1 appl topical TID HPI Comments Details: 68-year-old gentleman here for follow-up. He had dyspnea on exertion and exertional chest tightness. He had echocardiography and stress test which did not show any significant abnormality. Given worsening chest tightness he was taken for cardiac catheterization. He was found to have no significant coronary artery disease. His filling pressures at rest were normal on right heart catheterization. He has dyspnea on exertion due to deconditioning and weight gain. He had carotid bruit and underwent carotid ultrasound which showed moderate right-sided carotid stenosis and mild left-sided carotid stenosis. He was on baby aspirin. He has statin intolerance and had tried different statins in the past. We again tried Crestor at 5 mg every other day but he developed significant muscle aches and could not tolerate Crestor. We were able to start him on Zetia but despite using Zetia his LDL cholesterol is 135. Given carotid stenosis is target is less than 70. 723: He returns for follow-up. He had blood workup in July 2022. Total cholesterol 147, triglyceride 159, LDL 78 and HDL 38. He is currently taking Repatha 140 mg every 2 weeks. Is saying when he uses Repatha the he gets itching at the site. No rash on the body or breathing issues or lip swelling. This is not a true allergic reaction. He continues to get shortness of breath with exertion specially going up hill. He is saying he does not walk and does not do physical exercise in his day-to-day life. He has no chest discomfort. Blood pressure control is good. 01/06/2024: He is here for follow-up. He is saying he is unable to afford PCSK9 because insurance is not covering anymore since event to Medicare part D. He has familial hyperlipidemia and is statin intolerant. He also has carotid stenosis by ultrasound. He is high-risk for future stroke and cardiovascular events and we will look into prior authorization again because this is on a valid option which has brought his LDL cholesterol from I90s to 60s. [facility] Medical History Obesity Hypothyroidism Screening for prostate cancer Screening for diabetes mellitus Back pain Elevated cholesterol GERD (gastroesophageal reflux disease) Cook esophagus Hypertension CESPEDES (dyspnea on exertion) Surgical History Hx of cardiac catheterization History of esophagogastroduodenoscopy (EGD) Hx of colonoscopy Family History Father CVD (cardiovascular disease) Diabetes Myocardial infarct Mother Breast cancer Sister Colon cancer Son Substance use disorder Social History Housing: House Are you a primary complex care nurse practitioner to a significant other at home: No Do you presently have visiting nurse or other home services: No Alcohol intake: former Patient Tobacco Use Status: Former Tobacco user Tobacco use type: Cigarette Years Smoked: 30 +/- e-Cigarette/Vaping Use: Never Used Second Hand Smoke Exposure: No service: No Current occupational status: disabled Cognitive needs: No Hearing needs: No Vision needs: Yes (glasses) Review of Systems Const Denies chills, Denies fatigue, Denies fever(s), Denies frequent falls, Denies weakness, Denies weight gain and Denies weight loss ENT Denies dizziness Card Denies chest pain, Denies leg edema, Denies lightheadedness, Denies palpitations, Denies dyspnea and Denies dyspnea on exertion Resp Denies cough, Denies dyspnea and Denies dyspnea on exertion GI Denies hematochezia Musc Denies abnormal gait, Denies muscle weakness, Denies numbness, Denies radiating pain into limb and Denies tingling Neuro Denies abnormal gait, Denies dizziness, Denies frequent falls, Denies numbness, Denies tingling and Denies weakness Endo Denies fatigue and Denies palpitations Physical Exam Vital Signs: Last Vital Signs Pulse 75 01/06/24 09:40 BP 110/62 01/06/24 09:40 BMI result Body Mass Index 34.0 GENERAL APPEARANCE: in no acute distress. NECK/THYROID: Left carotid bruit, no jugular venous distention. SKIN: no suspicious lesions, warm and dry. HEART: no murmurs, regular rate and rhythm, S1, S2 normal. LUNGS: clear to auscultation bilaterally. ABDOMEN: normal, bowel sounds present, soft, nontender, nondistended. EXTREMITIES: no clubbing, cyanosis, or edema. PERIPHERAL PULSES: equal. NEUROLOGIC: nonfocal, alert and oriented. PSYCH: mood/affect full range. Office Procedures EKG Details: Sinus rhythm 75 beats per minute, normal axis, nonspecific T-wave changes, QTC 431 milliseconds. [id number], Complete Assessment & Plan Assessment & Plan (1) Hyperlipidemia: Code(s): E78.5 - Hyperlipidemia, unspecified Category: Medical (2) Carotid stenosis: Code(s): I65.29 - Occlusion and stenosis of unspecified carotid artery Category: Medical (3) CESPEDES (dyspnea on exertion): Code(s): R06.00 - Dyspnea, unspecified Category: Medical (4) Hypertension: Code(s): I10 - Essential (primary) hypertension Category: Medical Qualifiers: Hypertension type: unspecified Qualified Code(s): I10 - Essential (primary) hypertension Plan 68-year-old gentleman is here for follow-up. He has background history of hypertension, hyperlipidemia and carotid stenosis. He has dyspnea on exertion which is due to deconditioning and his weight. The symptoms are fairly stable. He previously had left and right heart catheterization which did not show any coronary disease and his filling pressures at rest were normal. I explained to him that he should increase his physical activity. He will be following with pulmonology. Blood pressure control is good. He has been unable to take PCSK9 inhibitor because his insurance is not covering PCSK9 inhibitor anymore. He has familial hyperlipidemia and he is intolerant of statins. Two different statins were tried and he could not tolerate them. He has carotid stenosis and is already developing vascular disease due to elevated cholesterol. We will request prior authorization for PCSK9 inhibitors again. Follow-up in 6 months. Thank you for allowing me to participate in the care of your patient. Please feel free to contact me if you have any questions. Medications: New evolocumab 140 mg subcut Q2W 2 mL 4RF Coding Level of Care Code Est Pt Level 4 (27229) Diagnoses Hyperlipidemia E78.5 Carotid stenosis I65.29 CESPEDES (dyspnea on exertion) R06.00 Hypertension, unspecified type I10 Hypertension type: unspecified CPT Codes EKG - CPT: [id number], Complete ([id number])
== END 2024-01-06 10:12 | disposition home or self-care (01) ==
PROVIDERS: PCP Internal Medicine; Visit Provider Internal Medicine Cardiovascular Disease
DX: E78.5 Hyperlipidemia, unspecified (principal); I65.29 Occlusion and stenosis of unspecified carotid artery; R06.00 Dyspnea, unspecified; I10 Essential (primary) hypertension
CPT/HCPCS: 93010; 99214

== ENCOUNTER → 2024-01-06 09:13 | Outpatient (BNVA) | payer MEDICARE, MEDICAID, SELFPAY | PROVIDERS: PCP Internal Medicine; Visit Provider Internal Medicine Cardiovascular Disease | DX: E78.5 Hyperlipidemia, unspecified (principal); I65.29 Occlusion and stenosis of unspecified carotid artery; I10 Essential (primary) hypertension; R06.00 Dyspnea, unspecified | CPT/HCPCS: 93005; 99212 ==

== ENCOUNTER 2024-01-18 13:53 | Emergency (ER) | payer MEDICARE, MEDICAID, SELFPAY ==
--- NOTE | ~2024-01-18 | XR_ITS ---
EXAMINATION: XR HAND/WRIST, RIGHT CLINICAL INFORMATION: RIght thumb pain COMPARISON: None available. TECHNIQUE: PA, lateral, and oblique views of the right hand and wrist. FINDINGS: No definite fractures, dislocations, or focal bony abnormalities. 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 Mild to moderate arthritis in the first and second MCP joints. Carpal bones intact and otherwise normally aligned. No soft tissue abnormalities. XR/XR hand wrist RT IMPRESSION: 1. No acute findings of the hand and wrist. 2. Arthritic changes most prominent first CMC joint. Electronically signed by: Maxi Simons MD 01/18/2024 04:55 PM [facility]
[2024-01-18 14:08] VITALS: BP 193/93; PULSE 75; RESP 20; TEMP 37; O2SAT 100; BMI 33.5
--- NOTE | 2024-01-18 14:16 | ED.GENADULT ---
HPI - General Adult General Chief complaint: Extremity Injury, Upper Stated complaint: R thumb pain Time Seen by Provider: 01/18/24 16:39 Source: patient Mode of arrival: ambulatory Limitations: no limitations History of Present Illness ED Provider: MARILU LAMAR PA-C HPI narrative: 68 year old male with pmhx significant for HTN, HDL, GERD, hypothyroidism presents to the ED today for evaluation of right thumb pain x4 months. He reports sustaining a laceration to his right thumb while cutting a piece of chicken with a knife 4 months ago. He was evaluated at for this where they dressed the laceration and had him return a few days later to remove the dressing. No imaging was performed. He admits that when the nurse attempted to remove the dressing with sicssors, his thumb became further irritated. Since this time he has had intermittent pain to the interphalangeal joint of the right thumb. He states that this worsened approximately 1 week ago. He reports an intermitent clicking sensation when he extends the joint. Symptoms are worse on waking in the morning and seem to improve throughout the day. He is not taking any OTC pain medications for this. He also admits to an injury to the CMC joint years ago after he fell out of his car. He did not have imaging of the hand at that time. Admits to pain around this area since. He tells me he has arthritis however this feels different. Denies numbness/tingling weakness, fever, chills, rashes. Related Data Home Medications ?Medication ?Instructions ?Recorded ?Confirmed esomeprazole magnesium 20 mg 20 mg PO DAILY 12/26/20 01/06/24 capsule,delayed release baclofen 10 mg tablet 10 mg PO BID 09/04/22 01/06/24 Previous Rx's ?Medication ?Instructions ?Recorded albuterol sulfate 90 mcg/actuation 2 puff inhalation Q4-6H PRN 03/06/21 aerosol inhaler Wheezing #1 ea aspirin 81 mg tablet,delayed 81 mg PO DAILY #90 tabs 11/20/21 release (Adult Aspirin Regimen) triamcinolone acetonide 0.5 % 1 appl topical TID #15 grams 06/04/22 topical cream levothyroxine 75 mcg tablet 75 mcg PO DAILY #90 tabs 01/08/23 chlorhexidine gluconate 0.12 % 15 ml buccal BID #1,893 mL 03/10/23 mouthwash enalapril maleate 20 mg tablet 20 mg PO DAILY #90 tabs 03/29/23 hydrochlorothiazide 12.5 mg tablet 12.5 mg PO DAILY #90 tabs 05/28/23 gabapentin 300 mg capsule 300 mg PO TID #90 caps 11/04/23 lorazepam 1 mg tablet 1 mg PO Q6H PRN anxiety #120 tabs 12/10/23 evolocumab 140 mg/mL subcutaneous 140 mg subcut Q2W #2 mL 01/06/24 pen injector prednisone 20 mg tablet 40 mg (2 x 20 mg) PO DAILY 5 days 01/18/24 #10 tabs Allergies Allergy/AdvReac Type Severity Reaction Status Date / Time meloxicam AdvReac Severe Chest Pain Verified 01/18/24 14:14 rosuvastatin AdvReac Severe Muscle Verified 01/18/24 14:14 cramps baclofen AdvReac Unknown chest pain Verified 01/18/24 14:14 meperidine [From Demerol] AdvReac Nausea Verified 01/18/24 14:14 simvastatin [From Zocor] AdvReac Muscle Pain Verified 01/18/24 14:14 Review of Systems Review of Systems: Yes all other systems are reviewed and are negative PMFSH Past Medical History Attestation statement: The following information was validated with the patient. Source: old records reviewed and nursing notes reviewed Medical History Obesity Hypothyroidism Screening for prostate cancer Screening for diabetes mellitus Back pain Elevated cholesterol GERD (gastroesophageal reflux disease) Cook esophagus Hypertension CESPEDES (dyspnea on exertion) Surgical History Hx of cardiac catheterization History of esophagogastroduodenoscopy (EGD) Hx of colonoscopy Family History Family History Father CVD (cardiovascular disease) Diabetes Myocardial infarct Mother Breast cancer Sister Colon cancer Son Substance use disorder Social History Social History Housing: House Are you a primary patient care assistant to a significant other at home: No Do you presently have visiting nurse or other home services: No Alcohol intake: former Patient Tobacco Use Status: Former Tobacco user Tobacco use type: Cigarette Years Smoked: 30 +/- e-Cigarette/Vaping Use: Never Used Second Hand Smoke Exposure: No Advance Directives: No Advance Directives Information Provided: No Do you have a plan to hurt others: No Plan service: No Current occupational status: disabled Cognitive needs: No Hearing needs: No Vision needs: Yes (glasses) Physical Exam ED Vital Signs: Vital Signs - 24 hr 01/18/24 14:08 01/18/24 16:53 01/18/24 17:37 Temperature 98.6 F 98.4 F 98.4 F Pulse Rate 75 63 63 Respiratory Rate 20 16 16 Blood Pressure 193/93 H 156/89 H 156/89 H Pulse Oximetry 100 98 98 Oxygen Delivery Method Room Air Room Air Room Air BMI result Body Mass Index 33.5 hypertensive, vitals otherwise wnl General: Well appearing, in no acute distress. Skin: Warm, dry, intact. No rashes or lesions. Head: Normocephalic, atraumatic. Cardiac: Chest wall symmetric. RRR. Lungs: Normal respiratory effort without accessory muscle use. CTA bilaterally Back: No midline spinous or paraspinal tenderness. No step off deformity. Ext: +no noted swelling to right 1st digit. no erythema, warmth or crepitus. Full ROM intact to MCP and DIP with minimal difficulty on extension of DIP. palpable click with extension of DIP. finger to thumb opposition intact. finger strength intact. 2+ radial/ ulnar pulse intact. sensation intact. cap refill <2 sec. Neuro: AOx3. Normal speech. Ambulating with steady gait. Psych: Appropriate mood and affect. Responds appropriately to questions. Course Course Course Narrative: RME: 68-year-old male presents to ED for right thumb pain. Patient states hearing clicking cracking and right thumb pain. Patient states no recent trauma, bluish black discoloration, hotness, coldness, redness. Patient had laceration of right thumb in October but it healed. Physical exam negative for signs of osteomyelitis, cellulitis, or tenosynovitis. Rest of extremity normal motor/neuro/vascular exam intact. An x-ray ordered. Patient hypertensive took his hypertensive meds today. Reevaluation(s) Reevaluation #1: XR showing arthritic changes most prominent at the 1st CMC joint. No obvious fracture. No soft tissue abnormalities. I do have concern for a chronic ligament or tendon injury within the thumb itself. At this point, it has been 4 months since the initial injury. Will place finger splint to limit further damage to the finger. I advised patient that he will need to follow-up with our hand surgeon, Dr. Price. He was provided with a referral and advised to call tomorrow morning to schedule an appointment. Prednisone sent to pharmacy. Advised to continue Tylenol and ibuprofen as needed for pain. Patient has remained stable throughout ED visit today. Discussed worrisome signs and symptoms and when to return to the ED. All questions answered at this time. Patient is agreeable with disposition and stable for discharge. Procedures Orthopedic Splinting/Casting Injury #1: Side: right Upper Extremity Injury Location: finger Upper Extremity Immobilizer: finger (other) Medical Decision Making Medical Decision Making MDM Narrative: 68 year old male with pmhx significant for HTN, HDL, GERD, hypothyroidism presents to the ED today for evaluation of right thumb pain x4 months. Patient is hypertensive, vitals are otherwise WNL. He is nontoxic-appearing and in no acute distress. Sitting comfortably on the exam bed. On exam of right hand, there is no noted swelling to right 1st digit. no erythema, warmth or crepitus. Full ROM intact to MCP and DIP with minimal difficulty on extension of DIP. palpable click with extension of DIP. finger to thumb opposition intact. finger strength intact. 2+ radial/ ulnar pulse intact. sensation intact. cap refill <2 sec. Differential diagnosis includes fracture, ligament/ tendon injury, arthritis. Unlikely gout, pseudo gout. Plan for xrays and re-evaluation. Differential Diagnosis Differential Diagnoses: The differential diagnosis associated with the presentation includes as above. Admission/Observation Not indicated. Independent Interpretation I performed an independent interpretation of an: Plain X-Ray Interpretation: xr right hand without fracture Radiology Impression Discussion of test interpretation with radiology: I have reviewed the radiologist's reading. Radiologist Impression: EXAMINATION: XR HAND/WRIST, RIGHT CLINICAL INFORMATION: RIght thumb pain COMPARISON: None available. TECHNIQUE: PA, lateral, and oblique views of the right hand and wrist. FINDINGS: No definite fractures, dislocations, or focal bony abnormalities. 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 Mild to moderate arthritis in the first and second MCP joints. Carpal bones intact and otherwise normally aligned. No soft tissue abnormalities. XR/XR hand wrist RT IMPRESSION: 1. No acute findings of the hand and wrist. 2. Arthritic changes most prominent first CMC joint. Electronically signed by: Maxi Simons MD 01/18/2024 04:55 PM [facility] External Record Review External record reviewed: Inpatient record, Office record, Outpatient record, Prior outpatient labs, Prior outpatient radiology, Primary care record and Outside ED record Prescription Management I considered prescription management with: Other (prednisone) Chronic Conditions Patient?s care impacted by: Other (arthritis) Social Determinants Patient?s care significantly limited by Social Determinants of Health including: Other Social Determinant of Health Critical Care Time Critical Care Time Critical Care Time: No Discharge Plan Discharge Clinical Impression: Sprain of right thumb, Arthritis Patient Disposition: Home, Self-Care Instructions: Finger Sprain (ED) Additional Instructions: You were evaluated in the ED today for right thumb pain. The x-ray of your hand shows moderate to severe arthritic changes within the joints of his right thumb. As discussed, there is concern for chronic ligament/ tendon injury. Your finger was splinted today to limit range of motion. I am sending prednisone to your pharmacy. Take this as prescribed over the next 5 days. I recommend you follow-up with our hand surgeon, Dr. Price. Call their office tomorrow morning to schedule an appointment. They will not call you. Please return with any new or worsening symptoms. In the case of an emergency call 911. Prescriptions: New prednisone 20 mg tablet 40 mg PO DAILY 5 Days Qty: 10 0RF No Action albuterol sulfate 90 mcg/actuation HFA aerosol inhaler 2 puff inhalation Q4-6H PRN (Reason: Wheezing) Qty: 1 0RF levothyroxine 75 mcg tablet 75 mcg PO DAILY Qty: 90 8RF enalapril maleate 20 mg tablet 20 mg PO DAILY Qty: 90 8RF hydrochlorothiazide 12.5 mg tablet 12.5 mg PO DAILY Qty: 90 3RF gabapentin 300 mg capsule 300 mg PO TID Qty: 90 6RF triamcinolone acetonide 0.5 % cream 1 appl topical TID Qty: 15 3RF chlorhexidine gluconate 0.12 % mouthwash 15 ml buccal BID Qty: 1893 2RF esomeprazole magnesium 20 mg capsule,delayed release(DR/EC) 20 mg PO DAILY aspirin [Adult Aspirin Regimen] 81 mg tablet,delayed release (DR/EC) 81 mg PO DAILY Qty: 90 5RF baclofen 10 mg tablet 10 mg PO BID evolocumab 140 mg/mL pen injector 140 mg subcut Q2W Qty: 2 4RF lorazepam 1 mg tablet 1 mg PO Q6H PRN (Reason: anxiety) Qty: 120 0RF Referrals: Kyree Valentino MD [Primary Care Provider] - Vilma Price MD [Physician] - 2 days (sprain of right first digit) Interventions: ED Discharge Assessment Last Done: 01/18/24 17:37 Discharge Date/Time: 01/18/24 17:38 Print Language: Kyrgyz
[2024-01-18 16:53] VITALS: BP 156/89; PULSE 63; RESP 16; TEMP 36.9; O2SAT 98
[2024-01-18 17:37] VITALS: BP 156/89; PULSE 63; RESP 16; TEMP 36.9; O2SAT 98
--- OUTSIDE RECORDS SUMMARY | 2024-01-20 15:59 | XMS_ITS | Patient Health Record ---
Author Organization [facility] Address [address] [place] [id number] Care Team Providers Care Ent Physician Name Role Phone Kyree Valentino MD Primary Care Provider Jae Grier Jr Unavailable ALLERGIES Allergen (clinical drug ingredient) Drug/Non Drug Allergy documented on EMR Reaction Allergy Type Onset Date Status simvastatin Zocor muscle pain Drug Allergy Act niesha REASON FOR REFERRAL No Information MEDICATIONS Medication SIG (Take, Route, Frequency, Duration) Notes Start Date End Date Status LORazepam Active Spiriva Respimat Not -Taking Albuterol Sulfate HFA Active Esomeprazole Magnesium Active hydroCHLOROthiazide Active Aspirin Adult Low Strength Active MiraLax (colon prep) 8.3 ounce ((238) grams mixed with Gatorade or Crystal Light orally begin at 5:00 p.m. the day before the procedure for 1 day 12/12/2019 Active Enalapril Maleate 20 MG 1 tablet Orally Twice a day Active Carvedilol Active Levothyroxine Sodium Active Stiolto Respimat Act niesha IMMUNIZATIONS Vaccine Route Administration Date Status Comme nts Influenza Unknown 10/19/2019 Administered SOCIAL HISTORY Tobacco Use: Social History Observation Description Date Details (start date - stop date) Former Smoker NA - NA Sex Assigned At : Social History Observation Description Sex Assigned At Unknown Tobacco Use/Smoking Question Answer Notes Patient is a former smoker When did you stop smoking? 4 years How long has it been since you last smoked? 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 (K22.70) Active confirmed Cook's esophagus (016420429) PLAN OF TREATMENT Future Test Test Name Order Date UPPER GI ENDOSCOPY 08/30/2014 COLONOSCOPY 08/30/2014 UPPER GI ENDOSCOPY 12/12/2019 COLONOSCOPY 12/12/2019 Insurance Providers Payer Name Payer Address Payer Phone Subscriber Number Group Number Insured Name Patient Relationship to Insured Coverage Start Date Coverage End Date MEDICARE OF [place] [address] [place] [address] [id number] INGRIS ALEMAN Self - patient is the insured MEDICAID OF [facility] [address] [place] [address] [id number] INGRIS ALEMAN Self - patient is the insured MEDICAL (GENERAL) HISTORY Medical History History ICD Code colonoscopy 11/10/14, normal, five-year f ollowup because of family history. egd 11/10/14, Cook's esophagus over th e distal 1 cm, biopsies no dysplasia gerd hypertension elevated cholesterol back pain Barretts esophagus 530.85 Surgical History Surgery Date(Month/Year)
--- OUTSIDE RECORDS SUMMARY | 2024-01-20 15:59 | XMS_ITS | Continuity of Care Document ---
Author Organization [facility] ter Address [address] [place] [id number]- Care Team Providers Care Acid Changer Name Role Phone Chicho TO, Kyree Banda Primary Care Physician Encounter [facility] [place] [place] Date(s): 11/17/23 - 12/27/[address] [address]- Attending Physician: Bernardo Hood MD Admitting Physician: Bernardo Hood MD Referring Physician: Bernardo Hood MD Encounter Type: Pre-Outpt Allergies, Adverse Reactions, Alerts No Known Allergies Medications cannabidiol = 350 mg, By Mouth, 2 times a day, 0 Refills, Maintenance, 07/05/19 8:08:00 AM EDT Start Date: 07/05/19 Status: Ordered Repeat number: 1 Carvedilol By Mouth, Refills 0, Maintenance, 07/05/19 8:06:00 AM EDT Start Date: 07/05/19 Status: Ordered Repeat number: 1 Enalapril 0 Refills, Maintenance, 11/16/15 3:21:56 PM EDT Start Date: 11/16/15 Status: Ordered Repeat number: 1 LORazepam 0.5 mg oral tablet 1 tablet = 0.5 mg, By Mouth, 0 Refills, Maintenance, 11/16/15 3:22:40 PM EDT Start Date: 11/16/15 Status: Ordered Repeat number: 1 Naproxen By Mouth, PRN as needed for pain, 0 Refills, Maintenance, 01/22/18 1:29:39 PM EST Start Date: 01/22/18 Status: Ordered Repeat number: 1 Nexium 20 mg oral enteric coated capsule 1 capsule = 20 mg, By Mouth, Daily, 0 Refills, Maintenance, 07/05/19 8:05:00 AM EDT Start Date: 07/05/19 Status: Ordered Repeat number: 1 Problem List Condition Confirmation Course Effective Dates Status Health St [facility] Informant Back pain Confirmed Active Closed fracture of zygomatic arch Confirmed Active HTN (hypertension) Confirmed Active Patient Care team information Care Team Personnel Name: Chicho TO, Kyree Banda Position: Reference Physician Member Role: PCP Address: [address] [place] [address] Telecom: Care Team Related Persons Name: THERESA ALEMAN Insurance Providers Guarantor name: INGRIS ALEMAN Health Plan Information #: 2 Payer: [employer] Member Number: [id number] Policy Number: NA Group Number: NA Health Plan Information #: 1 Payer: MEDICARE PART B OUTPT Member Number: [id number] Policy Number: NA Group Number: NA
== END 2024-01-18 17:38 | disposition home or self-care (01) ==
PROVIDERS: Emergency Provider Emergency Medicine Emergency Medical Services; PCP Internal Medicine
DX: S63.601A Unspecified sprain of right thumb, initial encounter (principal); M25.531 Pain in right wrist; M79.641 Pain in right hand; X58.XXXA Exposure to other specified factors, initial encounter; Y93.89 Activity, other specified; Y92.89 Other specified places as the place of occurrence of the external cause; Y99.8 Other external cause status; Z87.891 Personal history of nicotine dependence
CPT/HCPCS: 29130; 73110; 73130; 99283; 99284

== ENCOUNTER 2024-02-16 09:39 | Outpatient (AMB) | payer MEDICARE, MEDICAID, SELFPAY ==
--- NOTE | 2024-02-16 09:41 | MHC.OFFVIS ---
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 Patient reports sustaining while he was cutting hot peppers with a knife at the tip of his thumb 4 months ago. He was evaluated at urgent care for this where they dressed the laceration and had him return a few days later to remove the dressing. He admits that when the nurse attempted to remove the dressing with scissors, his thumb became further irritated. Since this time he has had intermittent pain to the interphalangeal joint of the right thumb. He states that this worsened approximately 2-3 week ago. He reports an intermittent clicking sensation when he extends the joint. Symptoms are worse on waking in the morning and seem to improve throughout the day. 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 After talking with him for a while, the bottom line is that his chief complaint is of a locking and catching sensation in the right thumb. He reports cutting the pad of his right thumb in 11/29/2023. He says he was eventually seen at an emergency clinic where he was placed in a dressing. He says this location gave him poor treatment and was not following proper hygiene procedures, including cleaning his wound. He also says he developed a oskar which then turned into an infected blister over the dorsal aspect of the IP joint of the thumb. He treated this with wound care and it improved. Afterwards he believes he developed painful clicking in his knuckle when bending his thumb. He reports painful locking of his thumb primarily when he wakes up. He also complains of painful locking of his left middle finger, but says this is not as bothersome as his right hand. [facility] Medical History Obesity Hypothyroidism Screening for prostate cancer Screening for diabetes mellitus Back pain Elevated cholesterol GERD (gastroesophageal reflux disease) Cook esophagus Hypertension CESPEDES (dyspnea on exertion) Surgical History Hx of cardiac catheterization History of esophagogastroduodenoscopy (EGD) Hx of colonoscopy Family History Father CVD (cardiovascular disease) Diabetes Myocardial infarct Mother Breast cancer Sister Colon cancer Son Substance use disorder Social History (Updated 02/16/24 @ 09:47 by Meenu Bronson [facility]) Housing: House Are you a primary director medicare sales to a significant other at home: No Do you presently have visiting nurse or other home services: No Alcohol intake: former Patient Tobacco Use Status: Former Tobacco user Tobacco use type: Cigarette Years Smoked: 30 +/- e-Cigarette/Vaping Use: Never Used Second Hand Smoke Exposure: No service: No Current occupational status: retired and disabled Current occupation: left hand Cognitive needs: No Hearing needs: No Vision needs: Yes (glasses) Review of Systems Const All systems reviewed & are unremarkable except as noted in HPI and below Physical Exam Vital Signs: BMI result Body Mass Index 33.4 Const General: cooperative, healthy appearing and no acute distress Orientation/consciousness: patient oriented x3 HEENT Head: Yes normocephalic and Yes atraumatic Eyes EOM: EOMs intact bilaterally Resp Effort & Inspection: normal respiratory effort and able to speak in complete sentences Cardio Jugular venous distension: no JVD Skin General skin exam: turgor normal Rashes: no rashes Neuro General: patient oriented x3 Extrem Other: Evaluation of Right Upper Extremity: The patient is alert, oriented, and in no acute distress Neuro: Median, Ulnar, Radial nerves motor and sensory intact and sensation is normal to the tips of all digits Vascular: Cap refill brisk ROM: He can make a fist and extend all his digits Visible and palpable locking & catching of the right thumb . The right thumb feels like a ratcheting sensation with several points of catching with flexion and extension. This is palpable over the A1 lona. No catching seen in the left middle finger today, but he does have a mild flexion contracture at the PIP joint of the left middle finger with a history of locking and catching. Mild tenderness over the a1 lona of the right thumb & left middle finger Skin: No lacerations or abrasions. General: No Ecchymosis. No Erythema or evidence of infection. He has also got an old radial collateral ligament injury of the right thumb MCP joint. Interestingly, he can actively abduct the thumb and hold the MCP joint in neutral alignment. However, on testing, the radial collateral ligament is for the most part incompetent. The ulnar collateral ligament at the MCP joint has a good end point. He has also got a positive shoulder sign at the basal joint, but is not particularly tender there. Radiographs: 3 views of the right hand, with attention to the thumb, from 01/18/24 were reviewed by me today in clinic. They show basal joint arthritis. There is also evidence of an old RCL injury as there is some evidence of ulnar deviation at the MCP joint. Psych Appearance: grossly normal Affect: normal affect Attitude: cooperative Assessment & Plan Assessment & Plan (1) Trigger thumb, right thumb: Code(s): M65.311 - Trigger thumb, right thumb Category: Medical (2) Severe persistent asthma: Code(s): J45.50 - Severe persistent asthma, uncomplicated Category: Medical (3) Asthma-COPD overlap syndrome: Code(s): J44.9 - Chronic obstructive pulmonary disease, unspecified Category: Medical (4) Trigger finger, left middle finger: Code(s): M65.332 - Trigger finger, left middle finger Category: Medical Plan Assessment & Plan: 1. Right trigger thumb I educated him about this condition I discussed operative and non-operative treatment options The patient would like to proceed with surgery The risks and benefits of operative treatment were discussed with the patient and the patient wishes to proceed with surgery. These risks include, but are not limited to risk of damage to blood vessels, nerves, tendons, infection, recurrence, incomplete relief of preoperative symptoms, persistent pain, possible need for further surgery and the risks associated with regional blocks and anesthesia. The plan is to take the patient to the operating room sometime in the next few weeks for the following procedures: 1. Right trigger thumb release, under local All of the preoperative paperwork including the consent was reviewed today. All the patient's questions were answered. The patient understands that they will be contacted by our surgery specialist soon to schedule this procedure He denies Diabetes, heart, kidney issues He takes Aspirin daily and has both asthma & COPD, which he manages with an inhaler. 2. Left middle finger trigger finger He will follow up to discuss treatment options when his right hand has recovered 3. Right basal joint arthritis Not discussed today 4. Old right thumb MCP joint radial collateral ligament injury with instability Not particularly bothersome at this point 5. Right thumb pad laceration DOI: ~11/2023 Well-healed & resolved at this time Scribed for Vilma Price MD by Sudarshan Nieves, medical assistant secretary, on 02/16/24 at 9:55 AM, EST. Coding Level of Care Code New Pt Level 4 (47995) Diagnoses Trigger thumb, right thumb M65.311 Severe persistent asthma J45.50 Asthma-COPD overlap syndrome J44.9 Trigger finger, left middle finger M65.332
[2024-02-16 09:42] VITALS: BMI 33.4
--- OUTSIDE RECORDS SUMMARY | 2024-02-16 09:58 | XMS_ITS | Patient Health Record ---
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 [address] [place] [address] [id number] INGRIS ALEMAN Self - patient is the insured MEDICAL (GENERAL) HISTORY Medical History History ICD Code colonoscopy 11/10/14, normal, five-year f ollowup because of family history. egd 11/10/14, Cook's esophagus over th e distal 1 cm, biopsies no dysplasia gerd hypertension elevated cholesterol back pain Barretts esophagus 530.85 Surgical History Surgery Date(Month/Year)
== END 2024-02-16 10:07 | disposition home or self-care (01) ==
PROVIDERS: PCP Internal Medicine; Visit Provider Orthopaedic Surgery
DX: M65.311 Trigger thumb, right thumb (principal); J45.50 Severe persistent asthma, uncomplicated; J44.9 Chronic obstructive pulmonary disease, unspecified; M65.332 Trigger finger, left middle finger
CPT/HCPCS: 99204

== ENCOUNTER → 2024-02-16 09:39 | Outpatient (BNVA) | payer MEDICARE, MEDICAID, SELFPAY | PROVIDERS: PCP Internal Medicine; Visit Provider Orthopaedic Surgery | DX: M65.311 Trigger thumb, right thumb (principal); M65.332 Trigger finger, left middle finger; J45.50 Severe persistent asthma, uncomplicated; J44.9 Chronic obstructive pulmonary disease, unspecified | CPT/HCPCS: 99202 ==

== ENCOUNTER 2024-03-11 08:08 | Outpatient (AMB) | payer MEDICARE, MEDICAID, SELFPAY ==
--- OUTSIDE RECORDS SUMMARY | 2024-03-11 08:12 | XMS_ITS | Data Portability ---
Author Organization [place] - [facility], Allergy Address [address] [address] Care Team Providers Care Design Engineer Agricultural Equipment Name Role Phone BRANDON SUTHERLAND Primary Care Provider Assessment Encounter Date Assessment Date Assessment LastModified by Organization Details LastModified Time 09/30/2023 09/30/2023 67-year-old male with asymmetric hearing loss presents for review of MRI. MRI brain/IAC 07/14/2023 was negative for retrocochlear pathology. Bilateral TMs are intact with well aerated middle ear spaces. Masking techniques recommended for tinnitus. CBT and tinnitus retraining therapy were also discussed. We will continue to observe and plan for yearly audiometric testing, or sooner with any changes in his hearing. Patient is borderline candidate for amplification. He will consider this. [email or web address] Not available 09/30/2023 10:03:08 Plan of Treatment Reminders Order Date Submit Date Provider Last Modified By Organization Details Last Modified Time Details Appointments Establish ed 15 2024 09:00A M Hearing Test Not available Not available Not available Establish ed 15 2024 09:30A M PATTI KING PA-C Not available Not available Not available Lab None recorded. Referral None recorded. Procedures None recorded. Surgeries None recorded. Imaging None recorded. Medication Orders None recorded. Patient TargetsNo targets recorded. Patient InstructionsNo instructions recorded. Reason for Referral None Reported. Results Created Date Observation Date Name Description Value Unit Range Abnormal Flag Note LastModifiedBy Organization Detail LastModifiedTime 09/29/19 24 05/21/2023 imagi ng/di agnos tic resul t No observ ation record ed. [email or web address] Not Available 19:33:47 09/29/19 24 05/21/2023 audio gram No observ ation record ed. [email or web address] Not Available 19:34:06 Result Notes None recorded. Problems Name Problem SNOMED Code Status Onset Date Resolution Date Notes Provider Name and Address Organization Details Recorded Time Ulcerativ e rhinitis 07955789 Active 2023 Nasal mucositis (ulcerati ve); Note: Date Diagnosed : 03/20/2023 9:49 AM (J34.81) Not Available [facility] 4 02:18:48 Bilateral tinnitus 87418371637 02 Active 2023 Tinnitus, bilateral ; Note: Date Diagnosed : 05/21/2023 2:27 PM (H93.13) Not Available [facility] 4 02:18:58 Somatofor m disorder 83209818 Active 2023 Psychogen ic dysphagia , including 'globus hystericu s'; Note: Date Diagnosed : 04/14/2023 10:50 AM (F45.8) Not Available [facility] 4 02:19:13 Seborrhei c dermatiti s 75379325 Active 2023 Seborrhei c dermatiti s, unspecifi ed; Note: Date Diagnosed : 05/21/2023 2:30 PM (L21.9) Not Available [facility] 4 02:19:29 Temporoma ndibular joint disorder 68112977 Active 2023 Other specified disorders of temporoma ndibular joint; Note: Date Diagnosed : 05/21/2023 4:31 PM (M26.69) Not Available [facility] 4 02:19:41 Sensorine ural hearing loss of bilateral ears 237282158 Active 2023 Sensorine ural hearing loss, bilateral ; Note: Date Diagnosed : 05/21/2023 2:00 PM (H90.3) Not Available [facility] 4 02:19:41 Problem Notes None recorded. Procedures Surgical History None recorded. Imaging Results Imaging Date Name Status LastModified by Organiz ation Details LastModified Time 05/21/2023 imaging/diagno stic result completed Information not available 09/29/2023 19:33:47 05/21/2023 audiogram completed Information not available 09/29/2023 19:34:06 Procedure Notes None recorded. Medical Equipment None Reported. Medications Name Sig Start Date Stop Date Status Note LastModified by Organization Details LastModified Time enalapril maleate 20 mg tablet TAKE 1 TABLET (20MG) BY MOUTH DAILY active Not Available Not Available Not Available aspirin 81 mg tablet,delay ed release TAKE 1 TABLET BY MOUTH EVERY DAY active Not Available Not Available No t Available levothyroxin e 75 mcg tablet TAKE 1 TABLET BY MOUTH EVERY DAY active Not Available Not Available No t Available baclofen 10 mg tablet TAKE 1 TABLET BY MOUTH TWICE A DAY active Not Available Not Available No t Available gabapentin 300 mg capsule TAKE 1 CAPSULE BY MOUTH THREE TIMES A DAY active Not Available Not Available Not Available mupirocin 2 % topical ointment APPLY SPARINGLY 3 TIMES A DAY AFTER WARM COMPRESS X 10-15 MINUTES active Not Available Not Available No t Available lorazepam 1 mg tablet 1 MG ORALLY EVERY 6 HOURS NEEDED FOR ANXIETY active Not Available Not Available No t Available chlorhexidin e gluconate 0.12 % mouthwash SWISH 15ML BUCCALLY TWICE A DAY, SPIT DO NOT SWALLOW active Not Available Not Available No t Available hydrochlorot hiazide 12.5 mg tablet TAKE 1 TABLET ORALLY DAILY active Not Available Not Available No t Available budesonide-f ormoterol HFA 160 mcg-4.5 mcg/actuatio n aerosol inhaler INHALE 2 PUFFS TWICE A DAY active Not Available Not Available No t Available Stiolto Respimat 2.5 mcg-2.5 mcg/actuatio n solution for inhalation INHALE 2 PUFFS BY MOUTH ONCE DAILY active Not Available Not Available No t Available Repatha SureClick 140 mg/mL subcutaneous pen injector INJECT 140 MG SUBCUTANEOU SLY EVERY 2 WEEKS active Not Available Not Available No t Available Vitals Date Recorded Body height Body mass index (BMI) Body weight Provider Name and Address Organization Details Last Updated DateTime 09/30/2023 172.72 cm 32.7 kg/m2 81383.36 g Cass Willis [place] [facility] 09/30/2023 09:30:59 Social History None recorded. Functional Status None recorded. Mental Status None recorded. Family History Nothing Reported. Medical History No medical history recorded. Gynecological HistoryNo gynecological history recorded. Obstetrics History GPAL:G 0 P 0 0 0 0 Past Encounters Encounter ID Performer Location Encounter Start Date Encounter Closed Date Diagnosis/Indication Diagnosis SNOMED-CT Code Diagnosis ICD10 Code Diagnosis Note [id number] JOE KLINE MD [facility] [address] [address] 09/30/2023 09:19:22 09/30/2023 09:52:56 Sensorineural hearing loss of bilateral ears 154548002 H90.3 Bilateral tinnitus 92642 44247 102 H93.13 Health Concerns Section Related Observation LastModified by Organization Detai ls LastModified Time None Recorded Concern Status LastModified by Organization Details LastModified Time None Recorded Advance Directives Directive None Recorded Payers Encounter Date Sequence Insurance Name Policy Number Policy Carmen Covered Member ID Carmen Member ID Guarantor Name 09/30/2023 1 [place]ARE B[place]: [employer] Girish Hale [id number] Girish Hale 09/30/2023 2 [place]: [facility] Girish Hale [id number] Girish Hale Notes Date Note Type Note Provider Name and Address Organization Details Recorded Time 09/30/2023 text/html 67-year-old male presents for review of MRI. He was evaluated back in May and audiometric testing demonstrated asymmetric hearing loss. History of occupational noise exposure. Denies otalgia, otorrhea, and changes in his hearing. Continues to have longstanding tinnitus bilaterally that is intermittent. JOE KLINE MD [address] [place] [address], [phone], [facility] - [facility] 09/30/2023 18:00:16 OBGyn Episode No OBEpisode recorded.
--- NOTE | 2024-03-11 08:15 | A.OFFPC_ITS ---
Vital Signs 03/11/24 08:16 Height 5 ft 8 in Weight 225 lb 6 oz BMI 34.3 BP 128/72 Blood Pressure Location Lt brachial Position Sitting Pulse 87 Pulse Source Pulse Oximeter Pulse Oximetry (%) 98 Oxygen Delivery Method Room Air Intake Visit Reasons: 3 month f/u Meat Soaker Required: No Accompanied by: Self / Same As Patient Allergies meloxicam Adverse Reaction (Severe, Verified 03/11/24 08:16) Chest Pain rosuvastatin Adverse Reaction (Severe, Verified 03/11/24 08:16) Muscle cramps baclofen Adverse Reaction (Unknown, Verified 03/11/24 08:16) chest pain meperidine [From Demerol] Adverse Reaction (Verified 03/11/24 08:16) Nausea simvastatin [From Zocor] Adverse Reaction (Verified 03/11/24 08:16) Muscle Pain Medication List - Last Reconciled 03/11/24 by Kyree Valentino MD albuterol sulfate 90 mcg/actuation 2 puffs inhalation Q4-6H PRN aspirin (Adult Aspirin Regimen) 81 mg PO DAILY baclofen 10 mg PO BID chlorhexidine gluconate 0.12% 15 mL buccal BID enalapril maleate 20 mg PO DAILY esomeprazole magnesium 20 mg PO DAILY evolocumab 140 mg subcut Q2W gabapentin 300 mg PO TID hydrochlorothiazide 12.5 mg PO DAILY levothyroxine 75 mcg PO DAILY lorazepam 1 mg PO Q6H PRN triamcinolone acetonide 0.5% 1 appl topical TID Tobacco use date assessed: 03/11/24 Fall risk assessment: No Falls in past year Last assessed Fall Risk: 03/11/24 Dental Screening Dental Screen Date: 03/11/24 Did you have a dental visit in the last 12 months?: Yes Did you have a dental problem in the last 6 months where you did not have access to dental care?: No Was dental information given to patient?: Patient has dentist HPI 3 month f/u HPI Details HTN on Rx; doing well and compliant [facility] Medical History Obesity Hypothyroidism Screening for prostate cancer Screening for diabetes mellitus Back pain Elevated cholesterol GERD (gastroesophageal reflux disease) Cook esophagus Hypertension CESPEDES (dyspnea on exertion) Surgical History Hx of cardiac catheterization History of esophagogastroduodenoscopy (EGD) Hx of colonoscopy Family History Father CVD (cardiovascular disease) Diabetes Myocardial infarct Mother Breast cancer Sister Colon cancer Son Substance use disorder Social History Housing: House Are you a primary residential child care counselor to a significant other at home: No Do you presently have visiting nurse or other home services: No Alcohol intake: former Patient Tobacco Use Status: Former Tobacco user Tobacco use type: Cigarette Years Smoked: 30 +/- e-Cigarette/Vaping Use: Never Used Second Hand Smoke Exposure: No service: No Current occupational status: retired and disabled Current occupation: left hand Cognitive needs: No Hearing needs: No Vision needs: Yes (glasses) Questionnaire Thrive Questionnaire Date Thrive assessed: 03/11/24 I am a: Patient What is your living situation today?: I have a steady place to live Within the past 12 months, did the food you bought not last and you didn't have the money to get more?: Never true Within the past 12 months, did you worry whether your food would run out before you got money to buy more?: Never true Do you have trouble paying for medicines?: No Do you have trouble getting transportation to medical appointments?: No Do you have trouble paying your heating and electricity bill?: No Do you have trouble taking care of your child, family member or friend?: No Do you have trouble with day-to-day activities such as bathing, preparing meals, shopping, managing finances, etc.?: No Are you currently unemployed and looking for a job?: No Are you interested in more education?: No Please select the resources that you would like help with: None Currently or been in a relationship where the following occur: No concerns reported THRIVE Score: 0 AUDIT C Alcohol Use Questionnaire (AUDIT-C) 1. How often do you have a drink containing alcohol?: Never 3. How often do you have six or more drinks on one occasion?: Never Total Score: 0 Score Reviewed/Action Taken: Yes OTILIA-7 AMB Questionnaire OTILIA-7 Date OTILIA - 7 assessed: 03/11/24 Feeling nervous, anxious, or on edge: 0 = Not at all Not being able to stop or control worryin = Not at all Worrying too much about different things: 0 = Not at all Trouble relaxin = Not at all Being so restless that it is hard to sit still: 0 = Not at all Becoming easily annoyed or irritable: 0 = Not at all Feeling afraid as if something awful might happen: 0 = Not at all Total OTILIA-7 score (0-4 normal; 5-9 mild; 10-14 moderate; 15-21 severe): 0 Source: Developed by Drs. Leroy Valentine, Teresa Mcnamara, Balta Francois and colleagues, with an educational yaniv from [facility]. Review of Systems Const Denies chills, Denies headache(s) and Denies weight loss ENT Denies headache(s) Card Denies chest pain, Denies syncope, Denies irregular heart rhythm and Denies dyspnea Resp Denies chest congestion, Denies cough and Denies dyspnea GI Denies abdominal pain, Denies change in stool character, Denies nausea and Denies vomiting Musc Denies deformity and Denies joint swelling Neuro Denies syncope and Denies headache(s) Physical exam (Primary Care) Vital Signs: Last Vital Signs Pulse 87 03/11/24 08:16 BP 128/72 03/11/24 08:16 Pulse Ox 98 03/11/24 08:16 Oxygen Delivery Method Room Air 03/11/24 08:16 BMI result Body Mass Index 34.3 Tobacco/Smoking Status: Tobacco use Status Tobacco use date assessed 03/11/24 03/11/24 08:21 Patient Tobacco Use Status Former Tobacco user 03/11/24 08:21 Tobacco use type Cigarette 03/11/24 08:21 e-Cigarette/Vaping Use Never Used 03/11/24 08:21 Thrive Assessment: Date of Thrive Assessment Date Thrive assessed 03/11/24 03/11/24 08:21 Currently or been in a relationship where the following occur: No concerns reported Const General: cooperative, comfortable, no acute distress and alert Neck Neck: Yes no lymphadenopathy Thyroid: Thyroid normal Resp Effort & Inspection: normal respiratory effort Auscultation: clear to auscultation bilaterally Percussion: percussion normal Cardio Jugular venous distension: no JVD Palpation: normal PMI Rate: regular rate Rhythm: regular rhythm Heart sounds: S1 normal heart sound present and S2 normal heart sound present GI Inspection: Yes normal to inspection Palpation (GI): No hepatosplenomegaly present Skin General skin exam: no rashes or lesions noted Extrem General: Yes no clubbing, cyanosis or edema Coding Level of Care Code Est Pt Level 3 (13870) Diagnoses Hypertension, unspecified type I10 Hypertension type: unspecified Assessment & Plan Assessment & Plan (1) Hypertension: Code(s): I10 - Essential (primary) hypertension Category: Medical Qualifiers: Hypertension type: unspecified Qualified Code(s): I10 - Essential (primary) hypertension Plan: stable; same rx
[2024-03-11 08:16] VITALS: BP 128/72; PULSE 87; O2SAT 98; BMI 34.3
== END 2024-03-11 08:39 | disposition home or self-care (01) ==
PROVIDERS: PCP Internal Medicine; Visit Provider Internal Medicine
DX: I10 Essential (primary) hypertension (principal)

== ENCOUNTER → 2024-03-11 08:08 | Outpatient (BNVA) | payer MEDICARE, MEDICAID, SELFPAY | PROVIDERS: PCP Internal Medicine; Visit Provider Internal Medicine | DX: I10 Essential (primary) hypertension (principal) | CPT/HCPCS: 99212 ==

== ENCOUNTER 2024-06-08 08:52 | Outpatient (AMB) | payer MEDICARE, MEDICAID, SELFPAY ==
[2024-06-08 08:58] VITALS: BP 138/78; PULSE 66; RESP 18; TEMP 37.1; O2SAT 96; BMI 34.1
--- NOTE | 2024-06-08 08:58 | A.OFFPC_ITS ---
Vital Signs 06/08/24 08:58 Height 5 ft 8 in Weight 224 lb BMI 34.1 BP 138/78 Blood Pressure Location Lt brachial Position Sitting Respiration 18 Pulse 66 Pulse Source Pulse Oximeter Temp 98.7 F Temp Source Oral Pulse Oximetry (%) 96 Oxygen Delivery Method Room Air Intake Visit Reasons: transfer from [address]/ [employer] Required: No Accompanied by: Self / Same As Patient Allergies meloxicam Adverse Reaction (Severe, Verified 06/08/24 09:23) Chest Pain rosuvastatin Adverse Reaction (Severe, Verified 06/08/24 09:23) Muscle cramps baclofen Adverse Reaction (Unknown, Verified 06/08/24 09:23) chest pain meperidine [From Demerol] Adverse Reaction (Verified 06/08/24 09:23) Nausea simvastatin [From Zocor] Adverse Reaction (Verified 06/08/24 09:23) Muscle Pain Medication List - Last Reconciled 06/12/24 by DENNY Franks albuterol sulfate 90 mcg/actuation 2 puffs inhalation Q4-6H PRN alirocumab (Praluent Pen) 150 mg subcut Q14D aspirin (Adult Aspirin Regimen) 81 mg PO DAILY baclofen 10 mg PO BID enalapril maleate 20 mg PO DAILY esomeprazole magnesium 20 mg PO DAILY gabapentin 300 mg PO TID hydrochlorothiazide 12.5 mg PO DAILY levothyroxine 75 mcg PO DAILY lorazepam 1 mg PO BEDTIME PRN triamcinolone acetonide 0.5% 1 appl topical TID Tobacco use date assessed: 06/08/24 Fall risk assessment: No Falls in past year Last assessed Fall Risk: 06/08/24 Dental Screening Dental Screen Date: 06/08/24 Did you have a dental visit in the last 12 months?: Yes Did you have a dental problem in the last 6 months where you did not have access to dental care?: No Was dental information given to patient?: Patient has dentist HPI transfer from [address]/ HPI Details The patient is a 68-year-old male presenting for transition of care and for the management of chronic conditions. The patient suffers from significant pain related to long-standing degenerative arthritis affecting his spine, compounded by spinal stenosis indicated in recent medical evaluations at [facility]. MRI results were performed to gather further insight into this condition. His history also includes emphysema, managed with regular follow-up, alongside chronic migraine conditions for which he uses gabapentin. Muscle spasms, possibly linked to neck tension, remain problematic. He finds some relief with lorazepam, used judiciously due to previous guidance on safe usage with other therapies. In prior care, a possible carotid stenosis was identified but has since been contested by additional testing, leading to discontinuation in concern. His allergies and thyroid dysfunctions are monitored regularly. He is currently on thyroid treatment. The patient has not completed follow up labs and will get these raul. Patient reports heart palpitation on and off for this he has been seeing [facility] ardiology (through [facility] [place]); remains stable He also reports numbness and tingling down legs on and off and leg cramps intermittently Patient has chronic shortness of breath with exertion related to his lung diseases [facility] Medical History Obesity Hypothyroidism Screening for prostate cancer Screening for diabetes mellitus Back pain Elevated cholesterol GERD (gastroesophageal reflux disease) Cook esophagus Hypertension CESPEDES (dyspnea on exertion) Surgical History Hx of cardiac catheterization History of esophagogastroduodenoscopy (EGD) Hx of colonoscopy Family History Father CVD (cardiovascular disease) Diabetes Myocardial infarct Mother Breast cancer Sister Colon cancer Son Substance use disorder Social History Housing: House Are you a primary career technology teacher to a significant other at home: No Do you presently have visiting nurse or other home services: No Alcohol intake: former Patient Tobacco Use Status: Former Tobacco user Tobacco use type: Cigarette Years Smoked: 30 +/- e-Cigarette/Vaping Use: Never Used Second Hand Smoke Exposure: No service: No Current occupational status: retired and disabled Current occupation: left hand Cognitive needs: No Hearing needs: No Vision needs: Yes (glasses) Questionnaire PHQ-9 Over the last 2 weeks, how often have you been bothered by any of the following problems? 1. Little interest or pleasure in doing things: not at all 2. Feeling down, depressed, or hopeless: not at all 3. Trouble falling or staying asleep, or sleeping too much: not at all 4. Feeling tired or having little energy: not at all 5. Poor appetite or overeating: not at all 6. Feeling bad about yourself - or that you are a failure or have let yourself or your family down: not at all 7. Trouble concentrating on things, such as reading the newspaper or watching television: not at all 8. Moving or speaking so slowly that other people could have noticed. Or the opposite - being so fidgety or restless that you have been moving around a lot more than usual: not at all 9. Thoughts that you would be better off or of hurting yourself in some way: not at all Total score: 0 Depression Screening Interpretation: Negative Depression Screening Done: Yes Source: Developed by Drs. Leroy Valentine, Teresa Mcnamara, Balta Francois and colleagues, with an educational yaniv from [employer]. Thrive Questionnaire Date Thrive assessed: 06/08/24 I am a: Patient What is your living situation today?: I have a steady place to live Within the past 12 months, did the food you bought not last and you didn't have the money to get more?: Never true Within the past 12 months, did you worry whether your food would run out before you got money to buy more?: Never true Do you have trouble paying for medicines?: No Do you have trouble getting transportation to medical appointments?: No Do you have trouble paying your heating and electricity bill?: No Do you have trouble taking care of your child, family member or friend?: No Do you have trouble with day-to-day activities such as bathing, preparing meals, shopping, managing finances, etc.?: No Are you currently unemployed and looking for a job?: No Are you interested in more education?: No Please select the resources that you would like help with: None Currently or been in a relationship where the following occur: No concerns reported THRIVE Score: 0 AUDIT C Alcohol Use Questionnaire (AUDIT-C) 1. How often do you have a drink containing alcohol?: Never Total Score: 0 Score Reviewed/Action Taken: No OTILIA-7 AMB Questionnaire OTILIA-7 Date OTILIA - 7 assessed: 06/08/24 Feeling nervous, anxious, or on edge: 0 = Not at all Not being able to stop or control worryin = Not at all Worrying too much about different things: 0 = Not at all Trouble relaxin = Not at all Being so restless that it is hard to sit still: 0 = Not at all Becoming easily annoyed or irritable: 0 = Not at all Feeling afraid as if something awful might happen: 0 = Not at all Total OTILIA-7 score (0-4 normal; 5-9 mild; 10-14 moderate; 15-21 severe): 0 Source: Developed by Drs. Leroy Valentine, Teresa Mcnamara, Balta Francois and colleagues, with an educational yaniv from [employer]. Review of Systems Const Denies headache(s) Eyes Denies loss of vision ENT Denies vertigo, Denies dizziness, Denies headache(s), Reports neck pain and Denies sore throat Card Denies chest pain, Reports rapid heart rate (ON AND OFF), Denies leg edema, Denies lightheadedness and Reports dyspnea on exertion Resp Denies cough, Denies hemoptysis, Reports dyspnea on exertion and Denies wheezing GI Denies abdominal pain, Denies melena, Denies constipation, Denies diarrhea and Denies vomiting Denies dysuria, Denies urinary frequency and Denies urinary urgency Musc Reports back pain, Denies arthralgias, Denies joint swelling, Reports muscle cramps (On and off), Reports neck pain, Reports numbness (Lower extremities) and Reports tingling (Lower extremities) Neuro Denies Abnormal speech present, Denies behavioral changes, Denies vertigo, Denies dizziness, Denies headache(s), Denies loss of vision, Denies memory loss, Reports numbness (Lower extremities) and Reports tingling (Lower extremities) Psych Denies anxiety, Denies behavioral changes, Denies depression, Denies memory loss and Denies panic attacks Matty/Lymph Denies easy bleeding and Denies easy bruising Aller/Immun Denies wheezing Physical exam (Primary Care) Vital Signs: Last Vital Signs Temp 98.7 F 06/08/24 08:58 Pulse 66 06/08/24 08:58 Resp 18 06/08/24 08:58 BP 138/78 06/08/24 08:58 Pulse Ox 96 06/08/24 08:58 Oxygen Delivery Method Room Air 06/08/24 08:58 BMI result Body Mass Index 34.1 Tobacco/Smoking Status: Tobacco use Status Tobacco use date assessed 06/08/24 06/08/24 09:06 Patient Tobacco Use Status Former Tobacco user 06/08/24 09:06 Tobacco use type Cigarette 06/08/24 09:06 e-Cigarette/Vaping Use Never Used 06/08/24 09:06 PHQ-9: PHQ-9 Score PHQ-9: Total score 0 06/08/24 09:29 Depression Screening Interpretation: Negative Thrive Assessment: Date of Thrive Assessment Date Thrive assessed 06/08/24 06/08/24 09:06 Currently or been in a relationship where the following occur: No concerns reported Const General: healthy appearing, no acute distress, alert and awake Nutritional Appearance: well nourished Orientation/consciousness: oriented to person, oriented to place and oriented to time HENMT Ears: external ears normal General nose exam: Normal external nose present Eyes Conjunctivae: conjunctivae normal Sclerae: sclerae normal Pupils: Equal, round and reactive pupils present Neck Neck: Yes no lymphadenopathy and Yes no JVD Thyroid: Thyroid normal Carotids: no bruits Resp Effort & Inspection: normal respiratory effort and not tachypneic Auscultation: no crackles, no rales, no rhonchi and no wheezes Cardio Rate: regular rate Rhythm: regular rhythm Heart sounds: no murmurs and normal S1 and S2 GI Palpation (GI): Soft to palpation, nontender, no hepatomegaly and no splenomegaly Auscultation: normal bowel sounds Back/Spine/Pelvis Cervical Spine: Cervical spine tenderness Thoracic/Lumbar Spine: thoracic spinal tenderness and lumbar spinal tenderness Skin General skin exam: no rashes or lesions noted and dry skin Neuro General: oriented to person, oriented to place and oriented to time Cranial nerves: Yes Equal, round and reactive pupils present Speech: No Abnormal speech present Gait exam (Neuro): Normal gait present Extrem Right upper extremity: full ROM Left upper extremity: full ROM Right lower extremity: full ROM; no edema Left lower extremity: full ROM; no edema Psych Mental Status: mental status grossly normal Speech and movement: Normal speech and movement present Affect: normal affect Attitude: cooperative Thought process: Normal thought process present Coding Level of Care Code Est Pt Level 4 (03373) Diagnoses Severe persistent asthma, unspecified whether complicated J45.50 Asthma complication type: unspecified Leg cramping R25.2 Familial hypercholesterolemia E78.01 Hyperlipidemia type: familial hypercholesterolemia Class 1 obesity with serious comorbidity and body mass index (BMI) of 34.0 to 34.9 in adult, unspecified obesity type E66.811; Z68.34 Obesity type: unspecified obesity type Obesity classification: adult class 1 (BMI 30 - 34.9) Serious obesity comorbidity presence: with serious comorbidity Body mass index: BMI 34.0-34.9 Hypothyroidism, unspecified type E03.9 Hypothyroidism type: unspecified Environmental allergies Z91.09 Asthma-COPD overlap syndrome J44.9 Hypertension, unspecified type I10 Hypertension type: unspecified CESPEDES (dyspnea on exertion) R06.00 Stenosis of carotid artery, unspecified laterality I65.29 Laterality: unspecified laterality Time Spent (min) 37 Assessment & Plan Assessment & Plan (1) Severe persistent asthma: Code(s): J45.50 - Severe persistent asthma, uncomplicated Category: Medical Qualifiers: Asthma complication type: unspecified Qualified Code(s): J45.50 - Severe persistent asthma, uncomplicated (2) Leg cramping: Code(s): R25.2 - Cramp and spasm Category: Medical (3) Hyperlipidemia: Code(s): E78.5 - Hyperlipidemia, unspecified Category: Medical Qualifiers: Hyperlipidemia type: familial hypercholesterolemia Qualified Code(s): E78.01 - Familial hypercholesterolemia (4) Obesity: Code(s): E66.9 - Obesity, unspecified Category: Medical Qualifiers: Obesity type: unspecified obesity type Obesity classification: adult class 1 (BMI 30 - 34.9) Serious obesity comorbidity presence: with serious comorbidity Body mass index: BMI 34.0-34.9 Qualified Code(s): E66.811 - Obesity, class 1; Z68.34 - Body mass index [BMI] 34.0-34.9, adult (5) Hypothyroidism: Code(s): E03.9 - Hypothyroidism, unspecified Category: Medical Qualifiers: Hypothyroidism type: unspecified Qualified Code(s): E03.9 - Hypothyroidism, unspecified (6) Environmental allergies: Code(s): Z91.09 - Other allergy status, other than to drugs and biological substances Category: Medical (7) Asthma-COPD overlap syndrome: Code(s): J44.9 - Chronic obstructive pulmonary disease, unspecified Category: Medical (8) Hypertension: Code(s): I10 - Essential (primary) hypertension Category: Medical Qualifiers: Hypertension type: unspecified Qualified Code(s): I10 - Essential (primary) hypertension (9) CESPEDES (dyspnea on exertion): Code(s): R06.00 - Dyspnea, unspecified Category: Medical (10) Carotid stenosis: Code(s): I65.29 - Occlusion and stenosis of unspecified carotid artery Category: Medical Qualifiers: Laterality: unspecified laterality Qualified Code(s): I65.29 - Occlusion and stenosis of unspecified carotid artery Plan The patient's treatment plan includes increasing baclofen to three times daily for more effective management of muscle spasms and chronic pain. Lorazepam will be used as needed primarily at bedtime to avoid potential sedation during daytime activities. The patient is also on baclofen and gabapentin regimens. The patient is encouraged to monitor for any adverse effects when modifying these regimens and to continue with regular follow-up evaluations for emphysema. Emphasis was placed on judicious use of his current medication to prevent dependency on lorazepam and ensure optimal daily function. Continue hydrochlorothiazide 12.5 mg and enalapril 10 mg daily. Encouraged low-salt diet. Continue breathing treatment as ordered. Levothyroxine 75 mcg ongoing, obtain labs raul we will advise when resulted. The patient is taking alirocumab 150 mg q 14 days for cholesterol management, unable to tolerate statins due to severe muscle aches. Reinforced low-cholesterol diet and activity as tolerated. Continue aspirin 81 mg for carotid stenosis. The patient to follow in the 3 months for chronic conditions. Patient was informed and verbally consented to the use of an ambient scribe for clinic note documentation during this visit. Orders: Orders Lipid Panel 06/09/24 E03.9 - Hypothyroidism, unspecified, E66.9 - Obesity, unspecified, E78.5 - Hyperlipidemia, unspecified, F41.9 - Anxiety disorder, unspecified, I10 - Essential (primary) hypertension, I65.29 - Occlusion and stenosis of unspecified carotid artery, J44.9 - Chronic obstructive pulmonary disease, unspecified, J45.50 - Severe persistent asthma, uncomplicated, R06.00 - Dyspnea, unspecified, R09.89 - Other specified symptoms and signs involving the circulatory and respiratory systems Glucose Fasting 06/09/24 E03.9 - Hypothyroidism, unspecified, E66.9 - Obesity, unspecified, E78.5 - Hyperlipidemia, unspecified, F41.9 - Anxiety disorder, unspecified, I10 - Essential (primary) hypertension, I65.29 - Occlusion and stenosis of unspecified carotid artery, J44.9 - Chronic obstructive pulmonary disease, unspecified, J45.50 - Severe persistent asthma, uncomplicated, R06.00 - Dyspnea, unspecified, R09.89 - Other specified symptoms and signs involving the circulatory and respiratory systems Vitamin D 25-OH Total 06/09/24 E03.9 - Hypothyroidism, unspecified, E66.9 - Obesity, unspecified, E78.5 - Hyperlipidemia, unspecified, F41.9 - Anxiety disorder, unspecified, I10 - Essential (primary) hypertension, I65.29 - Occlusion and stenosis of unspecified carotid artery, J44.9 - Chronic obstructive pulmonary disease, unspecified, J45.50 - Severe persistent asthma, uncomplicated, R06.00 - Dyspnea, unspecified, R09.89 - Other specified symptoms and signs involving the circulatory and respiratory systems TSH reflex Free T4 06/09/24 E03.9 - Hypothyroidism, unspecified, E66.9 - Obesity, unspecified, E78.5 - Hyperlipidemia, unspecified, F41.9 - Anxiety disorder, unspecified, I10 - Essential (primary) hypertension, I65.29 - Occlusion and stenosis of unspecified carotid artery, J44.9 - Chronic obstructive pulmonary disease, unspecified, J45.50 - Severe persistent asthma, uncomplicated, R06.00 - Dyspnea, unspecified, R09.89 - Other specified symptoms and signs involving the circulatory and respiratory systems Complete Blood Count Auto Diff 3 Months E03.9 - Hypothyroidism, unspecified, E66.9 - Obesity, unspecified, E78.5 - Hyperlipidemia, unspecified, F41.9 - Anxiety disorder, unspecified, G47.30 - Sleep apnea, unspecified, I10 - Essential (primary) hypertension, I65.29 - Occlusion and stenosis of unspecified carotid artery, J44.9 - Chronic obstructive pulmonary disease, unspecified, J45.50 - Severe persistent asthma, uncomplicated, R06.00 - Dyspnea, unspecified, R09.89 - Other specified symptoms and signs involving the circulatory and respiratory systems Comprehensive [place]. Panel Fast 3 Months E03.9 - Hypothyroidism, unspecified, E66.9 - Obesity, unspecified, E78.5 - Hyperlipidemia, unspecified, F41.9 - Anxiety disorder, unspecified, G47.30 - Sleep apnea, unspecified, I10 - Essential (primary) hypertension, I65.29 - Occlusion and stenosis of unspecified carotid artery, J44.9 - Chronic obstructive pulmonary disease, unspecified, J45.50 - Severe persistent asthma, uncomplicated, R06.00 - Dyspnea, unspecified, R09.89 - Other specified symptoms and signs involving the circulatory and respiratory systems UA CC w/rflx Micro + Cult 3 Months E03.9 - Hypothyroidism, unspecified, E66.9 - Obesity, unspecified, E78.5 - Hyperlipidemia, unspecified, F41.9 - Anxiety disorder, unspecified, G47.30 - Sleep apnea, unspecified, I10 - Essential (primary) hypertension, I65.29 - Occlusion and stenosis of unspecified carotid artery, J44.9 - Chronic obstructive pulmonary disease, unspecified, J45.50 - Severe persistent asthma, uncomplicated, R06.00 - Dyspnea, unspecified, R09.89 - Other specified symptoms and signs involving the circulatory and respiratory systems Complete Blood Count Auto Diff 06/09/24 E03.9 - Hypothyroidism, unspecified, E66.9 - Obesity, unspecified, E78.5 - Hyperlipidemia, unspecified, F41.9 - Anxiety disorder, unspecified, I10 - Essential (primary) hypertension, I65.29 - Occlusion and stenosis of unspecified carotid artery, J44.9 - Chronic obstructive pulmonary disease, unspecified, J45.50 - Severe persistent asthma, uncomplicated, R06.00 - Dyspnea, unspecified, R09.89 - Other specified symptoms and signs involving the circulatory and respiratory systems Comprehensive [place]. Panel Fast 06/09/24 E03.9 - Hypothyroidism, unspecified, E66.9 - Obesity, unspecified, E78.5 - Hyperlipidemia, unspecified, F41.9 - Anxiety disorder, unspecified, I10 - Essential (primary) hypertension, I65.29 - Occlusion and stenosis of unspecified carotid artery, J44.9 - Chronic obstructive pulmonary disease, unspecified, J45.50 - Severe persistent asthma, uncomplicated, R06.00 - Dyspnea, unspecified, R09.89 - Other specified symptoms and signs involving the circulatory and respiratory systems UA CC w/rflx Micro + Cult 06/09/24 E03.9 - Hypothyroidism, unspecified, E66.9 - Obesity, unspecified, E78.5 - Hyperlipidemia, unspecified, F41.9 - Anxiety disorder, unspecified, I10 - Essential (primary) hypertension, I65.29 - Occlusion and stenosis of unspecified carotid artery, J44.9 - Chronic obstructive pulmonary disease, unspecified, J45.50 - Severe persistent asthma, uncomplicated, R06.00 - Dyspnea, unspecified, R09.89 - Other specified symptoms and signs involving the circulatory and respiratory systems Free T4 (Free Thyroxine) 06/09/24 E03.9 - Hypothyroidism, unspecified, E66.9 - Obesity, unspecified, E78.5 - Hyperlipidemia, unspecified, F41.9 - Anxiety disorder, unspecified, I10 - Essential (primary) hypertension, I65.29 - Occlusion and stenosis of unspecified carotid artery, J44.9 - Chronic obstructive pulmonary disease, unspecified, J45.50 - Severe persistent asthma, uncomplicated, R06.00 - Dyspnea, unspecified, R09.89 - Other specified symptoms and signs involving the circulatory and respiratory systems Lipid Panel 3 Months E03.9 - Hypothyroidism, unspecified, E66.9 - Obesity, unspecified, E78.5 - Hyperlipidemia, unspecified, F41.9 - Anxiety disorder, unspecified, G47.30 - Sleep apnea, unspecified, I10 - Essential (primary) hypertension, I65.29 - Occlusion and stenosis of unspecified carotid artery, J44.9 - Chronic obstructive pulmonary disease, unspecified, J45.50 - Severe persistent asthma, uncomplicated, R06.00 - Dyspnea, unspecified, R09.89 - Other specified symptoms and signs involving the circulatory and respiratory systems TSH reflex Free T4 3 Months E03.9 - Hypothyroidism, unspecified, E66.9 - Obesity, unspecified, E78.5 - Hyperlipidemia, unspecified, F41.9 - Anxiety disorder, unspecified, G47.30 - Sleep apnea, unspecified, I10 - Essential (primary) hypertension, I65.29 - Occlusion and stenosis of unspecified carotid artery, J44.9 - Chronic obstructive pulmonary disease, unspecified, J45.50 - Severe persistent asthma, uncomplicated, R06.00 - Dyspnea, unspecified, R09.89 - Other specified symptoms and signs involving the circulatory and respiratory systems Vitamin D 25-OH Total 3 Months E03.9 - Hypothyroidism, unspecified, E66.9 - Obesity, unspecified, E78.5 - Hyperlipidemia, unspecified, F41.9 - Anxiety disorder, unspecified, G47.30 - Sleep apnea, unspecified, I10 - Essential (primary) hypertension, I65.29 - Occlusion and stenosis of unspecified carotid artery, J44.9 - Chronic obstructive pulmonary disease, unspecified, J45.50 - Severe persistent asthma, uncomplicated, R06.00 - Dyspnea, unspecified, R09.89 - Other specified symptoms and signs involving the circulatory and respiratory systems Free T4 (Free Thyroxine) 3 Months E03.9 - Hypothyroidism, unspecified, E66.9 - Obesity, unspecified, E78.5 - Hyperlipidemia, unspecified, F41.9 - Anxiety disorder, unspecified, G47.30 - Sleep apnea, unspecified, I10 - Essential (primary) hypertension, I65.29 - Occlusion and stenosis of unspecified carotid artery, J44.9 - Chronic obstructive pulmonary disease, unspecified, J45.50 - Severe persistent asthma, uncomplicated, R06.00 - Dyspnea, unspecified, R09.89 - Other specified symptoms and signs involving the circulatory and respiratory systems Glucose Fasting 3 Months E03.9 - Hypothyroidism, unspecified, E66.9 - Obesity, unspecified, E78.5 - Hyperlipidemia, unspecified, F41.9 - Anxiety disorder, unspecified, G47.30 - Sleep apnea, unspecified, I10 - Essential (primary) hypertension, I65.29 - Occlusion and stenosis of unspecified carotid artery, J44.9 - Chronic obstructive pulmonary disease, unspecified, J45.50 - Severe persistent asthma, uncomplicated, R06.00 - Dyspnea, unspecified, R09.89 - Other specified symptoms and signs involving the circulatory and respiratory systems Medications: Changed From lorazepam 1 mg PO Q6H PRN 120 tabs 1RF anxiety To lorazepam 1 mg PO BEDTIME PRN 30 tabs 0RF anxiety
--- OUTSIDE RECORDS SUMMARY | 2024-06-08 09:17 | XMS_ITS | Data Portability ---
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 He will consider this. [email or web address] Not available 09/30/2023 10:03:08 06/01/2024 06/01/2024 68-year-old male with asymmetric hearing loss presents for follow up of asymmetric hearing loss. MRI brain/IAC 07/14/2023 was negative for retrocochlear pathology. Bilateral TMs are intact with well aerated middle ear spaces. Audiometric testing demonstrated essentially stable asymmetric SNHL. Masking techniques recommended for tinnitus. Medical clearance was provided today. We will continue to observe and plan for yearly audiometric testing, or sooner with any changes in his hearing, vertigo, or worsening tinnitus. [email or web address] Not available 06/01/2024 09:49:02 06/01/2024 06/01/2024 Follow up with referring provider.He is a candidate for hearing aids at this time but he is not interested in pursuing this option. Recommend to continue annual hearing test. He knows to come in sooner if any sudden changes occur. [email or web address] Not available 06/01/2024 09:07:03 Plan of Treatment Reminders Order Date Submit Date Provider Last Modified By Organization Details Last Modified Time Details Appointments Hearing Test 2025 11:00A M Hearing Test Not available Not available Not available Establish ed 15 2025 11:30A M PATTI KING PA-C Not available Not available Not available Lab None recorded. Referral None recorded. Procedures None recorded. Surgeries None recorded. Imaging None recorded. Medication Orders None recorded. Patient TargetsNo targets recorded. Patient InstructionsNo instructions recorded. Reason for Referral None Reported. Results Created Date Observation Date Name Description Value Unit Range Abnormal Flag Note LastModifiedBy Organization Detail LastModifiedTime 09/29/1905/21/2023 imagi ng/di nancios tic resul t No observ ation record ed. [email or web address] Not Available 19:33:47 09/29/19 24 05/21/2023 audio gram No observ ation record ed. [email or web address] Not Available 19:34:06 06/02/19 audio gram No observ ation record ed. BARCODE Not Available 2024 11:02:51 Result Notes None recorded. 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 2023 Psychogen ic dysphagia , including 'globus hystericu s'; Note: Date Diagnosed : 04/14/2023 10:50 AM (F45.8) Not Available [facility] 4 02:19:13 Seborrhei c dermatiti s 85914702 Active 2023 Seborrhei c dermatiti s, unspecifi ed; Note: Date Diagnosed : 05/21/2023 2:30 PM (L21.9) Not Available [facility] 02:19:29 Temporoma ndibular joint disorder 96023605 Active 2023 Other specified disorders of temporoma ndibular joint; Note: Date Diagnosed : 05/21/2023 4:31 PM (M26.69) Not Available [facility] 02:19:41 Sensorine ural hearing loss of bilateral ears 047613906 Active 2023 Sensorine ural hearing loss, bilateral ; Note: Date Diagnosed : 05/21/2023 2:00 PM (H90.3) Not Available [facility] 02:19:41 Problem Notes None recorded. Procedures Surgical History Date Name Laterality Status Provider Name and Address Organization Details Recorded Time 06/01/2024 Comp Audio with Tymps (75410 & 09720) completed ROCÍO FRANCISCO, [address], [address], [facility] 06/01/2024 08:49:50 Imaging Results Imaging Date Name Status LastModified by Organiz ation Details LastModified Time 05/21/2023 imaging/diagno stic result completed Information not available 09/29/2023 19:33:47 05/21/2023 audiogram completed Information not available 09/29/2023 19:34:06 06/01/2024 audiogram completed BARCODE Information no t available 06/01/2024 11:02:51 Procedure Notes None recorded. Medical Equipment None Reported. Medications Name Sig Start Date Stop Date Status Note LastModified by Organization Details LastModified Time enalapril maleate 20 mg tablet TAKE 1 TABLET (20MG) BY MOUTH DAILY active Not Available Not Available Not Available prednisone 20 mg tablet TAKE 2 TABLETS BY MOUTH ONCE DAILY FOR 5 DAYS active Not Available Not Available No t Available aspirin 81 mg tablet,delay ed release [...] mg capsule TAKE 1 CAPSULE BY MOUTH 3 TIMES A DAY active Not Available Not Available Not Available mupirocin 2 % topical ointment APPLY SPARINGLY 3 TIMES A DAY AFTER WARM COMPRESS X 10-15 MINUTES active Not Available Not Available No t Available lorazepam 1 mg tablet TAKE 1 TABLET BY MOUTH EVERY 6 HOURS NEEDED FOR ANXIETY active Not Available Not Available No t Available chlorhexidin e gluconate 0.12 % mouthwash SWISH 15ML BUCCALLY TWICE A DAY, SPIT DO NOT SWALLOW active Not Available Not Available No t Available hydrochlorot hiazide 12.5 mg tablet TAKE 1 TABLET BY MOUTH EVERY DAY active Not Available Not Available No t Available budesonide-f ormoterol HFA 160 mcg-4.5 mcg/actuatio n aerosol inhaler INHALE 2 PUFFS TWICE A DAY active Not Available Not Available No t Available Stiolto Respimat 2.5 mcg-2.5 mcg/actuatio n solution for inhalation INHALE 2 PUFFS BY MOUTH ONCE DAILY active Not Available Not Available No t Available Praluent Pen 150 mg/mL subcutaneous pen injector 150 MG SUBCUTANEOU SLY EVERY 14 DAYS active Not Available Not Available No t Available Repatha SureClick 140 mg/mL subcutaneous pen injector INJECT 140 MG SUBCUTANEOU SLY EVERY 2 WEEKS active Not Available Not Available No t Available Vitals Date Recorded Body height Body mass index (BMI) Body weight Provider Name and Address Organization Details Last Updated DateTime 06/01/2024 172.72 cm 32.7 kg/m2 58991.36 g Cass Willis [place] - [facility] 06/01/2024 09:04:46 Date Recorded Body height Body mass index (BMI) Body weight Provider Name and Address Organization Details Last Updated DateTime 09/30/2023 172.72 cm 32.7 kg/m2 87468.36 g Cass Willis [place] - [facility] 09/30/2023 09:30:59 Social History None recorded. Functional Status None recorded. Mental Status None recorded. Family History Nothing Reported. Medical History No medical history recorded. Gynecological HistoryNo gynecological history recorded. Obstetrics History GPAL:G 0 P 0 0 0 0 Past Encounters Encounter ID Performer Location Encounter Start Date Encounter Closed Date Diagnosis/Indication Diagnosis SNOMED-CT Code Diagnosis ICD10 Code Diagnosis Note [id number] JOE KLINE MD [facility] [address] [place] [address] 09/30/2023 09:19:22 09/30/2023 09:52:56 Sensorineural hearing loss of bilateral ears 326969517 H90.3 Bilateral tinnitus 03534 36396 102 H93.13 [id number] DOMONIQUE MEDINA MD [facility] [address] [place] [address] 06/01/2024 08:39:59 06/01/2024 11:22:43 Sensorineural hearing loss of bilateral ears 683823365 H90.3 Bilateral tinnitus 87227 48326 102 H93.13 [id number] NADIYA ZAMORA [facility] [address] [place] [address] 06/01/2024 08:49:24 06/01/2024 09:30:53 Sensorineural hearing loss of bilateral ears 030954774 H90.3 Audiologic al evaluation results:Ri ght ear:{{Norm al sloping* M ild Modera te Moderat sky-severe Severe Pr ofound Nor mal auditory thresholds }} to {{mild mod erate* mod erately-se kaylin sever e profound with}} {{sensorin eural hearing loss with* cond uctive hearing loss with mixed hearing loss with}} {{excellen t* good fa ir poor no t measurable }} word recognitio n.Left ear:{{Norm al sloping* M ild Modera te Moderat sky-severe Severe Pr ofound Nor mal auditory thresholds }} to {{mild mod erate* mod erately-se kaylin sever e profound with}} {{sensorin eural hearing loss with* cond uctive hearing loss with mixed hearing loss with}} {{excellen t* good fa ir poor no t measurable }} word recognitio n. ASymmetry with L>R at 1-2kHz and 6-8kHz.Tym panometry: Right Ear:{{Type A* Type As Type Ad Type C Type C, shallow & rounded Ty pe B Type B with large volume Cou ld not maintain a hermetic seal}}Left Ear:{{Type A* Type As Type Ad Type C Type C, shallow & rounded Ty pe B Type B with large volume Cou ld not maintain a hermetic seal}} Health Concerns Section Related Observation LastModified by Organization Detai ls LastModified Time None Recorded Concern Status LastModified by Organization Details LastModified Time None Recorded Advance Directives Directive None Recorded Payers Encounter Date Sequence Insurance Name Policy Number Policy Carmen Covered Member ID Carmen Member ID Guarantor Name 09/30/2023 1 [place] [employer] Girish Hale [id number] Girish Hale 09/30/2023 2 [place] Girish Hale [id number] Girish Hale 06/01/2024 1 MEDICARE B-[place]: [facility] [employer] Girish Hale [id number] Girish Hale 06/01/2024 2 [place] Girish Hale [id number] Girish Hale 06/01/2024 1 [place] [employer] Girish Hale [id number] Girish Hale 06/01/2024 2 [place] Girish Hale [id number] Girish Hale Notes Date Note Type Note Provider Name and Address Organization Details Recorded Time 09/30/2023 text/html 67-year-old male presents for review of MRI. He was evaluated back in May and audiometric testing demonstrated asymmetric hearing loss. History of occupational noise exposure. Denies otalgia, otorrhea, and changes in his hearing. Continues to have longstanding tinnitus bilaterally that is intermittent. JOE KLINE MD [address] [place] [address],[address], [address], [facility] 09/30/2023 18:00:16 06/01/2024 text/html 68-year-old male presents for follow up of asymmetric hearing loss. MRI brain/IAC 07/14/2023 was negative for retrocochlear pathology. Tinnitus is improved. Denies otalgia, otorrhea, or changes in his hearing. He is considering hearing aids. History of occupational noise exposure. DOMONIQUE ARMSTRONG MD [address] [place] [address],[address], [address], [facility] - [facility] 06/01/2024 12:14:40 OBGyn Episode No OBEpisode recorded.
== END 2024-06-08 10:01 | disposition home or self-care (01) ==
DX: J45.50 Severe persistent asthma, uncomplicated (principal); E66.811 Obesity, class 1; Z68.34 Body mass index [BMI] 34.0-34.9, adult; J44.9 Chronic obstructive pulmonary disease, unspecified; R25.2 Cramp and spasm; E78.01 Familial hypercholesterolemia; E03.9 Hypothyroidism, unspecified; Z91.09 Other allergy status, other than to drugs and biological substances; I10 Essential (primary) hypertension; R06.00 Dyspnea, unspecified; I65.29 Occlusion and stenosis of unspecified carotid artery

== ENCOUNTER → 2024-06-08 08:52 | Outpatient (BNVA) | payer MEDICARE, MEDICAID, SELFPAY | PROVIDERS: PCP Internal Medicine | DX: J45.50 Severe persistent asthma, uncomplicated (principal); R25.2 Cramp and spasm; E78.01 Familial hypercholesterolemia; E66.811 Obesity, class 1; Z68.34 Body mass index [BMI] 34.0-34.9, adult; E03.9 Hypothyroidism, unspecified; J44.9 Chronic obstructive pulmonary disease, unspecified; I10 Essential (primary) hypertension; R06.00 Dyspnea, unspecified; I65.29 Occlusion and stenosis of unspecified carotid artery; Z91.09 Other allergy status, other than to drugs and biological substances | CPT/HCPCS: 99212 ==

== ENCOUNTER 2024-06-09 08:46 | Outpatient (REF) | payer MEDICARE, MEDICAID, SELFPAY ==
[2024-06-09 10:03] LABS: MANUAL DIFF FLAG NO
[2024-06-09 10:10] LABS: Basophils Absolute Auto 0.1 X10*3/uL (0.0-0.2); Basophils Percent Auto 0.8 % (0-2); Eosinophils Absolute Auto 0.1 X10*3/uL (0.0-0.4); Eosinophils Percent Auto 1.5 % (0-4); Hematocrit 44.9 % (42.0-52.0); Hemoglobin 15.3 g/dl (14.0-18.0); Imm Gran Abs Auto 0.05 X10*3/uL (0.00-0.03); Imm Gran Pct Auto 0.8 % (0.0-0.4); Lymphocytes Absolute Auto 2.1 X10*3/uL (1.2-4.9); Lymphocytes Percent Auto 35.3 % (20-40); Mean Corpuscular HGB Conc 34.1 g/dl (31.0-36.0); Mean Corpuscular Hemoglobin 30.8 pg (27.0-33.0); Mean Corpuscular Volume 90.5 fL (80.0-98.0); Mean Platelet Volume 10.5 fL (9.4-12.4); Monocytes Absolute Auto 0.6 X10*3/uL (0.1-1.2); Monocytes Percent Auto 10.6 % (2-11); Neutrophils Absolute Auto 3.1 x10*3/uL (2.0-8.3); Platelet Count 210 X10*3/uL (160-400); Red Blood Count 4.96 X10*6/uL (4.60-5.80); Red Cell Distribution Width 13.5 % (11.0-16.0)
[2024-06-09 11:11] LABS: Alanine Aminotransferase 89 U/L (0-40); Albumin Level 4.5 g/dL (3.5-5.0); Alkaline Phosphatase 41 U/L (39-117); Anion Gap 12 (12-20); Aspartate Amino Transferase 48 U/L (5-37); Bilirubin Total 0.7 mg/dL (0.0-1.0); Blood Urea Nitrogen 17 mg/dL (9-16); Calcium 9.5 mg/dL (8.4-10.2); Carbon Dioxide 29 mmol/L (22-29); Chloride 104 mmol/L (96-108); Cholesterol 146 mg/dL (<200); Estimated Glomerular Filt Rate 40; Glucose Fasting 110 mg/dL (60-99); HDL Cholesterol 34 mg/dL (>40); LDL Cholesterol Calculated 65 mg/dL (<100); Potassium 4.4 mmol/L (3.3-5.1); Sodium 141 mmol/L (135-145); Total Protein 7.3 g/dL (6.5-8.0); Triglycerides 235 mg/dL (<150)
[2024-06-09 11:17] LABS: Free T4 (Free Thyroxine) 0.95 ng/dL (0.71-1.85); TSH reflex Free T4 2.69 uIU/mL (0.32-4.0); Vitamin D 25-OH Total 21.7 ng/mL (>30)
[2024-06-09 13:13] LABS: Appearance Urine Clear; Color Urine Yellow; Glucose Urine UA Negative (Negative); Leukocyte Esterase Urine Negative (Negative); Nitrite Urine Negative (Negative); PH 6.5 (5.0-9.0); Urine Blood Negative (Negative); Urine Ketones Negative (Negative); Urine Protein Negative (Neg-Trace)
== END 2024-06-09 08:47 | disposition home or self-care (01) ==
LOC: HO.HMGCLDS 08:46
DX: R06.00 Dyspnea, unspecified (principal); J45.50 Severe persistent asthma, uncomplicated; F41.9 Anxiety disorder, unspecified; E78.5 Hyperlipidemia, unspecified; R09.89 Other specified symptoms and signs involving the circulatory and respiratory systems; I65.29 Occlusion and stenosis of unspecified carotid artery; E66.9 Obesity, unspecified; E03.9 Hypothyroidism, unspecified; J44.9 Chronic obstructive pulmonary disease, unspecified; I10 Essential (primary) hypertension
CPT/HCPCS: 36415; 80053; 80061; 81003; 82306; 84439; 84443; 85025

== ENCOUNTER 2024-07-11 08:41 | Outpatient (AMB) | payer MEDICARE, MEDICAID, SELFPAY ==
--- NOTE | 2024-07-11 08:53 | MHC.OFFVIS ---
Vital Signs 07/11/24 08:54 Height 5 ft 8 in Weight 223 lb 1.725 oz BMI 33.9 BP 132/72 Blood Pressure Location Lt brachial Position Sitting Pulse 79 Pulse Source Monitor Intake Visit Reasons: 6m follow up Intake Note: 6 mth f/up Insurance Advisor Required: No Accompanied by: Self / Same As Patient Allergies meloxicam Adverse Reaction (Severe, Verified 06/08/24 09:23) Chest Pain rosuvastatin Adverse Reaction (Severe, Verified 06/08/24 09:23) Muscle cramps baclofen Adverse Reaction (Unknown, Verified 06/08/24 09:23) chest pain meperidine [From Demerol] Adverse Reaction (Verified 06/08/24 09:23) Nausea simvastatin [From Zocor] Adverse Reaction (Verified 06/08/24 09:23) Muscle Pain Medication List - Last Reconciled 07/11/24 by Conor Garcia MD albuterol sulfate 90 mcg/actuation 2 puffs inhalation Q4-6H PRN alirocumab (Praluent Pen) 150 mg subcut Q14D aspirin (Adult Aspirin Regimen) 81 mg PO DAILY baclofen 10 mg PO BID cholecalciferol (vitamin D3) 25 mcg PO DAILY enalapril maleate 20 mg PO DAILY esomeprazole magnesium 20 mg PO DAILY gabapentin 300 mg PO TID hydrochlorothiazide 12.5 mg PO DAILY levothyroxine 75 mcg PO DAILY lorazepam 1 mg PO BEDTIME PRN triamcinolone acetonide 0.5% 1 appl topical TID HPI Comments Details: 68-year-old gentleman here for follow-up. He had dyspnea on exertion and exertional chest tightness. He had echocardiography and stress test which did not show any significant abnormality. Given worsening chest tightness he was taken for cardiac catheterization. He was found to have no significant coronary artery disease. His filling pressures at rest were normal on right heart catheterization. He has dyspnea on exertion due to deconditioning and weight gain. He had carotid bruit and underwent carotid ultrasound which showed moderate right-sided carotid stenosis and mild left-sided carotid stenosis. He was on baby aspirin. He has statin intolerance and had tried different statins in the past. We again tried Crestor at 5 mg every other day but he developed significant muscle aches and could not tolerate Crestor. We were able to start him on Zetia but despite using Zetia his LDL cholesterol is 135. Given carotid stenosis is target is less than 70. 09/04/22: He returns for follow-up. He had blood workup in July 2022. Total cholesterol 147, triglyceride 159, LDL 78 and HDL 38. He is currently taking Repatha 140 mg every 2 weeks. Is saying when he uses Repatha the he gets itching at the site. No rash on the body or breathing issues or lip swelling. This is not a true allergic reaction. He continues to get shortness of breath with exertion specially going up hill. He is saying he does not walk and does not do physical exercise in his day-to-day life. He has no chest discomfort. Blood pressure control is good. 01/06/2024: He is here for follow-up. He is saying he is unable to afford PCSK9 because insurance is not covering anymore since event to Medicare part D. He has familial hyperlipidemia and is statin intolerant. He also has carotid stenosis by ultrasound. He is high-risk for future stroke and cardiovascular events and we will look into prior authorization again because this is on a valid option which has brought his LDL cholesterol from I90s to 60s. 07/11/2024: He is here for follow-up. He has been on PCSK9 with LDL cholesterol 65. His LDL level was more than 200 in 2018. Continues to have dyspnea on exertion. He apparently had cardiopulmonary exercise stress test through pulmonology and was told that he needs to exercise. This is in line with what I have told him before that he has deconditioning. He also has been noticing some breathing issues after taking baclofen and gabapentin. I think these symptoms are unrelated although some of his somnolence and tiredness after medications could be related to these medications. [facility] Medical History Obesity Hypothyroidism Screening for prostate cancer Screening for diabetes mellitus Back pain Elevated cholesterol GERD (gastroesophageal reflux disease) Cook esophagus Hypertension CESPEDES (dyspnea on exertion) Surgical History (Reviewed 07/11/24 @ 08:57 by Rebeka Armas [facility]) Hx of cardiac catheterization History of esophagogastroduodenoscopy (EGD) Hx of colonoscopy Family History Father CVD (cardiovascular disease) Diabetes Myocardial infarct Mother Breast cancer Sister Colon cancer Son Substance use disorder Social History (Reviewed 07/11/24 @ 08:57 by Rebeka Armas [facility]) Housing: House Are you a primary child care counselor to a significant other at home: No Do you presently have visiting nurse or other home services: No Alcohol intake: former Patient Tobacco Use Status: Former Tobacco user Tobacco use type: Cigarette Years Smoked: 30 +/- e-Cigarette/Vaping Use: Never Used Second Hand Smoke Exposure: No service: No Current occupational status: retired and disabled Current occupation: left hand Cognitive needs: No Hearing needs: No Vision needs: Yes (glasses) Review of Systems Const Denies chills, Denies fatigue, Denies fever(s), Denies frequent falls, Denies weakness, Denies weight gain and Denies weight loss ENT Denies dizziness Card Denies chest pain, Denies leg edema, Denies lightheadedness, Denies palpitations, Denies dyspnea and Denies dyspnea on exertion Resp Denies cough, Denies dyspnea and Denies dyspnea on exertion GI Denies hematochezia Musc Denies abnormal gait, Denies muscle weakness, Denies numbness, Denies radiating pain into limb and Denies tingling Neuro Denies abnormal gait, Denies dizziness, Denies frequent falls, Denies numbness, Denies tingling and Denies weakness Endo Denies fatigue and Denies palpitations Physical Exam Vital Signs: Last Vital Signs Pulse 79 07/11/24 08:54 BP 132/72 07/11/24 08:54 BMI result Body Mass Index 33.9 GENERAL APPEARANCE: in no acute distress. NECK/THYROID: Left carotid bruit, no jugular venous distention. SKIN: no suspicious lesions, warm and dry. HEART: no murmurs, regular rate and rhythm, S1, S2 normal. LUNGS: clear to auscultation bilaterally. ABDOMEN: normal, bowel sounds present, soft, nontender, nondistended. EXTREMITIES: no clubbing, cyanosis, or edema. PERIPHERAL PULSES: equal. NEUROLOGIC: nonfocal, alert and oriented. PSYCH: mood/affect full range. Office Procedures EKG Details: Normal sinus rhythm 79 beats per minute, normal axis, can not rule out inferior infarct, QTC 424 milliseconds. [id number]-[id number], Complete Assessment & Plan Assessment & Plan (1) CESPEDES (dyspnea on exertion): Code(s): R06.00 - Dyspnea, unspecified Category: Medical (2) Hypertension: Code(s): I10 - Essential (primary) hypertension Category: Medical Qualifiers: Hypertension type: unspecified Qualified Code(s): I10 - Essential (primary) hypertension (3) Hyperlipidemia: Code(s): E78.5 - Hyperlipidemia, unspecified Category: Medical Qualifiers: Hyperlipidemia type: familial hypercholesterolemia Qualified Code(s): E78.01 - Familial hypercholesterolemia Plan [age] year gentleman who is here for follow-up. He has background history of hyperlipidemia and is currently on PCSK9. LDL cholesterol has improved significantly to 65. He has dyspnea on exertion with activities. This is a chronic issue for him. Clinically not in heart failure. I have advised him to repeat an echocardiogram to assess for any wall motion abnormalities. His EKGs has inferior Q-waves which have evolved compared to last EKG. We will look for any wall motion abnormalities and diastolic dysfunction. Blood pressure well controlled. Continue PCSK9 inhibitors for familiar hyperlipidemia. Thank you for allowing me to participate in the care of your patient. Please feel free to contact me if you have any questions. Orders: Orders CA echo transthorac w con Today R06.00 - Dyspnea, unspecified Coding Level of Care Code Est Pt Level 4 (37354) Diagnoses CESPEDES (dyspnea on exertion) R06.00 Hypertension, unspecified type I10 Hypertension type: unspecified Familial hypercholesterolemia E78.01 Hyperlipidemia type: familial hypercholesterolemia CPT Codes EKG - CPT: 05116-Trnkiqclnirulzsjd, Complete ([id number])
[2024-07-11 08:54] VITALS: BP 132/72; PULSE 79; BMI 33.9
--- OUTSIDE RECORDS SUMMARY | 2024-07-11 09:03 | XMS_ITS | Data Portability ---
Author Organization [place] - [facility], Allergy Address [address] [address] Care Team Providers Care Records Officer Name Role Phone KOKO BRANDON Primary Care [...] candidate for amplification. He will consider this. [email or web address] Not available 09/30/2023 10:03:08 06/01/2024 06/01/2024 68-year-old [...] in his hearing, vertigo, or worsening tinnitus. [email or web address] Not available 06/01/2024 09:49:02 06/01/2024 06/01/2024 Follow [...] Organization Details Recorded Time Ulcerativ e rhinitis 62483889 Active 2023 Nasal mucositis (ulcerati ve); Note: Date Diagnosed : 03/20/2023 9:49 AM (J34.81) Not Available [facility] 4 02:18:48 Bilateral tinnitus 16758469427 02 Active 2023 Tinnitus, bilateral ; Note: Date Diagnosed : 05/21/2023 2:27 PM (H93.13) Not Available [facility] 4 02:18:58 Somatofor m disorder 78788876 Active 2023 Psychogen ic dysphagia , including 'globus hystericu s'; Note: Date Diagnosed : 04/14/2023 10:50 AM (F45.8) Not Available [facility] 4 02:19:13 Seborrhei c dermatiti s 51272564 Active 2023 Seborrhei c dermatiti s, unspecifi ed; Note: Date Diagnosed : 05/21/2023 2:30 PM (L21.9) Not Available [facility] 02:19:29 Temporoma ndibular joint disorder 06020007 Active 2023 Other specified disorders of temporoma ndibular joint; Note: Date Diagnosed : 05/21/2023 4:31 PM (M26.69) Not Available [facility] 4 02:19:41 Sensorine ural hearing loss of bilateral ears 707358850 Active 2023 Sensorine ural hearing loss, bilateral ; Note: Date Diagnosed : 05/21/2023 2:00 PM (H90.3) Not Available [facility] 4 02:19:41 Problem Notes None recorded. Procedures Surgical History Date Name Laterality Status Provider Name and Address Organization Details Recorded Time 06/01/2024 Comp Audio with Tymps - 86800 & 14216 completed ROCÍO FRANCISCO, [address],[place] [address], [place], [address], [facility] - [facility] 06/01/2024 08:49:50 Imaging Results None recorded. Procedure Notes None recorded. Medical Equipment None [...] Updated DateTime 06/01/2024 172.72 cm 32.7 kg/m2 83650.36 g Cass Willis [facility] 06/01/2024 09:04:46 Date Recorded Body height Body mass index (BMI) Body weight Provider Name and Address Organization Details Last Updated DateTime 09/30/2023 172.72 cm 32.7 kg/m2 76837.36 g Cass Willis [facility] 09/30/2023 09:30:59 Social History None recorded. Functional Status None recorded. Mental Status None recorded. Family History Nothing Reported. Medical History No medical history recorded. Gynecological HistoryNo gynecological history recorded. Obstetrics History GPAL:G 0 P 0 0 0 0 Past Encounters Encounter ID Performer Location Encounter Start Date Encounter Closed Date Diagnosis/Indication Diagnosis SNOMED-CT Code Diagnosis ICD10 Code Diagnosis Note [id number] PATTI KING PA-C [facility] [address] [address] 09/30/2023 09:19:22 09/30/2023 09:52:56 Sensorineural hearing loss of bilateral ears 200769631 H90.3 Bilateral tinnitus 16607 46291 102 H93.13 [id number] PATTI KING PA-C [facility] [address] [address] 06/01/2024 08:39:59 06/01/2024 11:22:43 Sensorineural hearing loss of bilateral ears 785191156 H90.3 Bilateral tinnitus 50007 07621 102 H93.13 [id number] NADIYA ZAMORA [facility] [address] [address] 06/01/2024 08:49:24 06/01/2024 09:30:53 Sensorineural hearing loss of bilateral ears 105046554 H90.3 Audiologic al evaluation results:Ri ght ear:Normal sloping to moderate sensorineu ral hearing loss with excellent word recognitio n.Left ear:Normal sloping to moderate sensorineu ral hearing loss with excellent word recognitio n. ASymmetry with L>R at 1-2kHz and 6-8kHz.Tym panometry: Right Ear:Type ALeft Ear:Type A Health Concerns Section Related Observation LastModified by Organization Detai ls LastModified Time None Recorded Concern Status LastModified by Organization Details LastModified Time None Recorded Advance Directives Directive None Recorded Payers Insurance Date Sequence Insurance Name Policy Number Policy Carmen Covered Member ID Carmen Member ID Guarantor Name 06/01/2024 1 MEDICARE B-[place]: [employer] Girish Hale [id number] Girish Hale 06/01/2024 2 MEDICAID-[place]: [facility] Girish Hale [id number] Girish Hale Notes Date Note Type Note Provider Name and Address Organization Details Recorded Time 09/30/2023 text/html 67-year-old male presents for review of MRI. He was evaluated back in May and audiometric testing demonstrated asymmetric hearing loss. History of occupational noise exposure. Denies otalgia, otorrhea, and changes in his hearing. Continues to have longstanding tinnitus bilaterally that is intermittent. JOE KLINE MD [address] [place] [address], [phone], [facility] - [facility] 09/30/2023 18:00:16 06/01/2024 text/html 68-year-old male presents for follow up of asymmetric hearing loss. MRI brain/IAC 07/14/2023 was negative for retrocochlear pathology. Tinnitus is improved. Denies otalgia, otorrhea, or changes in his hearing. He is considering hearing aids. History of occupational noise exposure. DOMONIQUE ARMSTRONG MD [address] [place] [address], [phone], [facility] - [facility] 06/01/2024 12:14:40 OBGyn Episode No OBEpisode recorded.
== END 2024-07-11 09:17 | disposition home or self-care (01) ==
LOC: HO.HCS 08:42
PROVIDERS: PCP Internal Medicine; Visit Provider Internal Medicine Cardiovascular Disease
DX: R06.00 Dyspnea, unspecified (principal); I10 Essential (primary) hypertension; E78.01 Familial hypercholesterolemia
CPT/HCPCS: 93010; 99214

== ENCOUNTER → 2024-07-11 08:41 | Outpatient (BNVA) | payer MEDICARE, MEDICAID, SELFPAY | PROVIDERS: PCP Internal Medicine; Visit Provider Internal Medicine Cardiovascular Disease | DX: R06.00 Dyspnea, unspecified (principal); I10 Essential (primary) hypertension; E78.01 Familial hypercholesterolemia; Z79.899 Other long term (current) drug therapy; Z87.891 Personal history of nicotine dependence | CPT/HCPCS: 93005; 99212 ==

== ENCOUNTER → 2024-08-08 07:20 | Outpatient (BNV) | payer MEDICARE, MEDICAID, SELFPAY | PROVIDERS: Emergency Provider Emergency Medicine; Visit Provider Radiology Diagnostic Radiology | DX: M79.671 Pain in right foot (principal); M25.474 Effusion, right foot | CPT/HCPCS: 73630 ==

== ENCOUNTER 2024-08-08 07:27 | Emergency (ER) | payer MEDICARE, MEDICAID, SELFPAY ==
--- NOTE | ~2024-08-08 | XR_ITS ---
EXAMINATION: XR FOOT 3 OR MORE VIEWS RIGHT HISTORY: swelling and pain COMPARISON: There are no prior studies available for comparison. FINDINGS: Three views of the right foot are submitted. Osseous mineralization is normal. There is no fracture or dislocation. There is mild narrowing of the interphalangeal joints. The soft tissues are unremarkable. XR/XR foot RT min 3V IMPRESSION: No evidence of fracture of the right foot. Electronically signed by: Leroy Way MD 08/08/2024 08:34 AM EDT
[2024-08-08 07:39] VITALS: BP 141/86; PULSE 74; RESP 16; TEMP 36.6; O2SAT 97; BMI 33.0
--- NOTE | 2024-08-08 07:59 | ED_ITS ---
HPI - Extremity Injury (Lower) General Chief Complaint: Extremity Injury, Lower Stated Complaint: r great toe inj Time Seen by Provider: 08/08/24 07:57 Source: patient and RN notes reviewed Mode of arrival: ambulatory Limitations: no limitations History of Present Illness ED Provider: Anna Chavez PA-C HPI Narrative: This is a 68-year-old male, with a past medical history of hypertension, thyroid disease, who presents emergency department complaints of right great toe pain status post kicking a wall in his sleep on June 28, 2024. Patient reports that several days ago he was then standing on his tip toes and felt pain and swelling in his right great toe. Pain worsens with weight-bearing and with palpation. He states he has been using an ice pack to his toe which has provided him with some relief. No fevers or chills. No other complaints or concerns at this time. Onset (ago): month(s) Type of Injury: blunt Place: home Severity: moderate Relieving factors: cold therapy Exacerbating factors: weight bearing, movement and palpation Context: direct blow Associated symptoms: snap/pop sensation Other symptoms: none Related Data Home Medications ?Medication ?Instructions ?Recorded ?Confirmed esomeprazole magnesium 20 mg 20 mg PO DAILY 12/26/20 0 07/11/24 capsule,delayed release baclofen 10 mg tablet 10 mg PO BID 09/04/22 Previous Rx's ?Medication ?Instructions ?Recorded albuterol sulfate 90 mcg/actuation 2 puff inhalation Q 4-6H PRN 03/06/21 aerosol inhaler Wheezing #1 ea aspirin 81 mg tablet,delayed 81 mg PO DAILY #90 tabs 1 release (Adult Aspirin Regimen) triamcinolone acetonide 0.5 % 1 appl topical TID #15 g marilee 06/04/22 topical cream alirocumab 150 mg/mL subcutaneous 150 mg subcut Q14D # 2 mL 03/15/24 pen injector (Praluent Pen) levothyroxine 75 mcg tablet 75 mcg PO DAILY #90 tabs 0 03/23/24 hydrochlorothiazide 12.5 mg tablet 12.5 mg PO DAILY #9 0 tabs 03/24/24 lorazepam 1 mg tablet 1 mg PO BEDTIME PRN anxiety #30 06/08/24 tabs enalapril maleate 20 mg tablet 20 mg PO DAILY #90 tabs 06/22/24 gabapentin 300 mg capsule 300 mg PO TID #90 caps 06/27 cholecalciferol (vitamin D3) 25 25 mcg PO DAILY #90 ca ps 07/06/24 mcg (1,000 unit) capsule Allergies Allergy/AdvReac Type Severity Reaction Status Date / Time meloxicam AdvReac Severe Chest Pain Verified 08/08/24 07:40 rosuvastatin AdvReac Severe Muscle Verified 08/08/24 07:40 cramps meperidine (From Demerol) AdvReac Nausea Verified 08/08/24 07:40 simvastatin (From Zocor) AdvReac Muscle Pain Verified 08/08/24 07:40 Review of Systems Review of Systems: Yes all other systems are reviewed and are negative Constitutional: Constitutional: Reports as per HPI Eyes: Eyes: Reports as per HPI, Denies change in vision and Denies eye discharge ENT: Reports system reviewed and no additional complaints, except as documented, Reports as per HPI, Reports Normal hearing present and Denies facial pain Cardiovascular: Cardiovascular: Reports as per HPI and Denies chest pain Respiratory: Respiratory: Reports as per HPI and Denies cough Gastrointestinal: Gastrointestinal: Reports as per HPI, Reports no additional gastrointestinal complaints, Denies abdominal pain, Denies diarrhea, Denies nausea and Denies vomiting Genitourinary: Genitourinary: Reports as per HPI Musculoskeletal: Musculoskeletal: Reports no additional musculoskeletal complaints and Reports as per HPI Integumentary/Breasts: Skin/Breast: Reports system reviewed and no additional complaints, except as docu, Reports as per HPI, Reports erythema, Denies rash and Denies wounds Neurologic: Reports Normal hearing present Psychiatric: Psychiatric: Reports no additional psychiatric complaints and Reports as per HPI Endocrine: Endocrine: Reports no additional endocrine complaints and Reports as per HPI Hematologic/Lymphatic: Hematologic/Lymphatic: Reports no additional he matologic/lymphatic complaints and Reports as per HPI Allergic/Immunologic: Allergic/Immunologic: Reports no additional allergic/immunologic complaints and Reports as per HPI [facility] Past Medical History Medical History Obesity Hypothyroidism Screening for prostate cancer Screening for diabetes mellitus Back pain Elevated cholesterol GERD (gastroesophageal reflux disease) Cook esophagus Hypertension CESPEDES (dyspnea on exertion) Surgical History Hx of cardiac catheterization History of esophagogastroduodenoscopy (EGD) Hx of colonoscopy Family History Family History Father CVD (cardiovascular disease) Diabetes Myocardial infarct Mother Breast cancer Sister Colon cancer Son Substance use disorder Social History Social History Housing: House Are you a primary home care chaplain to a significant other at home: No Do you presently have visiting nurse or other home services: No Alcohol intake: former Patient Tobacco Use Status: Former Tobacco user Tobacco use type: Cigarette Years Smoked: 30 +/- e-Cigarette/Vaping Use: Never Used Second Hand Smoke Exposure: No Advance Directives: No Advance Directives Information Provided: Yes Do you have a plan to hurt others: No Plan service: No Current occupational status: retired and disabled Current occupation: left hand Cognitive needs: No Hearing needs: No Vision needs: Yes (glasses) Physical Exam Vital Signs: Vital Signs: Last Vital Signs Temp 97.8 F 08/08/24 09:52 Pulse 74 08/08/24 09:52 Resp 16 08/08/24 09:52 BP 141/86 H 08/08/24 09:52 Pulse Ox 97 08/08/24 09:52 O2 Del Method Room Air 08/08/24 09:52 BMI result Body Mass Index 33.0 Const: General: cooperative, comfortable and no acute distress Orientation/consciousness: patient oriented x3 Limitations: no limitations HEENT: Head: Yes normal to inspection, Yes normocephalic and Yes atraumatic Ears: hearing grossly normal bilaterally General nose exam: Normal external nose present Face and sinus: Yes normal facial exam Mouth: Normal oral and palatal mucosa present, oropharynx normal and moist mucous membranes Throat: Yes posterior oropharynx normal Eyes: General: appearance normal, both eyes and all related structures Eyelids: Yes eyelids normal Conjunctivae: conjunctivae normal Sclerae: sclerae normal Pupils: Equal, round and reactive pupils present EOM: EOMs intact bilaterally Neck: Neck: Yes normal visual inspection, Yes full ROM and Yes no lymphadenopathy Lymphatic: no lymphadenopathy noted Chest: Chest palpation & inspection: normal inspection of the chest Resp: Effort & Inspection: normal respiratory effort and able to speak in complete sentences Auscultation: clear to auscultation bilaterally Cardio: Rate: regular rate Rhythm: regular rhythm Heart sounds: S1 normal heart sound present and S2 normal heart sound present GI: Inspection: Yes normal to inspection Skin: General skin exam: no rashes or lesions noted Trauma: no lacerations or abrasions Wounds: no wounds Neuro: General: patient oriented x3 and moves all extremities Cranial nerves: Yes Equal, round and reactive pupils present and Yes Normal hearing present Extrem: Other: Right great toe with mild tenderness palpation throughout, slight ecchymosis seen. No overlying erythema or warmth. Full range of motion. Patient does have hard in mass on the plantar aspect of the foot, mildly tender, no surrounding erythema or warmth. No fluctuance. Strong DP pulse. Capillary refill less than 2 seconds. General: Yes normal to inspection Right upper extremity: normal to inspection Left upper extremity: normal to inspection Left lower extremity: normal to inspection Medical Decision Making Medical Decision Making MDM Narrative: This is a 68-year-old male, with a past medical history of hypertension, who presents emergency department with complaints of right great toe pain for the last month. On arrival, patient's blood pressure mildly elevated 141/86, all other vital signs within normal limits. He is speaking full sentences under no acute distress. He is ambulatory with steady gait. Patient with tenderness palpation along the right great toe, no overlying erythema or warmth. Slight bruising noted. He does have some hard and induration noted to be plantar aspect of the foot, he has full ROM of the digit and foot without difficulty. No overlying erythema or warmth. Will obtain x-ray to rule out any bony abnormalities. Differential diagnoses include fracture, contusion, sprain, strain >> x-rays reviewed with no acute findings. Discussed findings with patient. Given referral to Podiatry. Given strict return precautions. He understands and agrees with plan. Patient stable for discharge. Differential Diagnosis Differential Diagnoses: The differential diagnosis associated with the presentation includes See above Radiology Impression Discussion of test interpretation with radiology: I have reviewed the radiologist's reading. Radiologist Impression: FINDINGS: Three views of the right foot are submitted. Osseous mineralization is normal. There is no fracture or dislocation. There is mild narrowing of the interphalangeal joints. The soft tissues are unremarkable. XR/XR foot RT min 3V IMPRESSION: No evidence of fracture of the right foot. Electronically signed by: Leroy Way MD 08/08/2024 08:34 AM EDT RP Dictated By: Leroy Way MD Discharge Plan Discharge Clinical Impression: Contusion of toe, right Patient Disposition: Home, Self-Care Instructions: Foot Contusion (ED) Additional Instructions: You were seen in the emergency department due to right great toe pain. Your x-ray does not show any bony abnormalities. Please rest, ice, and elevate your toe as needed. You may follow-up with podiatry as needed. Ibuprofen and or Tylenol can be helpful for pain. If any new or worsening symptoms occur including but not limited to, swelling, pain, increased redness, please seek emergent care. Prescriptions: No Action albuterol sulfate 90 mcg/actuation HFA aerosol inhaler 2 puff inhalation Q4-6H PRN (Reason: Wheezing) Qty: 1 0RF Praluent Pen 150 mg/mL pen injector 150 mg subcut Q14D Qty: 2 4RF levothyroxine 75 mcg tablet 75 mcg PO DAILY Qty: 90 8RF hydrochlorothiazide 12.5 mg tablet 12.5 mg PO DAILY Qty: 90 3RF enalapril maleate 20 mg tablet 20 mg PO DAILY Qty: 90 8RF gabapentin 300 mg capsule 300 mg PO TID Qty: 90 2RF cholecalciferol (vitamin D3) 25 mcg (1,000 unit) capsule 25 mcg PO DAILY Qty: 90 3RF triamcinolone acetonide 0.5 % cream 1 appl topical TID Qty: 15 3RF esomeprazole magnesium 20 mg capsule,delayed release(DR/EC) 20 mg PO DAILY aspirin [Adult Aspirin Regimen] 81 mg tablet,delayed release (DR/EC) 81 mg PO DAILY Qty: 90 5RF baclofen 10 mg tablet 10 mg PO BID lorazepam 1 mg tablet 1 mg PO BEDTIME PRN (Reason: anxiety) Qty: 30 0RF Referrals: Heidi Aguilar DPM [Physician, Podiatry] Interventions: ED Discharge Assessment Last Done: 08/08/24 09:52 Discharge Date/Time: 08/08/24 09:55 Print Language: Anguillan
--- OUTSIDE RECORDS SUMMARY | 2024-08-08 08:10 | XMS_ITS | Data Portability ---
Author Organization [place] - [facility], All[facility] Address [address] [place] [address] Care Team Providers Care Fryer Operator Name Role Phone KOKOBRANDON Primary Care Provider Assessment Encounter Date Assessment [...] candidate for amplification. He will consider this. [email or web address] Not available 09/30/2023 10:03:08 06/01/2024 06/01/2024 68-year-old [...] in his hearing, vertigo, or worsening tinnitus. [email or web address] Not available 06/01/2024 09:49:02 06/01/2024 06/01/2024 Follow [...] Detail LastModifiedTime 09/29/19 24 05/21/2023 imagi ng/di nancios tic resul t No observ ation record ed. [email or web address] Not Available 19:33:47 09/29/19 24 05/21/2023 audio gram No observ ation record ed. [email or web address] Not Available 19:34:06 06/02/19 25 audio gram No observ ation record ed. [email or web address] Not Available 2024 11:02:51 Result Notes None recorded. Problems Name Problem SNOMED Code Status Onset Date Resolution Date Notes Provider Name and Address Organization Details Recorded Time Ulcerativ e rhinitis 42407729 Active 2023 Nasal mucositis (ulcerati ve); Note: Date Diagnosed : 03/20/2023 9:49 AM (J34.81) Not Available [facility] 4 02:18:48 Bilateral tinnitus 14991464868 02 Active 2023 Tinnitus, bilateral ; Note: Date Diagnosed : 05/21/2023 2:27 PM (H93.13) Not Available [facility] 4 02:18:58 Somatofor m disorder 55874556 Active 2023 Psychogen ic dysphagia , including 'globus hystericu s'; Note: Date Diagnosed : 04/14/2023 10:50 AM (F45.8) Not Available [facility] 4 02:19:13 Seborrhei c dermatiti s 73933534 Active 2023 Seborrhei c dermatiti s, unspecifi ed; Note: Date Diagnosed : 05/21/2023 2:30 PM (L21.9) Not Available [facility] 02:19:29 Temporoma ndibular joint disorder 10504803 Active 2023 Other specified disorders of temporoma ndibular joint; Note: Date Diagnosed : 05/21/2023 4:31 PM (M26.69) Not Available [facility] 4 02:19:41 Sensorine ural hearing loss of bilateral ears 720783803 Active 2023 Sensorine ural hearing loss, bilateral ; Note: Date Diagnosed : 05/21/2023 2:00 PM (H90.3) Not Available [facility] 4 02:19:41 Problem Notes None recorded. Procedures Surgical History Date Name Laterality Status Provider Name and Address Organization Details Recorded Time 06/01/2024 Comp Audio with Tymps - 53973 & 11200 completed ROCÍO FRANCISCO, [address],[place] [address], [place], [phone], [facility] - [facility] 06/01/2024 08:49:50 Imaging Results None recorded. Procedure [...] Updated DateTime 06/01/2024 172.72 cm 32.7 kg/m2 72967.36 g Cass Willis [facility] 06/01/2024 09:04:46 Date Recorded Body height Body mass index (BMI) Body weight Provider Name and Address Organization Details Last Updated DateTime 09/30/2023 172.72 cm 32.7 kg/m2 08406.36 g Cass Willis [facility] 09/30/2023 09:30:59 Social History None recorded. Functional Status None recorded. Mental Status None recorded. Family History Nothing Reported. Medical History No medical history recorded. Gynecological HistoryNo gynecological history recorded. Obstetrics History GPAL:G 0 P 0 0 0 0 Past Encounters Encounter ID Performer Location Encounter Start Date Encounter Closed Date Diagnosis/Indication Diagnosis SNOMED-CT Code Diagnosis ICD10 Code Diagnosis Note [id number] PATTI KING PA-C [facility] [address] [address] 09/30/2023 09:19:22 09/30/2023 09:52:56 Sensorineural hearing loss of bilateral ears 656527848 H90.3 Bilateral tinnitus 72575 76129 102 H93.13 [id number] PATTI KING PA-C [facility] [address] [address] 06/01/2024 08:39:59 06/01/2024 11:22:43 Sensorineural hearing loss of bilateral ears 004380184 H90.3 Bilateral tinnitus 02236 48692 102 H93.13 [id number] NADIYA ZAMORA [facility] [address] [address] 06/01/2024 08:49:24 06/01/2024 09:30:53 Sensorineural hearing loss of bilateral ears 866964613 H90.3 Audiologic al evaluation results:Ri ght ear:Normal [...] Member ID Guarantor Name 06/01/2024 1 MEDICARE B-[place]: [employer] Girish Hale [id number] Girish Hale 06/01/2024 2 [place]: [facility] Girish Hale [id number] Girish Hale Notes Date Note Type Note Provider Name and Address Organization Details Recorded Time 09/30/2023 text/html 67-year-old male presents for review of MRI. He was evaluated back in May and audiometric testing demonstrated asymmetric hearing loss. History of occupational noise exposure. Denies otalgia, otorrhea, and changes in his hearing. Continues to have longstanding tinnitus bilaterally that is intermittent. JOE KLINE MD [address] [place] [address], [phone], [facility] - [facility] 09/30/2023 18:00:16 06/01/2024 text/html 68-year-old male presents for follow up of asymmetric hearing loss. MRI brain/IAC 07/14/2023 was negative for retrocochlear pathology. Tinnitus is improved. Denies otalgia, otorrhea, or changes in his hearing. He is considering hearing aids. History of occupational noise exposure. DOMONIQUE ARMSTRONG MD [address] [place] [address], [phone], [facility] - [facility] 06/01/2024 12:14:40 OBGyn Episode No OBEpisode recorded.
[2024-08-08 09:52] VITALS: BP 141/86; PULSE 74; RESP 16; TEMP 36.6; O2SAT 97
== END 2024-08-08 09:55 | disposition home or self-care (01) ==
PROVIDERS: Emergency Provider Emergency Medicine
DX: S90.111A Contusion of right great toe without damage to nail, initial encounter (principal); W22.09XA Striking against other stationary object, initial encounter; Y93.84 Activity, sleeping; Y92.003 Bedroom of unspecified non-institutional (private) residence as the place of occurrence of the external cause; Y99.9 Unspecified external cause status
CPT/HCPCS: 73630; 99282; 99283

== ENCOUNTER → 2024-08-19 07:37 | Outpatient (REF) | payer MEDICARE, MEDICAID, SELFPAY ==
--- OUTSIDE RECORDS SUMMARY | 2024-08-19 07:39 | XMS_ITS | Data Portability ---
Author Organization [place] - [facility], Allergy Address [address] [place] [id number] Care Team Providers Care Medical Scheduler Name Role Phone KOKOBRANDON Primary Care Provider [phone] Assessment Encounter Date Assessment Date Assessment LastModified [...] candidate for amplification. He will consider this. Not available 09/30/2023 10:03:08 06/01/2024 06/01/2024 68-year-old [...] in his hearing, vertigo, or worsening tinnitus. [email or web address] Not available 06/01/2024 09:49:02 06/01/2024 06/01/2024 Follow [...] Organization Details Recorded Time Ulcerativ e rhinitis 30850769 Active 2023 Nasal mucositis (ulcerati ve); Note: Date Diagnosed : 03/20/2023 9:49 AM (J34.81) Not Available [facility] 4 02:18:48 Bilateral tinnitus 16554019021 02 Active 2023 Tinnitus, bilateral ; Note: Date Diagnosed : 05/21/2023 2:27 PM (H93.13) Not Available [facility] 4 02:18:58 Somatofor m disorder 63316984 Active 2023 Psychogen ic dysphagia , including 'globus hystericu s'; Note: Date Diagnosed : 04/14/2023 10:50 AM (F45.8) Not Available [facility] 4 02:19:13 Seborrhei c dermatiti s 94956133 Active 2023 Seborrhei c dermatiti s, unspecifi ed; Note: Date Diagnosed : 05/21/2023 2:30 PM (L21.9) Not Available [facility] 02:19:29 Temporoma ndibular joint disorder 75763589 Active 2023 Other specified disorders of temporoma ndibular joint; Note: Date Diagnosed : 05/21/2023 4:31 PM (M26.69) Not Available [facility] 4 02:19:41 Sensorine ural hearing loss of bilateral ears 154106918 Active 2023 Sensorine ural hearing loss, bilateral ; Note: Date Diagnosed : 05/21/2023 2:00 PM (H90.3) Not Available [facility] 4 02:19:41 Problem Notes None recorded. Procedures Surgical History Date Name Laterality Status Provider Name and Address Organization Details Recorded Time 06/01/2024 Comp Audio with Tymps - 74539 & 81302 completed ROCÍO FRANCISCO, [address],[place] [address], [place], [address], [facility] - [facility] 06/01/2024 08:49:50 Imaging Results None recorded. [...] Updated DateTime 06/01/2024 172.72 cm 32.7 kg/m2 72000.36 g Cass Willis [facility] 06/01/2024 09:04:46 Date Recorded Body height Body mass index (BMI) Body weight Provider Name and Address Organization Details Last Updated DateTime 09/30/2023 172.72 cm 32.7 kg/m2 31217.36 g Cass Willis [facility] 09/30/2023 09:30:59 Social History None recorded. Functional Status None recorded. Mental Status None recorded. Family History Nothing Reported. Medical History No medical history recorded. Gynecological HistoryNo gynecological history recorded. Obstetrics History GPAL:G 0 P 0 0 0 0 Past Encounters Encounter ID Performer Location Encounter Start Date Encounter Closed Date Diagnosis/Indication Diagnosis SNOMED-CT Code Diagnosis ICD10 Code Diagnosis Note [id number] PATTI KING PA-C [facility] [address] [address] 09/30/2023 09:19:22 09/30/2023 09:52:56 Sensorineural hearing loss of bilateral ears 959150975 H90.3 Bilateral tinnitus 67716 20917 102 H93.13 [id number] PATTI KING PA-C [facility] [address] [address] 06/01/2024 08:39:59 06/01/2024 11:22:43 Sensorineural hearing loss of bilateral ears 658494402 H90.3 Bilateral tinnitus 97392 56003 102 H93.13 [id number] NADIYA ZAMORA [facility] [address] [address] 06/01/2024 08:49:24 06/01/2024 09:30:53 Sensorineural hearing loss of bilateral ears 292405821 H90.3 Audiologic al evaluation results:Ri ght ear:Normal [...] Member ID Guarantor Name 06/01/2024 1 MEDICARE B-RI: [facility] Girish Hale [id number] Girish Hale 06/01/2024 2 MEDICAID-[place]: [facility] Gir[facility] Hale [id number] Girish Hale Notes Date Note Type Note Provider Name and Address Organization Details Recorded Time 09/30/2023 text/html 67-year-old male presents for review of MRI. He was evaluated back in May and audiometric testing demonstrated asymmetric hearing loss. History of occupational noise exposure. Denies otalgia, otorrhea, and changes in his hearing. Continues to have longstanding tinnitus bilaterally that is intermittent. JOE KLINE MD [address] [place] [address], [phone], [facility] - [facility] 09/30/2023 18:00:16 06/01/2024 text/html 68-year-old male presents for follow up of asymmetric hearing loss. MRI brain/IAC 07/14/2023 was negative for retrocochlear pathology. Tinnitus is improved. Denies otalgia, otorrhea, or changes in his hearing. He is considering hearing aids. History of occupational noise exposure. DOMONIQUE ARMSTRONG MD [address] [place] [address], [phone], [facility] - [facility] 06/01/2024 12:14:40 OBGyn Episode No OBEpisode recorded.
--- OUTSIDE RECORDS SUMMARY | 2024-08-19 07:39 | XMS_ITS | Patient Health Record ---
Author Organization [facility] Address [address] [place] [phone] Care Team Providers Care Tooler Name Role Phone Kyree Valentino MD Primary Care Provider Jae Grier Jr Unavailable Allergies Allergen (clinical drug ingredient) Drug/Non Drug Allergy documented on EMR Reaction Allergy Type Onset Date Status simvastatin Zocor muscle pain Drug Allergy Act niesha Reason For Referral No Information Medications Medication SIG (Take, Route, Frequency, Duration) Notes [...] Levothyroxine Sodium Active Stiolto Respimat Act niesha Immunizations Vaccine Route Administration Date Status Comme nts Influenza Unknown 10/19/2019 Administered Social History Tobacco Use: Social History Observation Description Date Details (start date - stop date) Former Smoker NA - NA Tobacco Use/Smoking Question Answer Notes Patient is a former smoker When did you stop smoking? 4 years How long has it been since you last smoked? 1-5 years Problems Problem Type SNOMED Code ICD Code Onset Dates Problem Status W/U Status Risk Notes Problem Colon cancer screening (731536740) Colon cancer screening (Z12.11) Active confirmed Problem Cook's esophagus (626759736) Cook's esophagus without dysplasia (K22.70) Active confirmed Plan Of Treatment Future Test Test Name Order Date UPPER GI ENDOSCOPY 08/30/2014 COLONOSCOPY 08/30/2014 UPPER GI ENDOSCOPY 12/12/2019 COLONOSCOPY 12/12/2019 Insurance Providers Payer Name Payer Address Payer Phone Subscriber Number Group Number Insured Name Patient Relationship to Insured Coverage Start Date Coverage End Date MEDICARE OF [place] [address] [place] [id number] INGRIS ALEMAN Self - patient is the insured MEDICAID OF [facility] [address] [place] [address] [id number] INGRIS ALEMAN Self - patient is the insured Medical (General) History Medical History History ICD Code colonoscopy 11/10/14, normal, five-year f ollowup because of family history. egd 11/10/14, Cook's esophagus over th e distal 1 cm, biopsies no dysplasia gerd hypertension elevated cholesterol back pain Barretts esophagus 530.85 Surgical History Surgery Date(Month/Year)
--- NOTE | 2024-08-19 07:40 | CA_ITS ---
Transthoracic Echocardiogram Patient (Last, First, Middle): Girish Hale R Gender: Male Date of : 1955 Age: 68 Procedure Date: 08/19/2024 Procedure Type: Transthoracic Echocardiogram Location: OP Height: 172.72 cm Weight: 101.15 kg BSA: 2.14 m2 Heart Rate: 77 bpm BP: 141 / 86 mmHg Learning Coordinator: SB Referring MD: Conor Garcia MD Raisin Separator Operator: Conor Garcia MD Symptoms: R06.00 - Dyspnea, unspecified Study Quality: Adequate ECG Rhythm: Sinus Conclusions: - Normal left ventricular size, thickness, systolic function, and wall motion. The visually estimated ejection fraction is between 55-60%. Diastolic function is normal for age. - Normal right ventricular cavity size and systolic function. Findings Left Ventricle Normal left ventricular size, thickness, systolic function, and wall motion. The visually estimated ejection fraction is between 55-60%. Diastolic function is normal for age. Right Ventricle Normal right ventricular cavity size and systolic function. Atria The left atrium is normal in size. The right atrium is normal in size. Aortic Valve Normal aortic valve structure and function. There is no aortic valve stenosis. There is no aortic valve regurgitation. Mitral Valve The mitral valve appears normal. There is no mitral valve regurgitation. There is no mitral valve stenosis. Pulmonic Valve The pulmonic valve is normal. There is no pulmonic valve regurgitation. Tricuspid Valve Normal tricuspid valve structure. There is no tricuspid valve regurgitation. Normal right atrial pressure. There is no evidence of pulmonary hypertension. Great Vessels All visible segments of the aorta are normal in size. The visualized portions of the pulmonary artery and branches are normal. Venous The inferior vena cava is normal in size and collapses greater than 50% with inspiration. Pericardium/Pleural There is no evidence of pericardial effusion. Prior Study Comparison No significant change compared to prior study dated: 05/23/2019. Measurements 2D Linear Measurements IVSd: 0.88 0.6-0.9/0.6-1.0 cm LVIDd: 5.26 3.9-5.3/4.2-5.9 cm LVIDd Index: 2.46 2.4-3.2/2.2-3.1 cm/m2 LVIDs: 3.62 2.0-3.6 cm LA Diam: 3.50 2.7-3.8/3.0-4.0 cm LAIDs Index: 1.64 1.5-2.3 cm/m2 LVOT Diam: 2.20 3.0+(-)1.3 cm 2D Systolic Function EF 4C: 57.60 >55% EF 2C: 64.00 >55% EF BiP: 60.30 >55% Mitral Valve MV Pk E: 0.78 MV PK A: 0.65 MV Decel Time: 190.00 E/A: 1.20 E'Lateral: 12.40 E'Medial: 6.74 E/E' Med: 11.50 E/E' Lat: 6.30 PHT: 56.00 MVA PHT: 3.93 Decel [place]: 4.08 Aortic Valve AoV Pk Miguel Angel: 1.38 AoV Pk Grad: 8.00 JUANCARLOS: 2.89 LVOT LVOT Pk Miguel Angel: 1.11 LVOT Mn Miguel Angel: 0.77 LVOT VTI: 0.24 LVOT Pk Grad: 5.00 LVOT Mn Grad: 3.00 LVOT Diam: 2.20 LVOT Area: 3.80 Diastolic Function MV Pk E: 0.78 MV Pk A: 0.65 E/A: 1.20 E'Medial: 6.74 E/E' Med: 11.50 E' Laterial: 12.40 E/E' Lat: 6.30 Right Ventricle TAPSE (mm): 27.70 TVS' Miguel Angel: 12.20 Tricuspid Valve TR Pk Miguel Angel: 2.74 TR Pk Grad: 30.00 RA Press: 3.00 RVSP: 33.00 Great Vessels Aorta Sinus of Valsalva: 2.90 2.0-3.5 cm Ao Asc: 3.00 2.1-3.4 cm Pulmonary Valve PV Pk Miguel Angel: 1.33 Peak PV Grad: 7.00 Updated in Other Vendor System with Status of Final Conor Garcia MD electronically signed on 08/21/2024 9:46:52 PM with status of Final
== END ==
LOC: HO.CARD 07:37
PROVIDERS: Visit Provider Internal Medicine Cardiovascular Disease
DX: R06.00 Dyspnea, unspecified (principal)
CPT/HCPCS: 93306

== ENCOUNTER → 2024-08-19 07:40 | Outpatient (BNV) | payer MEDICARE, MEDICAID, SELFPAY | PROVIDERS: Visit Provider Internal Medicine Cardiovascular Disease | DX: R06.00 Dyspnea, unspecified (principal) | CPT/HCPCS: 93306 ==

== ENCOUNTER 2024-09-02 07:27 | Outpatient (REF) | payer MEDICARE, MEDICAID, SELFPAY ==
--- OUTSIDE RECORDS SUMMARY | 2024-09-02 07:29 | XMS_ITS | Patient Health Record ---
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) Active confirmed Plan Of Treatment Future Test Test Name Order Date UPPER GI ENDOSCOPY 08/30/2014 COLONOSCOPY 08/30/2014 UPPER GI ENDOSCOPY 12/12/2019 COLONOSCOPY 12/12/2019 Insurance Providers Payer Name Payer Address Payer Phone Subscriber Number Group Number Insured Name Patient Relationship to Insured Coverage Start Date Coverage End Date MEDICARE OF [place] [address] [place] [id number] INGRIS ALEMAN Self - patient is the insured MEDICAID OF [facility] [address] [place] [address] [id number] INGRIS ALEMAN Self - patient is the insured Medical (General) History Medical History History ICD Code colonoscopy 11/10/14, normal, five-year f ollowup because of family history. egd 11/10/14, Cook's esophagus over th e distal 1 cm, biopsies no dysplasia gerd hypertension elevated cholesterol back pain Barretts esophagus 530.85 Surgical History Surgery Date(Month/Year)
[2024-09-02 10:16] LABS: MANUAL DIFF FLAG NO
[2024-09-02 10:19] LABS: Hematocrit 44.8 % (42.0-52.0); Hemoglobin 15.0 g/dl (14.0-18.0); Imm Gran Abs Auto 0.02 X10*3/uL (0.00-0.03); Imm Gran Pct Auto 0.3 % (0.0-0.4); Lymphocytes Absolute Auto 2.0 X10*3/uL (1.2-4.9); Mean Corpuscular HGB Conc 33.5 g/dl (31.0-36.0); Mean Corpuscular Hemoglobin 30.5 pg (27.0-33.0); Mean Corpuscular Volume 91.1 fL (80.0-98.0); NRBC Abs Auto 0.000 X10*3/uL (0.0-0.012); NRBC Pct Auto 0.0 /100WBC (0.0-0.2); Platelet Count 205 X10*3/uL (160-400); Red Blood Count 4.92 X10*6/uL (4.60-5.80); White Blood Count 5.9 X10*3/uL (4.8-10.8)
[2024-09-02 10:52] LABS: Appearance Urine Clear; Glucose Urine UA Negative (Negative); PH 6.5 (5.0-9.0); Specific Gravity - Urine 1.015 (1.005-1.025)
[2024-09-02 10:55] LABS: Alanine Aminotransferase 84 U/L (0-40); Albumin Level 4.5 g/dL (3.5-5.0); Alkaline Phosphatase 41 U/L (39-117); Anion Gap 13 (12-20); Aspartate Amino Transferase 43 U/L (5-37); Blood Urea Nitrogen 15 mg/dL (9-16); Calcium 9.0 mg/dL (8.4-10.2); Carbon Dioxide 28 mmol/L (22-29); Chloride 104 mmol/L (96-108); Cholesterol 160 mg/dL (<200); Estimated Glomerular Filt Rate 47; HDL Cholesterol 32 mg/dL (>40); Potassium 4.7 mmol/L (3.3-5.1); Sodium 140 mmol/L (135-145); Total Protein 7.0 g/dL (6.5-8.0); Triglycerides 258 mg/dL (<150)
[2024-09-02 11:04] LABS: Free T4 (Free Thyroxine) 1.01 ng/dL (0.71-1.85)
== END 2024-09-02 07:28 | disposition home or self-care (01) ==
LOC: HO.HMGCLDS 07:27
DX: I10 Essential (primary) hypertension (principal); J44.89 Other specified chronic obstructive pulmonary disease; R09.89 Other specified symptoms and signs involving the circulatory and respiratory systems; J45.50 Severe persistent asthma, uncomplicated; I65.29 Occlusion and stenosis of unspecified carotid artery; F41.9 Anxiety disorder, unspecified; E78.5 Hyperlipidemia, unspecified; E03.9 Hypothyroidism, unspecified; G47.30 Sleep apnea, unspecified; E66.9 Obesity, unspecified; R06.00 Dyspnea, unspecified
CPT/HCPCS: 36415; 80053; 80061; 81003; 82306; 84439; 84443; 85025

== ENCOUNTER 2024-09-08 08:06 | Outpatient (AMB) | payer MEDICARE, MEDICAID, SELFPAY ==
--- NOTE | 2024-09-08 08:11 | MHC.PC.OV ---
Vital Signs 09/08/24 08:12 09/08/24 09:14 Height 5 ft 8 in Weight 219 lb BMI 33.3 BP 146/90 H 140/78 H Blood Pressure Location Lt brachial Lt brachial Position Sitting Sitting Pulse 68 Pulse Source Pulse Oximeter Temp 97.9 F Temp Source Oral Pulse Oximetry (%) 97 Oxygen Delivery Method Room Air Intake Visit Reasons: hypthyroid/htn/copd Intake Note: Patient here for a follow up Hypothyroid, HTN, COPD Accompanied by: Self / Same As Patient Allergies meloxicam Adverse Reaction (Severe, Verified 10/04/24 14:48) Chest Pain rosuvastatin Adverse Reaction (Severe, Verified 10/04/24 14:48) Muscle cramps meperidine (From Demerol) Adverse Reaction (Verified 10/04/24 14:48) Nausea simvastatin (From Zocor) Adverse Reaction (Verified 10/04/24 14:48) Muscle Pain Medication List - Last Reconciled 09/08/24 by DENNY Franks albuterol sulfate 90 mcg/actuation 2 puffs inhalation Q4-6H PRN alirocumab (Praluent Pen) 150 mg subcut Q14D aspirin (Adult Aspirin Regimen) 81 mg PO DAILY baclofen 10 mg PO BID cholecalciferol (vitamin D3) 25 mcg PO DAILY enalapril maleate 20 mg PO DAILY esomeprazole magnesium 20 mg PO DAILY gabapentin 300 mg PO TID hydrochlorothiazide 12.5 mg PO DAILY levothyroxine 75 mcg PO DAILY lorazepam 1 mg PO BEDTIME PRN triamcinolone acetonide 0.5% 1 appl topical TID Tobacco use date assessed: 06/08/24 Dental Screening Dental Screen Date: 06/08/24 HPI hypthyroid/htn/copd HPI Details The patient is a 68-year-old male presenting follow up appointment. He is presenting with concerns regarding medication side effects and management of chronic conditions. The patient has a history of hyperlipidemia and was previously on Repatha, which was switched to Praluent due to insurance coverage issues. He is currently taking Praluent. The patient experienced pruritus with both medications, more severe with the second dose of Praluent, leading to discontinuation of the medication. Reports that he has not taken his medication for over a month. This shows some slight uptake of his LDL The patient reports muscle spasms and back pain, which worsened after discontinuing gabapentin and baclofen. He resumed baclofen at bedtime to manage the spasms, but continues to experience back pain and occasional calf cramps. The patient has a history of arthritis, with significant pain in the hands that improved after stopping gabapentin. He reports that the arthritis pain was severe prior to discontinuation of the medication. The patient has a history of hypertension, currently managed with medication, but reports recent issues with blood pressure control. He acknowledges high salt intake, which may be contributing to the elevated blood pressure readings. The patient suspects sleep apnea due to symptoms of snoring and occasional breathing difficulties during sleep. He has not undergone a sleep study but is considering an at-home test. Recent lab results indicate elevated fasting glucose, elevated triglycerides, low HDL cholesterol, and elevated liver enzymes. The patient has a family history of diabetes and acknowledges the need for further monitoring of glucose levels. The patient reports a toe injury sustained during sleep, which resulted in swelling and pain, but x-rays confirmed no fracture. [facility] Medical History Obesity Hypothyroidism Screening for prostate cancer Screening for diabetes mellitus Back pain Elevated cholesterol GERD (gastroesophageal reflux disease) Cook esophagus Hypertension CESPEDES (dyspnea on exertion) Surgical History Hx of cardiac catheterization History of esophagogastroduodenoscopy (EGD) Hx of colonoscopy Family History Father CVD (cardiovascular disease) Diabetes Myocardial infarct Mother Breast cancer Sister Colon cancer Son Substance use disorder Social History Housing: House Are you a primary transitional care liaison to a significant other at home: No Do you presently have visiting nurse or other home services: No Alcohol intake: former Patient Tobacco Use Status: Former Tobacco user Tobacco use type: Cigarette Years Smoked: 30 +/- e-Cigarette/Vaping Use: Never Used Second Hand Smoke Exposure: No service: No Current occupational status: retired and disabled Current occupation: left hand Cognitive needs: No Hearing needs: No Vision needs: Yes (glasses) Questionnaire Thrive Questionnaire Date Thrive assessed: 06/08/24 I am a: Patient What is your living situation today?: I have a steady place to live Within the past 12 months, did the food you bought not last and you didn't have the money to get more?: Never true Within the past 12 months, did you worry whether your food would run out before you got money to buy more?: Never true Do you have trouble paying for medicines?: No Do you have trouble getting transportation to medical appointments?: No Do you have trouble paying your heating and electricity bill?: No Do you have trouble taking care of your child, family member or friend?: No Do you have trouble with day-to-day activities such as bathing, preparing meals, shopping, managing finances, etc.?: No Are you currently unemployed and looking for a job?: No Are you interested in more education?: No Please select the resources that you would like help with: None Currently or been in a relationship where the following occur: No concerns reported THRIVE Score: 0 OTILIA-7 AMB Questionnaire OTILIA-7 Date OTILIA - 7 assessed: 06/08/24 Source: Developed by Drs. Leroy Valentine, Teresa Mcnamara, Balta Francois and colleagues, with an educational yaniv from [employer]. Review of Systems Const Denies body aches, Denies chills, Reports daytime sleepiness, Denies fever(s), Denies headache(s), Denies poor appetite, Reports snoring and Reports weight gain (2 lbs) Eyes Reports no additional complaints ENT Denies dysphagia, Denies dizziness, Denies headache(s) and Denies odynophagia Card Denies chest pain, Denies syncope, Denies edema, Denies irregular heart rhythm, Denies lightheadedness and Denies dyspnea Resp Denies cough, Denies dyspnea and Reports snoring GI Denies abdominal pain, Denies constipation, Denies dysphagia, Denies diarrhea, Denies nausea, Denies odynophagia and Denies vomiting Reports no additional complaints Musc Reports back pain (Chronic) and Reports muscle cramps (Legs and hands) Skin/Breast Reports system reviewed and no additional complaints, except as documented and Reports pruritus (Doing taken Praluent pen) Neuro Denies dizziness, Denies syncope and Denies headache(s) Psych Reports anxiety (Intermittently) Physical exam (Primary Care) Vital Signs: Last Vital Signs Temp 97.9 F 07/31/25 08:12 Pulse 68 09/08/24 08:12 BP 140/78 H 09/08/24 09:14 Pulse Ox 97 09/08/24 08:12 Oxygen Delivery Method Room Air 09/08/24 08:12 BMI result Body Mass Index 33.3 Tobacco/Smoking Status: Tobacco use Status Tobacco use date assessed 06/08/24 09/08/24 08:14 Patient Tobacco Use Status Former Tobacco user 09/08/24 08:14 Tobacco use type Cigarette 09/08/24 08:14 e-Cigarette/Vaping Use Never Used 09/08/24 08:14 Thrive Assessment: Date of Thrive Assessment Date Thrive assessed 06/08/24 09/08/24 08:14 Currently or been in a relationship where the following occur: No concerns reported Const General: cooperative, healthy appearing, comfortable and no acute distress Orientation/consciousness: patient oriented x3 HENMT Head: Yes normocephalic Ears: hearing grossly normal bilaterally General nose exam: Normal external nose present Eyes General: appearance normal, both eyes and all related structures Conjunctivae: conjunctivae normal Neck Neck: Yes full ROM and Yes no lymphadenopathy Resp Effort & Inspection: normal respiratory effort Auscultation: clear to auscultation bilaterally, no crackles, no rales, no rhonchi and no wheezes Cardio Rate: regular rate Rhythm: regular rhythm Heart sounds: S1 normal heart sound present and S2 normal heart sound present GI Inspection: Yes distended, Yes Abdominal panniculus present and Yes obesity Palpation (GI): Soft to palpation and nontender Auscultation: normal bowel sounds General: Yes no CVA tenderness Back/Spine/Pelvis Back: no CVA tenderness Thoracic/Lumbar Spine: lumbar spinal tenderness Skin General skin exam: no rashes or lesions noted Neuro General: patient oriented x3 Gait exam (Neuro): Normal gait present Extrem General: Yes normal to inspection, Yes full ROM and No edema Right lower extremity: full ROM; no edema Left lower extremity: full ROM; no edema Psych Affect: normal affect Attitude: cooperative Insight: Good insight present (Psych) Judgement: Good judgement present (Psych) Results Reviewed Results Reviewed: Laboratory Tests 09/02/24 09/02/24 07:35 07:40 WBC 5.9 RBC 4.92 Hgb 15.0 Hct 44.8 MCV 91.1 MCH 30.5 MCHC 33.5 RDW 13.7 Plt Count 205 MPV 10.8 Sodium 140 Potassium 4.7 Chloride 104 Carbon Dioxide 28 Anion Gap 13 BUN 15 Creatinine 1.48 H Estimated GFR 47 Fasting Glucose 120 H Calcium 9.0 Total Bilirubin 0.6 AST 43 H ALT 84 H Alkaline Phosphatase 41 Total Protein 7.0 Albumin 4.5 Triglycerides 258 H Cholesterol 160 LDL Cholesterol, Calc 77 HDL Cholesterol 32 L 25-OH Vitamin D Total 36.8 TSH 3.58 Free T4 1.01 Urine Color Yellow Urine Appearance Clear Urine pH 6.5 Ur Specific [place] 1.015 Urine Protein Negative Urine Glucose (UA) Negative Urine Ketones Negative Urine Blood Negative Urine Nitrite Negative Ur Leukocyte Esterase Negative Coding Level of Care Code Est Pt Level 4 (24147) Diagnoses Anxiety F41.9 Hypertension, unspecified type I10 Hypertension type: unspecified Stenosis of carotid artery, unspecified laterality I65.29 Laterality: unspecified laterality Familial hypercholesterolemia E78.01 Hyperlipidemia type: familial hypercholesterolemia Impaired fasting blood sugar R73.01 Hypothyroidism, unspecified type E03.9 Hypothyroidism type: unspecified Class 1 obesity with serious comorbidity and body mass index (BMI) of 34.0 to 34.9 in adult, unspecified obesity type E66.811; Z68.34 Body mass index: BMI 34.0-34.9 Obesity classification: adult class 1 (BMI 30 - 34.9) Obesity type: unspecified obesity type Serious obesity comorbidity presence: with serious comorbidity Snoring R06.83 Daytime sleepiness R40.0 Leg cramping R25.2 Low back pain, unspecified back pain laterality, unspecified chronicity, unspecified whether sciatica present M54.50 Chronicity: unspecified Back pain laterality: unspecified Sciatica presence: unspecified whether sciatica present Elevated liver enzymes R74.8 Time Spent (min) 39 Assessment & Plan Assessment & Plan (1) Anxiety: Code(s): F41.9 - Anxiety disorder, unspecified Category: Medical Plan: Encouraged CBT Continue lorazepam 1 mg at bedtime (2) Hypertension: Code(s): I10 - Essential (primary) hypertension Category: Medical Qualifiers: Hypertension type: unspecified Qualified Code(s): I10 - Essential (primary) hypertension Plan: Blood pressure 140/78 Reinforced low-salt diet Continue hydrochlorothiazide 12.5 mg daily, enalapril maleate 20 mg daily (3) Carotid stenosis: Code(s): I65.29 - Occlusion and stenosis of unspecified carotid artery Category: Medical Qualifiers: Laterality: unspecified laterality Qualified Code(s): I65.29 - Occlusion and stenosis of unspecified carotid artery Plan: Carotid Doppler study done last year in March 02. Shows bilateral minimal, non hemodynamically significant stenosis of the proximal right internal carotid artery corresponding to a 0-49% stenosis by velocity criteria Continue baby aspirin and Praluent 150 mg subq q 14D (4) Hyperlipidemia: Code(s): E78.5 - Hyperlipidemia, unspecified Category: Medical Qualifiers: Hyperlipidemia type: familial hypercholesterolemia Qualified Code(s): E78.01 - Familial hypercholesterolemia Plan: Triglycerides 258, total cholesterol 160, LDL 77, HDL 32 Discussed lifestyle modifications including dietary changes and physical activity Continue current treatment (5) Impaired fasting blood sugar: Code(s): R73.01 - Impaired fasting glucose Category: Medical Plan: Fasting glucose 120. We will add an A1c to his next labs Encouraged low sugar/carbohydrate diet (6) Hypothyroidism: Code(s): E03.9 - Hypothyroidism, unspecified Category: Medical Qualifiers: Hypothyroidism type: unspecified Qualified Code(s): E03.9 - Hypothyroidism, unspecified Plan: Euthyroidism We will continue levothyroxine 75 mcg daily We will repeat thyroid function in 3 months (7) Obesity: Code(s): E66.9 - Obesity, unspecified Category: Medical Qualifiers: Body mass index: BMI 34.0-34.9 Obesity classification: adult class 1 (BMI 30 - 34.9) Obesity type: unspecified obesity type Serious obesity comorbidity presence: with serious comorbidity Qualified Code(s): E66.811 - Obesity, class 1; Z68.34 - Body mass index [BMI] 34.0-34.9, adult Plan: Encouraged to exercise for at least 30 minutes a day/5 days a week Healthy eating discussed. Encouraged to eat fruits/vegetables, protein-fish/baked chicken, and to avoid salty/fried foods, sweets, caffeine and carbohydrates. Encouraged to increase water intake 6-8 glasses a day (8) Snoring: Code(s): R06.83 - Snoring Category: Medical Plan: Sleep study ordered (9) Daytime sleepiness: Code(s): R40.0 - Somnolence Category: Medical Plan: Same as above (10) Leg cramping: Code(s): R25.2 - Cramp and spasm Category: Medical Plan: Encouraged adequate hydration. Continue baclofen 10 mg b.i.d. (11) Low back pain: Code(s): M54.50 - Low back pain, unspecified Category: Medical Qualifiers: Chronicity: unspecified Back pain laterality: unspecified Sciatica presence: unspecified whether sciatica present Qualified Code(s): M54.50 - Low back pain, unspecified Plan: Avoid bed rest (including sitting in bed) and to simply limit painful activities; improvement usually occurs within a few weeks May use cool packs; may alternate cold and hot packs Exercises a arboleda (e.g., walking, swimming, cycling) as soon as possible, starting with 5-10 min and walk-in up to 20-30 minute q.day Abdominal core and back strengthening exercises may help to prevent future problems (12) Elevated liver enzymes: Code(s): R74.8 - Abnormal levels of other serum enzymes Category: Medical Plan: Limit alcohol, drug containing Tylenol, fatty foods We will continue to monitor Plan The patient will be advised to consult with 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 In the meantime, the patient should consider alternative lipid-lowering strategies, such as dietary modifications and omega-3 supplementation, to manage hyperlipidemia. For the management of muscle spasms and back pain, the patient is advised to resume gabapentin and baclofen, with the option to adjust the dosage as needed to minimize side effects. The patient should also follow up with pain management specialists for further evaluation and treatment options. The patient is encouraged to reduce salt intake to aid in blood pressure control and to monitor blood pressure regularly. A follow-up appointment is scheduled in three months to reassess blood pressure and lipid levels, including a repeat lipid panel and A1c test. Given the suspicion of sleep apnea, an at-home sleep study is recommended to evaluate the need for further intervention. The patient should be informed about the potential need for a CPAP machine if sleep apnea is confirmed. Patient was informed and verbally consented to the use of an ambient scribe for clinic note documentation during this visit. Orders: Orders Hemoglobin A1c 3 Months I10 - Essential (primary) hypertension, E78.01 - Familial hypercholesterolemia, E03.9 - Hypothyroidism, unspecified, E66.811 - Obesity, class 1, Z68.34 - Body mass index [BMI] 34.0-34.9, adult, J44.9 - Chronic obstructive pulmonary disease, unspecified, R73.01 - Impaired fasting glucose TSH reflex Free T4 3 Months I10 - Essential (primary) hypertension, E78.01 - Familial hypercholesterolemia, E03.9 - Hypothyroidism, unspecified, E66.811 - Obesity, class 1, Z68.34 - Body mass index [BMI] 34.0-34.9, adult, J44.9 - Chronic obstructive pulmonary disease, unspecified, R73.01 - Impaired fasting glucose Comprehensive [place]. Panel Fast 3 Months I10 - Essential (primary) hypertension, E78.01 - Familial hypercholesterolemia, E03.9 - Hypothyroidism, unspecified, E66.811 - Obesity, class 1, Z68.34 - Body mass index [BMI] 34.0-34.9, adult, J44.9 - Chronic obstructive pulmonary disease, unspecified, R73.01 - Impaired fasting glucose Lipid Panel 3 Months I10 - Essential (primary) hypertension, E78.01 - Familial hypercholesterolemia, E03.9 - Hypothyroidism, unspecified, E66.811 - Obesity, class 1, Z68.34 - Body mass index [BMI] 34.0-34.9, adult, J44.9 - Chronic obstructive pulmonary disease, unspecified, R73.01 - Impaired fasting glucose UA CC w/rflx Micro + Cult 3 Months I10 - Essential (primary) hypertension, E78.01 - Familial hypercholesterolemia, E03.9 - Hypothyroidism, unspecified, E66.811 - Obesity, class 1, Z68.34 - Body mass index [BMI] 34.0-34.9, adult, J44.9 - Chronic obstructive pulmonary disease, unspecified, R73.01 - Impaired fasting glucose Vitamin D 25-OH Total 3 Months I10 - Essential (primary) hypertension, E78.01 - Familial hypercholesterolemia, E03.9 - Hypothyroidism, unspecified, E66.811 - Obesity, class 1, Z68.34 - Body mass index [BMI] 34.0-34.9, adult, J44.9 - Chronic obstructive pulmonary disease, unspecified, R73.01 - Impaired fasting glucose RT home sleep study 09/08/24 R40.0 - Somnolence, R06.83 - Snoring
[2024-09-08 08:12] VITALS: BP 146/90; PULSE 68; TEMP 36.6; O2SAT 97; BMI 33.3
--- OUTSIDE RECORDS SUMMARY | 2024-09-08 08:13 | XMS_ITS | Patient Health Record ---
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 (K22.70) Active confirmed Plan Of Treatment Future Test Test Name Order Date UPPER GI ENDOSCOPY 08/30/2014 COLONOSCOPY 08/30/2014 UPPER GI ENDOSCOPY 12/12/2019 COLONOSCOPY 12/12/2019 Insurance Providers Payer Name Payer Address Payer Phone Subscriber Number Group Number Insured Name Patient Relationship to Insured Coverage Start Date Coverage End Date MEDICARE OF [place] [address] [place] [id number] INGRIS ALEMAN Self - patient is the insured MEDICAID OF [facility] [address] [place] [address] [id number] INGRIS ALEMAN Self - patient is the insured Medical (General) History Medical History History ICD Code colonoscopy 11/10/14, normal, five-year f ollowup because of family history. egd 11/10/14, Cook's esophagus over th e distal 1 cm, biopsies no dysplasia gerd hypertension elevated cholesterol back pain Barretts esophagus 530.85 Surgical History Surgery Date(Month/Year)
[2024-09-08 09:14] VITALS: BP 140/78
== END 2024-09-08 09:21 | disposition home or self-care (01) ==
LOC: HO.HMCH 08:07
DX: F41.9 Anxiety disorder, unspecified (principal); I10 Essential (primary) hypertension; I65.29 Occlusion and stenosis of unspecified carotid artery; E78.01 Familial hypercholesterolemia; R73.01 Impaired fasting glucose; E03.9 Hypothyroidism, unspecified; E66.811 Obesity, class 1; Z68.34 Body mass index [BMI] 34.0-34.9, adult; R06.83 Snoring; R40.0 Somnolence; R25.2 Cramp and spasm; M54.50 Low back pain, unspecified; R74.8 Abnormal levels of other serum enzymes

== ENCOUNTER → 2024-09-08 08:06 | Outpatient (BNVA) | payer MEDICARE, MEDICAID, SELFPAY | DX: F41.9 Anxiety disorder, unspecified (principal); I10 Essential (primary) hypertension; I65.29 Occlusion and stenosis of unspecified carotid artery; E78.01 Familial hypercholesterolemia; R73.01 Impaired fasting glucose; E03.9 Hypothyroidism, unspecified; E66.811 Obesity, class 1; Z68.34 Body mass index [BMI] 34.0-34.9, adult; Z71.3 Dietary counseling and surveillance; R06.83 Snoring; R40.0 Somnolence; R25.2 Cramp and spasm; M54.50 Low back pain, unspecified | CPT/HCPCS: 99212 ==

== ENCOUNTER 2024-10-04 14:27 | Outpatient (AMB) | payer MEDICARE, MEDICAID, SELFPAY ==
[2024-10-04 14:43] VITALS: BP 138/67; PULSE 72; O2SAT 97; BMI 30.4
--- NOTE | 2024-10-04 14:43 | A.OFFVIS_ITS ---
Vital Signs 10/04/24 14:43 Height 5 ft 8 in Weight 200 lb BMI 30.4 BP 138/67 Blood Pressure Location Rt brachial Position Sitting Pulse 72 Pulse Source Pulse Oximeter Pulse Oximetry (%) 97 Oxygen Delivery Method Room Air Intake Visit Reasons: CESPEDES Allergies meloxicam Adverse Reaction (Severe, Verified 10/04/24 14:48) Chest Pain rosuvastatin Adverse Reaction (Severe, Verified 10/04/24 14:48) Muscle cramps meperidine (From Demerol) Adverse Reaction (Verified 10/04/24 14:48) Nausea simvastatin (From Zocor) Adverse Reaction (Verified 10/04/24 14:48) Muscle Pain HPI HPI CESPEDES: Details: 68-year-old gentleman, former 30+ pack-year smoker, quit 2016 previously followed for underlying asthma/COPD overlap syndrome, and environmental allergies. He has been tried on Symbicort, Stiolto albuterol MDI with essentially no symptomatic response to inhaled bronchodilators. He was tried on Xolair with no significant symptomatic benefit. His cardiopulmonary exercise test showed no pulmonary limitation to his exercise capacity. He denies any recent exacerbations. [facility] Medical History Obesity Hypothyroidism Screening for prostate cancer Screening for diabetes mellitus Back pain Elevated cholesterol GERD (gastroesophageal reflux disease) Cook esophagus Hypertension CESEPDES (dyspnea on exertion) Surgical History Hx of cardiac catheterization History of esophagogastroduodenoscopy (EGD) Hx of colonoscopy Family History Father CVD (cardiovascular disease) Diabetes Myocardial infarct Mother Breast cancer Sister Colon cancer Son Substance use disorder Social History Housing: House Are you a primary hiv/aids care nurse to a significant other at home: No Do you presently have visiting nurse or other home services: No Alcohol intake: former Patient Tobacco Use Status: Former Tobacco user Tobacco use type: Cigarette Years Smoked: 30 +/- e-Cigarette/Vaping Use: Never Used Second Hand Smoke Exposure: No service: No Current occupational status: retired and disabled Current occupation: left hand Cognitive needs: No Hearing needs: No Vision needs: Yes (glasses) Review of Systems Const Denies daytime sleepiness, Denies excessive sweating, Denies fatigue, Denies fever(s), Denies lethargy, Denies malaise, Denies night sweats, Denies snoring and Denies weight loss Eyes Denies blurry vision and Denies itchy eyes ENT Denies nasal congestion, Denies post nasal drip, Denies sinus pain, Denies sinus pressure and Denies other ( Thrush) Card Denies chest pain, Denies pedal edema, Denies dyspnea, Denies orthopnea and Denies paroxysmal nocturnal dyspnea Resp Denies cough, Denies hemoptysis, Denies excessive phlegm production, Denies dyspnea, Denies snoring and Denies wheezing GI Denies abdominal pain and Denies heartburn Musc Denies myalgias, Denies arthralgias and Denies joint swelling Skin/Breast Denies rash Neuro Denies memory loss and Denies seizure-like activity Psych Denies abnormal sleep pattern, Denies anxiety and Denies memory loss Endo Denies excessive sweating, Denies fatigue and Denies heat intolerance Matty/Lymph Denies easy bruising Aller/Immun Denies itchy eyes, Denies seasonal rhinorrhea and Denies wheezing Physical Exam Vital Signs: Last Vital Signs Pulse 72 10/04/24 14:43 BP 138/67 10/04/24 14:43 Pulse Ox 97 10/04/24 14:43 Oxygen Delivery Method Room Air 10/04/24 14:43 BMI result Body Mass Index 30.4 Const General: no acute distress and alert Nutritional Appearance: not obese Orientation/consciousness: Other orientation findings ( oriented) HEENT Head: Yes atraumatic Eyes General: appearance normal, both eyes and all related structures Sclerae: sclerae normal EOM: EOMs intact bilaterally Neck Neck: Yes supple Lymphatic: no lymphadenopathy noted Resp Effort & Inspection: normal respiratory effort and no use of accessory muscles Auscultation: clear to auscultation bilaterally Cardio Rate: regular rate Rhythm: regular rhythm Heart sounds: no gallops, no murmurs and no rubs Skin General skin exam: other ( warm) Extrem General: No clubbing, No cyanosis and No edema Assessment & Plan Assessment & Plan (1) Environmental allergies: Code(s): Z91.09 - Other allergy status, other than to drugs and biological substances Category: Medical Plan: Only occasional provoked symptoms of Xolair that patient is comfortable with. Continue to monitor off therapy. (2) CESPEDES (dyspnea on exertion): Code(s): R06.00 - Dyspnea, unspecified Category: Medical Plan: Essentially resolved. Does use albuterol p.r.n. extremely rarely. Continue current regimen. Coding Level of Care Code Est Pt Level 4 (09551) Diagnoses Environmental allergies Z91.09 CESPEDES (dyspnea on exertion) R06.00
--- OUTSIDE RECORDS SUMMARY | 2024-10-04 15:28 | XMS_ITS | Patient Health Record ---
Author Organization [facility] Address [address] [place] [address] Care Team Providers Care Buyer Broker Name Role Phone Kyree Valentino MD Primary Care Provider Jae Grier Jr Unavailable [phone] Allergies Allergen (clinical drug ingredient) Drug/Non Drug [...] Status Risk Notes Problem Colon cancer screening (Z12.11) Active confirmed Problem Cook's esophagus (142845499) Cook's esophagus without dysplasia (K22.70) Active confirmed Plan Of Treatment Future Test Test Name Order Date UPPER GI ENDOSCOPY 08/30/2014 COLONOSCOPY 08/30/2014 UPPER GI ENDOSCOPY 12/12/2019 COLONOSCOPY 12/12/2019 Insurance Providers Payer Name Payer Address Payer Phone Subscriber Number Group Number Insured Name Patient Relationship to Insured Coverage Start Date Coverage End Date MEDICARE OF [place] [address] [place] [id number] INGRIS ALEMAN Self - patient is the insured MEDICAID OF [facility] [address] [place] [address] [id number] INGRIS ALEMAN Self - patient is the insured Medical (General) History Medical History History ICD Code colonoscopy 11/10/14, normal, five-year f ollowup because of family history. egd 11/10/14, Cook's esophagus over th e distal 1 cm, biopsies no dysplasia gerd hypertension elevated cholesterol back pain Barretts esophagus 530.85 Surgical History Surgery Date(Month/Year)
== END 2024-10-04 15:02 | disposition home or self-care (01) ==
LOC: HO.HPS 14:28
PROVIDERS: Visit Provider Internal Medicine Pulmonary Disease
DX: Z91.09 Other allergy status, other than to drugs and biological substances (principal); R06.00 Dyspnea, unspecified
CPT/HCPCS: 99214

== ENCOUNTER → 2024-10-04 14:27 | Outpatient (BNVA) | payer MEDICARE, MEDICAID, SELFPAY | PROVIDERS: Visit Provider Internal Medicine Pulmonary Disease | DX: Z91.09 Other allergy status, other than to drugs and biological substances (principal); R06.00 Dyspnea, unspecified | CPT/HCPCS: 99212 ==

== ENCOUNTER 2024-11-24 06:35 | Outpatient (REF) | payer MEDICARE, MEDICAID, SELFPAY ==
--- OUTSIDE RECORDS SUMMARY | 2024-11-24 06:41 | XMS_ITS | Patient Health Record ---
Author Organization [facility] Address [address] [place] [address] Care Team Providers Care Fermenter Operator Name Role Phone Kyree Valentino MD Primary [...] at 5:00 p.m. the day before the procedure; Duration: 1 day 12/12/2019 Active Enalapril Maleate 20 [...] Status Risk Notes Problem Colon cancer screening (903559213) Colon cancer screening (Z12.11) Active confirmed Problem Cook's esophagus (443071072) Cook's esophagus without dysplasia (K22.70) Active confirmed Plan Of Treatment Future Test Test Name Order Date UPPER GI ENDOSCOPY 08/30/2014 COLONOSCOPY 08/30/2014 UPPER GI ENDOSCOPY 12/12/2019 COLONOSCOPY 12/12/2019 Insurance Providers Payer Name Payer Address Payer Phone Subscriber Number Group Number Insured Name Patient Relationship to Insured Coverage Start Date Coverage End Date [place]ARE OF [place] [address] [place] [address] [id number] INGRIS ALEMAN Self - patient is the insured MEDICAID OF [facility] [address] [place] [address] [id number] INGRIS ALEMAN Self - patient is the insured Medical (General) History Medical History History ICD Code colonoscopy 11/10/14, normal, five-year f ollowup because of family history. egd 11/10/14, Cook's esophagus over th e distal 1 cm, biopsies no dysplasia gerd hypertension elevated cholesterol back pain Barretts esophagus 530.85 Surgical History Surgery Date(Month/Year)
[2024-11-24 10:36] LABS: Appearance Urine Clear; Glucose Urine UA Negative (Negative); PH 5.5 (5.0-9.0); Specific Gravity - Urine 1.020 (1.005-1.025); UMIC TRIGGER UACC YES
[2024-11-24 11:05] LABS: Alanine Aminotransferase 72 U/L (0-40); Albumin Level 4.6 g/dL (3.5-5.0); Alkaline Phosphatase 41 U/L (39-117); Anion Gap 14 (12-20); Aspartate Amino Transferase 44 U/L (5-37); Blood Urea Nitrogen 16 mg/dL (9-16); Calcium 9.3 mg/dL (8.4-10.2); Carbon Dioxide 27 mmol/L (22-29); Chloride 104 mmol/L (96-108); Cholesterol 251 mg/dL (<200); Estimated Glomerular Filt Rate 41; HDL Cholesterol 31 mg/dL (>40); Potassium 4.5 mmol/L (3.3-5.1); Sodium 140 mmol/L (135-145); Total Protein 7.2 g/dL (6.5-8.0); Triglycerides 283 mg/dL (<150)
[2024-11-24 12:39] LABS: Free T4 (Free Thyroxine) 1.03 ng/dL (0.71-1.85)
== END 2024-11-24 06:36 | disposition home or self-care (01) ==
LOC: HO.HMGCLDS 06:35
DX: I10 Essential (primary) hypertension (principal); E03.9 Hypothyroidism, unspecified; E78.019 Familial hypercholesterolemia, unspecified; E66.811 Obesity, class 1; Z68.34 Body mass index [BMI] 34.0-34.9, adult; J44.9 Chronic obstructive pulmonary disease, unspecified; R73.01 Impaired fasting glucose
CPT/HCPCS: 36415; 80053; 80061; 81001; 82306; 83036; 84439; 84443

== ENCOUNTER → 2024-11-29 12:41 | Outpatient (REF) | payer MEDICARE, MEDICAID, SELFPAY ==
--- OUTSIDE RECORDS SUMMARY | 2024-11-29 16:12 | XMS_ITS | Data Portability ---
Author Organization [place] [facility] Address [address] [place] [address] Care Team Providers Care Scale Model Maker Name Role Phone KOKOBRANDON Primary Care Provider [...] candidate for amplification. He will consider this. [email or web address] Not available 09/30/2023 10:03:08 06/01/2024 06/01/2024 68-year-old [...] in his hearing, vertigo, or worsening tinnitus. [email or web address] Not available 06/01/2024 09:49:02 06/01/2024 06/01/2024 Follow [...] available Establish ed 15 2025 11:30A M KASSANDRA CONNER Not available Not available Not available Lab [...] Organization Details Recorded Time Ulcerativ e rhinitis 18754932 Active 2023 Nasal mucositis (ulcerati ve); Note: Date Diagnosed : 03/20/2023 9:49 AM (J34.81) Not Available [facility] 4 02:18:48 Somatofor m disorder 65838391 Active 2023 Psychogen ic dysphagia , including 'globus hystericu s'; Note: Date Diagnosed : 04/14/2023 10:50 AM (F45.8) Not Available [facility] 4 02:19:13 Bilateral tinnitus 15214173653 02 Active 2023 Tinnitus, bilateral ; Note: Date Diagnosed : 05/21/2023 2:27 PM (H93.13) Not Available [facility] 4 02:18:58 Seborrhei c dermatiti s 21130442 Active 2023 Seborrhei c dermatiti s, unspecifi ed; Note: Date Diagnosed : 05/21/2023 2:30 PM (L21.9) Not Available [facility] 02:19:29 Temporoma ndibular joint disorder 78267056 Active 2023 Other specified disorders of temporoma ndibular joint; Note: Date Diagnosed : 05/21/2023 4:31 PM (M26.69) Not Available [facility] 4 02:19:41 Sensorine ural hearing loss of bilateral ears 843105528 Active 2023 Sensorine ural hearing loss, bilateral ; Note: Date Diagnosed : 05/21/2023 2:00 PM (H90.3) Not Available [facility] 4 02:19:41 Problem Notes None recorded. Procedures Surgical History Date Name Laterality Status Provider Name and Address Organization Details Recorded Time 06/01/2024 Comp Audio with Tymps - 53103 & 08253 completed ROCÍO FRANCISCO, [address],[place] [address], [place], [address], [facility] - [facility] 06/01/2024 08:49:50 Imaging Results None recorded. [...] Updated DateTime 06/01/2024 172.72 cm 32.7 kg/m2 [address] [facility] 06/01/2024 09:04:46 Date Recorded Body height Body mass index (BMI) Body weight Provider Name and Address Organization Details Last Updated DateTime 09/30/2023 172.72 cm 32.7 kg/m2 [address] [facility] 09/30/2023 09:30:59 Social History None recorded. Functional Status None recorded. Mental Status None recorded. Family History Nothing Reported. Medical History No medical history recorded. Gynecological HistoryNo gynecological history recorded. Obstetrics History GPAL:G 0 P 0 0 0 0 Past Encounters Encounter ID Performer Location Encounter Start Date Encounter Closed Date Diagnosis/Indication Diagnosis SNOMED-CT Code Diagnosis ICD10 Code Diagnosis IMO Codes Diagnosis Note [id number] PATTI KING PA-C [facility] [address] [address] 09/30/2023 09:19:22 09/30/2023 09:52:56 Sensorineural hearing loss of bilateral ears 453565815 H90.3 Bilateral tinnitus 95195 24703 102 H93.13 [id number] PATTI KING PA-C [facility] [address] [address] 06/01/2024 08:39:59 06/01/2024 11:22:43 Sensorineural hearing loss of bilateral ears 454831146 H90.3 Bilateral tinnitus 44010 13219 102 H93.13 [id number] NADIYA ZAMORA [facility] [address] [address] 06/01/2024 08:49:24 06/01/2024 09:30:53 Sensorineural hearing loss of bilateral ears 764782679 H90.3 Audiologic al evaluation results:Ri ght ear:Normal [...] Member ID Guarantor Name 06/01/2024 1 [place]ICARE B-[place]: [employer] Girish Hale [id number] Girish Hale 06/01/2024 2 [place]: [facility] Girish Hale [id number] Girish Hale Notes Date Note Type Note Provider Name and Address Organization Details Recorded Time 09/30/2023 text/html ROS as noted in the HPI 67-year-old male presents for review of MRI. He was evaluated back in May and audiometric testing demonstrated asymmetric hearing loss. History of occupational noise exposure. Denies otalgia, otorrhea, and changes in his hearing. Continues to have longstanding tinnitus bilaterally that is intermittent. JOE KLINE MD [address] [place] [address], [phone], [facility] - [facility] 09/30/2023 18:00:16 06/01/2024 text/html Audiological Evaluation HPIReported by Patient ROCÍO FRANCISCONADIYA [address] [facility],[place] [address], [place], [address], [facility] 06/01/2024 09:07:53 06/01/2024 text/html ROS as noted in the HPI 68-year-old male presents for follow up of asymmetric hearing loss. MRI brain/IAC 07/14/2023 was negative for retrocochlear pathology. Tinnitus is improved. Denies otalgia, otorrhea, or changes in his hearing. He is considering hearing aids. History of occupational noise exposure. DOMONIQUE ARMSTRONG MD [address] [facility], [place], [address], [facility] 06/01/2024 12:14:40 OBGyn Episode No OBEpisode recorded.
--- OUTSIDE RECORDS SUMMARY | 2024-11-29 16:12 | XMS_ITS | Patient Health Record ---
Author Organization [facility] Address [address] [place] [phone] Care Team Providers Care Body Welder Name Role Phone rPasanna Choudhury N.P. Primary Care Provider Jae Castro Jr Unavailable Allergies Allergen (clinical drug ingredient) [...] Status Risk Notes Problem Colon cancer screening (774546931) Colon cancer screening (Z12.11) Active confirmed Problem Cook's esophagus (172076418) Cook's esophagus without dysplasia (K22.70) Active confirmed Plan Of Treatment Future Test Test Name Order Date UPPER GI ENDOSCOPY 08/30/2014 COLONOSCOPY 08/30/2014 UPPER GI ENDOSCOPY 12/12/2019 COLONOSCOPY 12/12/2019 Next Appt Details Provider Name:Jae Qureshi Mynor norman Jr, 04/17/2025 09:40:00 AM, [address] [facility], [address], [place], [address], Insurance Providers Payer Name Payer Address Payer Phone Subscriber Number Group Number Insured Name Patient Relationship to Insured Coverage Start Date Coverage End Date MEDICARE OF [place] [address] [place] [address] [id number] INGRIS ALEMAN Self - patient is the insured MEDICAID OF [facility] [address] [place] [address] [id number] INGRIS ALEMAN Self - patient is the insured Medical (General) History Medical History History ICD Code colonoscopy 11/10/14, normal, five-year f ollowup because of family history. egd 11/10/14, Cook's esophagus over th e distal 1 cm, biopsies no dysplasia gerd hypertension elevated cholesterol back pain Barretts esophagus 530.85 Surgical History Surgery Date(Month/Year)
== END ==
LOC: HO.SL 12:41
DX: R40.0 Somnolence (principal); R06.83 Snoring; G47.30 Sleep apnea, unspecified
CPT/HCPCS: 95806

== ENCOUNTER 2024-12-09 09:08 | Outpatient (AMB) | payer MEDICARE, MEDICAID, SELFPAY ==
[2024-12-09 09:18] VITALS: BP 130/70; PULSE 67; RESP 18; TEMP 36.3; O2SAT 99; BMI 33.6
--- NOTE | 2024-12-09 09:18 | MHC.PC.OV ---
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: No Accompanied by: Self / Same As Patient Allergies meloxicam Adverse Reaction (Severe, Verified 12/12/24 21:02) Chest Pain rosuvastatin Adverse Reaction (Severe, Verified 12/12/24 21:02) Muscle cramps meperidine (From Demerol) Adverse Reaction (Verified 12/12/24 21:02) Nausea simvastatin (From Zocor) Adverse Reaction (Verified 12/12/24 21:02) Muscle Pain Medication List - Last Reconciled 12/12/24 by DENNY Franks albuterol sulfate 90 mcg/actuation 2 puffs inhalation Q4-6H PRN aspirin (Adult Aspirin Regimen) 81 mg PO DAILY baclofen 10 mg PO ONCE cholecalciferol (vitamin D3) 25 mcg PO DAILY enalapril maleate 20 mg PO DAILY esomeprazole magnesium 20 mg PO DAILY gabapentin 300 mg PO ONCE hydrochlorothiazide 12.5 mg PO DAILY levothyroxine 75 mcg PO DAILY lorazepam 1 mg PO BEDTIME PRN triamcinolone acetonide 0.5% 1 appl topical TID Tobacco use date assessed: 12/09/24 Fall risk assessment: No Falls in past year Last assessed Fall Risk: 12/09/24 Dental Screening Dental Screen Date: 12/09/24 Did you have a dental visit in the last 12 months?: No Did you have a dental problem in the last 6 months where you did not have access to dental care?: No Was dental information given to patient?: Patient has dentist HPI hnt/hld/hypothyroidism/copd HPI Details The patient is a 68-year-old male presenting for follow-up on recent labs and a sleep study, and for management of multiple chronic conditions. He reports intermittent chest pain and dyspnea, which can occur with exertion such as climbing stairs, but also occasionally at rest. He also notes sometimes waking up and gasping for a deep breath after dozing off in a chair. Prior workup for these symptoms included testing of his heart and lungs, including a stress test on a bike, which were all fine, with a recommendation for exercise. A recent sleep study was negative for sleep apnea, though it did show a moderate amount of snoring without oxygen desaturation. Regarding his lab results, his primary concern is hyperlipidemia. His bad cholesterol (LDL) increased from 77 to 164 after he stopped his cholesterol medication. He discontinued the injectable medication due to intolerable itching at the injection site and now has what he describes as scar tissue in that area. Previously, he took Zocor for about 10 years but stopped due to myalgias, and subsequent trials of other statins produced the same side effects. He has not yet followed up with cardiology as previously recommended. His labs also revealed persistently, slightly elevated liver enzymes, though the level is slightly lower than the last test. He does not drink alcohol, having stopped in the , and is not diabetic. He occasionally experiences shakiness that resolves with eating. The patient suffers from extensive chronic pain involving his neck down to his lower back, which he attributes to widespread arthritis and a history of heavy lifting. He has known pinched nerves secondary to a shift between L4-L5, which causes spasms and tingling in his legs. He is under the care of a pain management clinic and is scheduled for an epidural on December 27. He finds his current medications, baclofen and gabapentin, to be ineffective and cause excessive tiredness, leading him to reduce his dosage. He is not a surgical candidate and has a history of trying multiple other treatments, including high-dose tramadol and various injections with mixed results. Other ongoing issues include an intermittent sensation of neck swelling without a sore throat and left testicular pain that has been present for years, which sometimes feels swollen. [facility] Medical History Obesity Hypothyroidism Screening for prostate cancer Screening for diabetes mellitus Back pain Elevated cholesterol GERD (gastroesophageal reflux disease) Cook esophagus Hypertension CESPEDES (dyspnea on exertion) Surgical History Hx of cardiac catheterization History of esophagogastroduodenoscopy (EGD) Hx of colonoscopy Family History Father CVD (cardiovascular disease) Diabetes Myocardial infarct Mother Breast cancer Sister Colon cancer Son Substance use disorder Social History Housing: House Are you a primary healthcare receptionist to a significant other at home: No Do you presently have visiting nurse or other home services: No Alcohol intake: former Patient Tobacco Use Status: Former Tobacco user Tobacco use type: Cigarette Years Smoked: 30 +/- e-Cigarette/Vaping Use: Never Used Second Hand Smoke Exposure: No service: No Current occupational status: retired and disabled Current occupation: left hand Cognitive needs: No Hearing needs: No Vision needs: Yes (glasses) Questionnaire Thrive Questionnaire Date Thrive assessed: 06/08/24 I am a: Patient What is your living situation today?: I have a steady place to live Within the past 12 months, did the food you bought not last and you didn't have the money to get more?: Never true Within the past 12 months, did you worry whether your food would run out before you got money to buy more?: Never true Do you have trouble paying for medicines?: No Do you have trouble getting transportation to medical appointments?: No Do you have trouble paying your heating and electricity bill?: No Do you have trouble taking care of your child, family member or friend?: No Do you have trouble with day-to-day activities such as bathing, preparing meals, shopping, managing finances, etc.?: No Are you currently unemployed and looking for a job?: No Are you interested in more education?: No Please select the resources that you would like help with: None Currently or been in a relationship where the following occur: No concerns reported THRIVE Score: 0 OTILIA-7 AMB Questionnaire OTILIA-7 Date OTILIA - 7 assessed: 06/08/24 Source: Developed by Drs. Leroy Valentine, Teresa Mcnamara, Balta Francois and colleagues, with an educational yaniv from [employer] Review of Systems Const Denies body aches, Denies chills, Reports daytime sleepiness, Denies fever(s), Denies headache(s), Denies poor appetite, Reports snoring and Reports weight gain (2 lbs) Eyes Reports no additional complaints ENT Denies dysphagia, Denies dizziness, Denies headache(s) and Denies odynophagia Card Reports chest pain (Intermittent), Denies syncope, Denies edema, Denies irregular heart rhythm, Denies lightheadedness, Denies dyspnea and Reports dyspnea on exertion (Intermittent) Resp Denies cough, Denies dyspnea, Reports dyspnea on exertion (Intermittent) and Reports snoring GI Denies abdominal pain, Denies constipation, Denies dysphagia, Denies diarrhea, Denies nausea, Denies odynophagia and Denies vomiting Reports testicular pain (Ongoing for years) Musc Reports back pain (Chronic) and Reports muscle cramps (Legs and hands) Skin/Breast Reports pruritus (Doing taken Praluent pen) Neuro Denies dizziness, Denies syncope and Denies headache(s) Psych Reports anxiety (Intermittently) Physical exam (Primary Care) Vital Signs: Last Vital Signs Temp 97.3 F 12/09/24 09:18 Pulse 67 12/09/24 09:18 Resp 18 12/09/24 09:18 BP 130/70 12/09/24 09:18 Pulse Ox 99 12/09/24 09:18 Oxygen Delivery Method Room Air 12/09/24 09:18 BMI result Body Mass Index 33.6 Tobacco/Smoking Status: Tobacco use Status Tobacco use date assessed 12/09/24 12/09/24 09:32 Patient Tobacco Use Status Former Tobacco user 12/09/24 09:19 Tobacco use type Cigarette 12/09/24 09:19 e-Cigarette/Vaping Use Never Used 12/09/24 09:19 Thrive Assessment: Date of Thrive Assessment Date Thrive assessed 06/08/24 12/09/24 09:19 Currently or been in a relationship where the following occur: No concerns reported Const General: cooperative, healthy appearing, comfortable and no acute distress Orientation/consciousness: patient oriented x3 HENMT Head: Yes normocephalic Ears: hearing grossly normal bilaterally General nose exam: Normal external nose present Eyes General: appearance normal, both eyes and all related structures Conjunctivae: conjunctivae normal Pupils: Equal, round and reactive pupils present Neck Neck: Yes full ROM and Yes no lymphadenopathy Resp Effort & Inspection: normal respiratory effort Auscultation: clear to auscultation bilaterally, no crackles, no rales, no rhonchi and no wheezes Cardio Rate: regular rate Rhythm: regular rhythm Heart sounds: S1 normal heart sound present and S2 normal heart sound present GI Inspection: Yes distended, Yes Abdominal panniculus present and Yes obesity Palpation (GI): Soft to palpation and nontender Auscultation: normal bowel sounds General: Yes no CVA tenderness Scrotum: scrotum normal Back/Spine/Pelvis Back: no CVA tenderness Thoracic/Lumbar Spine: lumbar spinal tenderness Skin General skin exam: no rashes or lesions noted Neuro General: patient oriented x3 Cranial nerves: Yes Equal, round and reactive pupils present Gait exam (Neuro): Normal gait present Extrem General: Yes normal to inspection, Yes full ROM and No edema Right lower extremity: full ROM; no edema Left lower extremity: full ROM; no edema Psych Affect: normal affect Attitude: cooperative Insight: Good insight present (Psych) Judgement: Good judgement present (Psych) Results Reviewed Results Reviewed: Laboratory Tests 11/24/24 06:42 Sodium 140 Potassium 4.5 Chloride 104 Carbon Dioxide 27 Anion Gap 14 BUN 16 Creatinine 1.68 H Estimated GFR 41 Fasting Glucose 117 H Estimat Average Glucose 126 Hemoglobin A1c % 6.0 Calcium 9.3 Total Bilirubin 0.6 AST 44 H ALT 72 H Alkaline Phosphatase 41 Total Protein 7.2 Albumin 4.6 Triglycerides 283 H Cholesterol 251 H LDL Cholesterol, Calc 164 H HDL Cholesterol 31 L 25-OH Vitamin D Total 64.6 TSH 4.03 H Free T4 1.03 Urine Color Yellow Urine Appearance Clear Urine pH 5.5 Ur Specific [place] 1.020 Urine Protein Negative Urine Glucose (UA) Negative Urine Ketones Negative Urine Blood Negative Urine Nitrite Negative Ur Leukocyte Esterase Trace H Urine RBC 0-2 Urine WBC 0-5 Ur Squamous Epith Cells 0-2 Urine Bacteria None Seen Hyaline Casts 0-2 Coding Level of Care Code Est Pt Level 4 (71374) Diagnoses Anxiety F41.9 Hypertension, unspecified type I10 Hypertension type: unspecified Stenosis of carotid artery, unspecified laterality I65.29 Laterality: unspecified laterality Familial hypercholesterolemia E78.01 Hyperlipidemia type: familial hypercholesterolemia Impaired fasting blood sugar R73.01 Hypothyroidism, unspecified type E03.9 Hypothyroidism type: unspecified Class 1 obesity with serious comorbidity and body mass index (BMI) of 34.0 to 34.9 in adult, unspecified obesity type E66.811; Z68.34 Obesity type: unspecified obesity type Obesity classification: adult class 1 (BMI 30 - 34.9) Serious obesity comorbidity presence: with serious comorbidity Body mass index: BMI 34.0-34.9 Snoring R06.83 Daytime sleepiness R40.0 Leg cramping R25.2 Low back pain, unspecified back pain laterality, unspecified chronicity, unspecified whether sciatica present M54.50 Chronicity: unspecified Back pain laterality: unspecified Sciatica presence: unspecified whether sciatica present Elevated liver enzymes R74.8 Pain in left testicle N50.812 Laterality: left Neck swelling R22.1 Time Spent (min) 39 Assessment & Plan Assessment & Plan (1) Anxiety: Code(s): F41.9 - Anxiety disorder, unspecified Category: Medical Plan: Encouraged CBT Continue lorazepam 1 mg at bedtime (2) Hypertension: Code(s): I10 - Essential (primary) hypertension Category: Medical Qualifiers: Hypertension type: unspecified Qualified Code(s): I10 - Essential (primary) hypertension Plan: Blood pressure 130/70-goal systolic 130 mm Hg or less Reinforced low-salt diet Continue hydrochlorothiazide 12.5 mg daily, enalapril maleate 20 mg daily (3) Carotid stenosis: Code(s): I65.29 - Occlusion and stenosis of unspecified carotid artery Category: Medical Qualifiers: Laterality: unspecified laterality Qualified Code(s): I65.29 - Occlusion and stenosis of unspecified carotid artery Plan: Carotid Doppler study done last year in March 02. Shows bilateral minimal, non hemodynamically significant stenosis of the proximal right internal carotid artery corresponding to a 0-49% stenosis by velocity criteria Continue baby aspirin, reports that he is no longer taking Praluent pen 150 mg (4) Hyperlipidemia: Code(s): E78.5 - Hyperlipidemia, unspecified Category: Medical Qualifiers: Hyperlipidemia type: familial hypercholesterolemia Qualified Code(s): E78.01 - Familial hypercholesterolemia Plan: The patient's LDL cholesterol has significantly increased to 164 after stopping his injectable medication. He has a history of intolerance to both injectable therapy (localized pruritus) and multiple oral statins (myalgia). He refuses to restart injectable therapy due to side effects. Advised to use hydrocortisone cream for residual itching at old injection sites. Will encourage follow-up with cardiology to discuss alternative treatment strategies. (5) Impaired fasting blood sugar: Code(s): R73.01 - Impaired fasting glucose Category: Medical Plan: Fasting glucose 116, A1c 6% Reinforced low sugar/carbohydrate diet We will repeat fasting glucose and A1c in 3 months (6) Hypothyroidism: Code(s): E03.9 - Hypothyroidism, unspecified Category: Medical Qualifiers: Hypothyroidism type: unspecified Qualified Code(s): E03.9 - Hypothyroidism, unspecified Plan: Euthyroidism We will continue levothyroxine 75 mcg daily We will repeat thyroid function in 3 months (7) Obesity: Code(s): E66.9 - Obesity, unspecified Category: Medical Qualifiers: Obesity type: unspecified obesity type Obesity classification: adult class 1 (BMI 30 - 34.9) Serious obesity comorbidity presence: with serious comorbidity Body mass index: BMI 34.0-34.9 Qualified Code(s): E66.811 - Obesity, class 1; Z68.34 - Body mass index [BMI] 34.0-34.9, adult Plan: Encouraged to exercise for at least 30 minutes a day/5 days a week Healthy eating discussed. Encouraged to eat fruits/vegetables, protein-fish/baked chicken, and to avoid salty/fried foods, sweets, caffeine and carbohydrates. Encouraged to increase water intake 6-8 glasses a day (8) Snoring: Code(s): R06.83 - Snoring Category: Medical Plan: Sleep study negative for sleep apnea. Moderate amount of snoring heard without hypoxia or apnea. Recommendation for ways to decrease snoring, like weight management. (9) Daytime sleepiness: Code(s): R40.0 - Somnolence Category: Medical Plan: Sleep apnea test negative (10) Leg cramping: Code(s): R25.2 - Cramp and spasm Category: Medical Plan: Encouraged adequate hydration. Continue baclofen 10 mg b.i.d. (11) Low back pain: Code(s): M54.50 - Low back pain, unspecified Category: Medical Qualifiers: Chronicity: unspecified Back pain laterality: unspecified Sciatica presence: unspecified whether sciatica present Qualified Code(s): M54.50 - Low back pain, unspecified Plan: Avoid bed rest (including sitting in bed) and to simply limit painful activities; improvement usually occurs within a few weeks May use cool packs; may alternate cold and hot packs Exercises a arboleda (e.g., walking, swimming, cycling) as soon as possible, starting with 5-10 min and walk-in up to 20-30 minute q.day Abdominal core and back strengthening exercises may help to prevent future problems (12) Elevated liver enzymes: Code(s): R74.8 - Abnormal levels of other serum enzymes Category: Medical Plan: AST 44, ALT 72 Limit alcohol, drug containing Tylenol, fatty foods We will continue to monitor (13) Testicular pain: Code(s): N50.819 - Testicular pain, unspecified Category: Medical Qualifiers: Laterality: left Qualified Code(s): N50.812 - Left testicular pain Plan: The patient reports a long-standing history of intermittent left testicular pain. An ultrasound of the left testicle will be ordered for evaluation. (14) Neck swelling: Code(s): R22.1 - Localized swelling, mass and lump, neck Category: Medical Plan: Reports intermittent sensation of swelling in his neck. No swelling noted or felt on examination. We will continue to monitor Orders: Orders Comprehensive Vista. Panel Fast 3 Months E03.9 - Hypothyroidism, unspecified, E66.811 - Obesity, class 1, E78.01 - Familial hypercholesterolemia, F41.9 - Anxiety disorder, unspecified, I10 - Essential (primary) hypertension, I65.29 - Occlusion and stenosis of unspecified carotid artery, J44.9 - Chronic obstructive pulmonary disease, unspecified, R06.00 - Dyspnea, unspecified, R09.89 - Other specified symptoms and signs involving the circulatory and respiratory systems, R73.01 - Impaired fasting glucose, R74.8 - Abnormal levels of other serum enzymes, Z68.34 - Body mass index [BMI] 34.0-34.9, adult, Z91.09 - Other allergy status, other than to drugs and biological substances Hemoglobin A1c 3 Months E03.9 - Hypothyroidism, unspecified, E66.811 - Obesity, class 1, E78.01 - Familial hypercholesterolemia, F41.9 - Anxiety disorder, unspecified, I10 - Essential (primary) hypertension, I65.29 - Occlusion and stenosis of unspecified carotid artery, J44.9 - Chronic obstructive pulmonary disease, unspecified, R06.00 - Dyspnea, unspecified, R09.89 - Other specified symptoms and signs involving the circulatory and respiratory systems, R73.01 - Impaired fasting glucose, R74.8 - Abnormal levels of other serum enzymes, Z68.34 - Body mass index [BMI] 34.0-34.9, adult, Z91.09 - Other allergy status, other than to drugs and biological substances Vitamin D 25-OH Total 3 Months E03.9 - Hypothyroidism, unspecified, E66.811 - Obesity, class 1, E78.01 - Familial hypercholesterolemia, F41.9 - Anxiety disorder, unspecified, I10 - Essential (primary) hypertension, I65.29 - Occlusion and stenosis of unspecified carotid artery, J44.9 - Chronic obstructive pulmonary disease, unspecified, R06.00 - Dyspnea, unspecified, R09.89 - Other specified symptoms and signs involving the circulatory and respiratory systems, R73.01 - Impaired fasting glucose, R74.8 - Abnormal levels of other serum enzymes, Z68.34 - Body mass index [BMI] 34.0-34.9, adult, Z91.09 - Other allergy status, other than to drugs and biological substances Lipid Panel 3 Months E03.9 - Hypothyroidism, unspecified, E66.811 - Obesity, class 1, E78.01 - Familial hypercholesterolemia, F41.9 - Anxiety disorder, unspecified, I10 - Essential (primary) hypertension, I65.29 - Occlusion and stenosis of unspecified carotid artery, J44.9 - Chronic obstructive pulmonary disease, unspecified, R06.00 - Dyspnea, unspecified, R09.89 - Other specified symptoms and signs involving the circulatory and respiratory systems, R73.01 - Impaired fasting glucose, R74.8 - Abnormal levels of other serum enzymes, Z68.34 - Body mass index [BMI] 34.0-34.9, adult, Z91.09 - Other allergy status, other than to drugs and biological substances Free T4 (Free Thyroxine) 3 Months E03.9 - Hypothyroidism, unspecified, E66.811 - Obesity, class 1, E78.01 - Familial hypercholesterolemia, F41.9 - Anxiety disorder, unspecified, I10 - Essential (primary) hypertension, I65.29 - Occlusion and stenosis of unspecified carotid artery, J44.9 - Chronic obstructive pulmonary disease, unspecified, R06.00 - Dyspnea, unspecified, R09.89 - Other specified symptoms and signs involving the circulatory and respiratory systems, R73.01 - Impaired fasting glucose, R74.8 - Abnormal levels of other serum enzymes, Z68.34 - Body mass index [BMI] 34.0-34.9, adult, Z91.09 - Other allergy status, other than to drugs and biological substances UA CC w/rflx Micro + Cult 3 Months E03.9 - Hypothyroidism, unspecified, E66.811 - Obesity, class 1, E78.01 - Familial hypercholesterolemia, F41.9 - Anxiety disorder, unspecified, I10 - Essential (primary) hypertension, I65.29 - Occlusion and stenosis of unspecified carotid artery, J44.9 - Chronic obstructive pulmonary disease, unspecified, R06.00 - Dyspnea, unspecified, R09.89 - Other specified symptoms and signs involving the circulatory and respiratory systems, R73.01 - Impaired fasting glucose, R74.8 - Abnormal levels of other serum enzymes, Z68.34 - Body mass index [BMI] 34.0-34.9, adult, Z91.09 - Other allergy status, other than to drugs and biological substances Transferrin 3 Months E03.9 - Hypothyroidism, unspecified, E66.811 - Obesity, class 1, E78.01 - Familial hypercholesterolemia, F41.9 - Anxiety disorder, unspecified, I10 - Essential (primary) hypertension, I65.29 - Occlusion and stenosis of unspecified carotid artery, J44.9 - Chronic obstructive pulmonary disease, unspecified, R06.00 - Dyspnea, unspecified, R09.89 - Other specified symptoms and signs involving the circulatory and respiratory systems, R73.01 - Impaired fasting glucose, R74.8 - Abnormal levels of other serum enzymes, Z68.34 - Body mass index [BMI] 34.0-34.9, adult, Z91.09 - Other allergy status, other than to drugs and biological substances US scrotum Today N50.812 - Left testicular pain Complete Blood Count Auto Diff 3 Months E03.9 - Hypothyroidism, unspecified, E66.811 - Obesity, class 1, E78.01 - Familial hypercholesterolemia, F41.9 - Anxiety disorder, unspecified, I10 - Essential (primary) hypertension, I65.29 - Occlusion and stenosis of unspecified carotid artery, J44.9 - Chronic obstructive pulmonary disease, unspecified, R06.00 - Dyspnea, unspecified, R09.89 - Other specified symptoms and signs involving the circulatory and respiratory systems, R73.01 - Impaired fasting glucose, R74.8 - Abnormal levels of other serum enzymes, Z68.34 - Body mass index [BMI] 34.0-34.9, adult, Z91.09 - Other allergy status, other than to drugs and biological substances TSH reflex Free T4 3 Months E03.9 - Hypothyroidism, unspecified, E66.811 - Obesity, class 1, E78.01 - Familial hypercholesterolemia, F41.9 - Anxiety disorder, unspecified, I10 - Essential (primary) hypertension, I65.29 - Occlusion and stenosis of unspecified carotid artery, J44.9 - Chronic obstructive pulmonary disease, unspecified, R06.00 - Dyspnea, unspecified, R09.89 - Other specified symptoms and signs involving the circulatory and respiratory systems, R73.01 - Impaired fasting glucose, R74.8 - Abnormal levels of other serum enzymes, Z68.34 - Body mass index [BMI] 34.0-34.9, adult, Z91.09 - Other allergy status, other than to drugs and biological substances NT Pro B Type Natriuretic Pept 3 Months E03.9 - Hypothyroidism, unspecified, E66.811 - Obesity, class 1, E78.01 - Familial hypercholesterolemia, F41.9 - Anxiety disorder, unspecified, I10 - Essential (primary) hypertension, I65.29 - Occlusion and stenosis of unspecified carotid artery, J44.9 - Chronic obstructive pulmonary disease, unspecified, R06.00 - Dyspnea, unspecified, R09.89 - Other specified symptoms and signs involving the circulatory and respiratory systems, R73.01 - Impaired fasting glucose, R74.8 - Abnormal levels of other serum enzymes, Z68.34 - Body mass index [BMI] 34.0-34.9, adult, Z91.09 - Other allergy status, other than to drugs and biological substances Ferritin 3 Months E03.9 - Hypothyroidism, unspecified, E66.811 - Obesity, class 1, E78.01 - Familial hypercholesterolemia, F41.9 - Anxiety disorder, unspecified, I10 - Essential (primary) hypertension, I65.29 - Occlusion and stenosis of unspecified carotid artery, J44.9 - Chronic obstructive pulmonary disease, unspecified, R06.00 - Dyspnea, unspecified, R09.89 - Other specified symptoms and signs involving the circulatory and respiratory systems, R73.01 - Impaired fasting glucose, R74.8 - Abnormal levels of other serum enzymes, Z68.34 - Body mass index [BMI] 34.0-34.9, adult, Z91.09 - Other allergy status, other than to drugs and biological substances Hepatitis A,B,C Profile 3 Months E03.9 - Hypothyroidism, unspecified, E66.811 - Obesity, class 1, E78.01 - Familial hypercholesterolemia, F41.9 - Anxiety disorder, unspecified, I10 - Essential (primary) hypertension, I65.29 - Occlusion and stenosis of unspecified carotid artery, J44.9 - Chronic obstructive pulmonary disease, unspecified, R06.00 - Dyspnea, unspecified, R09.89 - Other specified symptoms and signs involving the circulatory and respiratory systems, R73.01 - Impaired fasting glucose, R74.8 - Abnormal levels of other serum enzymes, Z68.34 - Body mass index [BMI] 34.0-34.9, adult, Z91.09 - Other allergy status, other than to drugs and biological substances US abdomen chavez w elastography 12/09/24 R74.8 - Abnormal levels of other serum enzymes Medications: Changed From gabapentin 300 mg PO TID 90 caps 2RF To gabapentin 300 mg PO ONCE
--- OUTSIDE RECORDS SUMMARY | 2024-12-09 10:04 | XMS_ITS | Patient Health Record ---
Author Organization [facility] Address [address] [place] [address] Care Team Providers Care Zipper Machine Operator Name Role Phone Prasanna Choudhury N.P. Primary Care Provider Jae Castro [...] Status Risk Notes Problem Colon cancer screening (872934975) Colon cancer screening (Z12.11) Active confirmed Problem Cook's esophagus (666513925) Cook's esophagus without dysplasia (K22.70) Active confirmed Plan Of Treatment Future Test Test Name Order Date UPPER GI ENDOSCOPY 08/30/2014 COLONOSCOPY 08/30/2014 UPPER GI ENDOSCOPY 12/12/2019 COLONOSCOPY 12/12/2019 Next Appt Details Provider Name:Jae Qureshi Mynor norman Jr, 04/17/2025 09:40:00 AM, [address] [facility], [address], [place], [address], Insurance Providers Payer Name Payer Address Payer Phone Subscriber Number Group Number Insured Name Patient Relationship to Insured Coverage Start Date Coverage End Date MEDICARE OF [place] [address] [place] [address] [id number] INGRIS ALEMAN Self - patient is the insured MEDICAID OF [facility] [address] [place] [address] [phone] [id number] INGRIS ALEMAN Self - patient is the insured Medical (General) History Medical History History ICD Code colonoscopy 11/10/14, normal, five-year f ollowup because of family history. egd 11/10/14, Cook's esophagus over th e distal 1 cm, biopsies no dysplasia gerd hypertension elevated cholesterol back pain Barretts esophagus 530.85 Surgical History Surgery Date(Month/Year)
== END 2024-12-09 10:42 | disposition home or self-care (01) ==
LOC: HO.HMCH 09:09
DX: I10 Essential (primary) hypertension (principal); F41.9 Anxiety disorder, unspecified; I65.29 Occlusion and stenosis of unspecified carotid artery; E78.019 Familial hypercholesterolemia, unspecified; E66.811 Obesity, class 1; Z68.34 Body mass index [BMI] 34.0-34.9, adult; R73.01 Impaired fasting glucose; E03.9 Hypothyroidism, unspecified; R06.83 Snoring; R40.0 Somnolence; R25.2 Cramp and spasm; M54.50 Low back pain, unspecified; R74.8 Abnormal levels of other serum enzymes; N50.812 Left testicular pain; R22.1 Localized swelling, mass and lump, neck

== ENCOUNTER → 2024-12-09 09:08 | Outpatient (BNVA) | payer MEDICARE, MEDICAID, SELFPAY | DX: I10 Essential (primary) hypertension (principal); I65.29 Occlusion and stenosis of unspecified carotid artery; E78.019 Familial hypercholesterolemia, unspecified; E03.9 Hypothyroidism, unspecified; R73.01 Impaired fasting glucose; E66.811 Obesity, class 1; Z68.34 Body mass index [BMI] 34.0-34.9, adult; R06.83 Snoring; R40.0 Somnolence; R25.2 Cramp and spasm; M54.50 Low back pain, unspecified; R74.8 Abnormal levels of other serum enzymes; R22.1 Localized swelling, mass and lump, neck; N50.812 Left testicular pain; Z71.3 Dietary counseling and surveillance; Z87.891 Personal history of nicotine dependence | CPT/HCPCS: 99212 ==

== ENCOUNTER 2024-12-20 14:12 | Outpatient (REF) | payer MEDICARE, MEDICAID, SELFPAY ==
--- NOTE | ~2024-12-20 | US_ITS ---
EXAMINATION: US SCROTUM CLINICAL INFORMATION: Left testicular pain.. COMPARISON: None available. TECHNIQUE: A sonogram of the scrotum was performed assessing wasserman-scale appearance and color Doppler flow. Spectral Doppler analysis of the arterial and venous flow were performed in the testes bilaterally. FINDINGS: RIGHT: Right testicle measures 4.2 x 1.8 x 3.4 cm, volume 14 mL. No solid or cystic lesion. Spectral Doppler analysis of the arterial and venous flow is normal in the right testis. Right epididymal head is normal. 3 mm cyst in the head of the epididymis. Trace of fluid in the scrotal sac. No prominent pampiniform plexus. Right epididymal Doppler flow is normal. LEFT: Left testicle measures 4.0 x 1.4 x 3.4 cm, volume 10 mL. No solid or cystic lesion. Spectral Doppler analysis of the arterial and venous flow is normal in the left testis. Left epididymal head is 3 and 12 mm cysts. Prominent in pampiniform plexus. No free fluid in the scrotal sac. Left epididymal Doppler flow is normal. US/US scrotum IMPRESSION: No testicular torsion. Varicocele, left-sided. Simple cysts, epididymus head, bilaterally. Electronically signed by: Tavo Miramontes MD 12/20/2024 03:04 PM EST
--- OUTSIDE RECORDS SUMMARY | 2024-12-20 15:53 | XMS_ITS | Patient Health Record ---
Author Organization [facility] Address [address] [place] [phone] Care Team Providers Care Pottery Striper Name Role Phone Prasanna Choudhury N.P. Primary [...] Status Risk Notes Problem Colon cancer screening (534011264) Colon cancer screening (Z12.11) Active confirmed Problem Cook's esophagus (466198905) Cook's esophagus without dysplasia (K22.70) Active confirmed Plan Of Treatment Future Test Test Name Order Date UPPER GI ENDOSCOPY 08/30/2014 COLONOSCOPY 08/30/2014 UPPER GI ENDOSCOPY 12/12/2019 COLONOSCOPY 12/12/2019 Next Appt Details Provider Name:Jae Qureshi Mynor norman Jr, 04/17/2025 09:40:00 AM, [address] [facility], [address], [place], [address], Insurance Providers Payer Name Payer Address Payer Phone Subscriber Number Group Number Insured Name Patient Relationship to Insured Coverage Start Date Coverage End Date MEDICARE OF [place] [address] [place] [address] [phone] [id number] INGRIS ALEMAN Self - patient is the insured MEDICAID OF [facility] [address] [place] [phone] [id number] INGRIS ALEMAN Self - patient is the insured Medical (General) History Medical History History ICD Code colonoscopy 11/10/14, normal, five-year f ollowup because of family history. egd 11/10/14, Cook's esophagus over th e distal 1 cm, biopsies no dysplasia gerd hypertension elevated cholesterol back pain Barretts esophagus 530.85 Surgical History Surgery Date(Month/Year)
--- OUTSIDE RECORDS SUMMARY | 2024-12-20 15:53 | XMS_ITS | Data Portability ---
Author Organization [place] [facility], [facility] Address [address] [place] [phone] Care Team Providers Care Online Content Coordinator Name Role Phone KOKOBRANDON Primary Care Provider [...] candidate for amplification. He will consider this. [email or web address] Not available 09/30/2023 10:03:08 06/01/2024 06/01/2024 68-year-old [...] in his hearing, vertigo, or worsening tinnitus. [email or web address] Not available 06/01/2024 09:49:02 06/01/2024 06/01/2024 Follow [...] Organization Details Recorded Time Ulcerativ e rhinitis 50130498 Active 2023 Nasal mucositis (ulcerati ve); Note: Date Diagnosed : 03/20/2023 9:49 AM (J34.81) Not Available [facility] 4 02:18:48 Somatofor m disorder 27959232 Active 2023 Psychogen ic dysphagia , including 'globus hystericu s'; Note: Date Diagnosed : 04/14/2023 10:50 AM (F45.8) Not Available [facility] 4 02:19:13 Bilateral tinnitus 47910459974 02 Active 2023 Tinnitus, bilateral ; Note: Date Diagnosed : 05/21/2023 2:27 PM (H93.13) Not Available [facility] 4 02:18:58 Seborrhei c dermatiti s 43390065 Active 2023 Seborrhei c dermatiti s, unspecifi ed; Note: Date Diagnosed : 05/21/2023 2:30 PM (L21.9) Not Available [facility] 02:19:29 Temporoma ndibular joint disorder 43687360 Active 2023 Other specified disorders of temporoma ndibular joint; Note: Date Diagnosed : 05/21/2023 4:31 PM (M26.69) Not Available [facility] 4 02:19:41 Sensorine ural hearing loss of bilateral ears 782245064 Active 2023 Sensorine ural hearing loss, bilateral ; Note: Date Diagnosed : 05/21/2023 2:00 PM (H90.3) Not Available [facility] 4 02:19:41 Problem Notes None recorded. Procedures Surgical History Date Name Laterality Status Provider Name and Address Organization Details Recorded Time 06/01/2024 Comp Audio with Tymps - 88990 & 51778 completed ROCÍO FRANCISCO, [address],[place] [address], [place], [address], [facility] 06/01/2024 08:49:50 Imaging Results None recorded. [...] Updated DateTime 06/01/2024 172.72 cm 32.7 kg/m2 80458.36 g [facility] 06/01/2024 09:04:46 Date Recorded Body height Body mass index (BMI) Body weight Provider Name and Address Organization Details Last Updated DateTime 09/30/2023 172.72 cm 32.7 kg/m2 73863.36 g [facility] 09/30/2023 09:30:59 Social History None recorded. Functional Status None recorded. Mental Status None recorded. Family History Nothing Reported. Medical History No medical history recorded. Gynecological HistoryNo gynecological history recorded. Obstetrics History GPAL:G 0 P 0 0 0 0 Past Encounters Encounter ID Performer Location Encounter Start Date Encounter Closed Date Diagnosis/Indication Diagnosis SNOMED-CT Code Diagnosis ICD10 Code Diagnosis IMO Codes Diagnosis Note [id number] PATTI KING PA-C [facility] [address] [address] 09/30/2023 09:19:22 09/30/2023 09:52:56 Sensorineural hearing loss of bilateral ears 896802459 H90.3 Bilateral tinnitus 07399 09896 102 H93.13 [id number] PATTI KING PA-C [facility] [address] [address] 06/01/2024 08:39:59 06/01/2024 11:22:43 Sensorineural hearing loss of bilateral ears 297023156 H90.3 Bilateral tinnitus 41789 09050 102 H93.13 [id number] NADIYA ZAMORA [facility] [address] [address] 06/01/2024 08:49:24 06/01/2024 09:30:53 Sensorineural hearing loss of bilateral ears 430056648 H90.3 Audiologic al evaluation results:Ri ght ear:Normal [...] ID Guarantor Name 06/01/2024 1 MEDICARE B-[place]: [employer] Girish Hale [id number] Girish Hale 06/01/2024 2 MEDICA[place]: [facility] Girish Hale [id number] Girish Hale Notes Date Note Type Note [...] bilaterally that is intermittent. JOE KLINE MD [address] [place] [address], [phone], [facility] - [facility] 09/30/2023 18:00:16 06/01/2024 text/html Audiological Evaluation HPIReported by Patient ROCÍO FRANCISCONADIYA [address] [facility],[place] [address], [place], [address], [facility] - [facility] 06/01/2024 09:07:53 06/01/2024 text/html ROS as noted in the HPI 68-year-old male presents for follow up of asymmetric hearing loss. MRI brain/IAC 07/14/2023 was negative for retrocochlear pathology. Tinnitus is improved. Denies otalgia, otorrhea, or changes in his hearing. He is considering hearing aids. History of occupational noise exposure. DOMONIQUE ARMSTRONG MD [address] [facility], [place], [address], [facility] 06/01/2024 12:14:40 OBGyn Episode No OBEpisode recorded.
== END 2024-12-20 14:13 | disposition home or self-care (01) ==
LOC: HO.US 14:12
DX: N50.812 Left testicular pain (principal)
CPT/HCPCS: 76870

== ENCOUNTER → 2024-12-20 14:14 | Outpatient (BNV) | payer MEDICARE, MEDICAID, SELFPAY | PROVIDERS: Visit Provider Radiology Diagnostic Radiology | DX: I86.1 Scrotal varices (principal); N50.3 Cyst of epididymis | CPT/HCPCS: 76870 ==

== ENCOUNTER 2025-01-11 08:37 | Outpatient (AMB) | payer MEDICARE, MEDICAID, SELFPAY ==
--- NOTE | 2025-01-11 09:08 | A.OFFVIS_ITS ---
Vital Signs 01/11/25 09:09 Height 5 ft 8 in Weight 222 lb 3.615 oz BMI 33.8 BP 120/60 Blood Pressure Location Lt brachial Position Sitting Pulse 90 Pulse Source Pulse Oximeter Intake Visit Reasons: 6 mth f/up s/p echo Intake Note: 6mth f/up echo Theater Usher Required: No Accompanied by: Self / Same As Patient Allergies meloxicam Adverse Reaction (Severe, Verified 12/12/24 21:02) Chest Pain rosuvastatin Adverse Reaction (Severe, Verified 12/12/24 21:02) Muscle cramps meperidine (From Demerol) Adverse Reaction (Verified 12/12/24 21:02) Nausea simvastatin (From Zocor) Adverse Reaction (Verified 12/12/24 21:02) Muscle Pain Medication List - Last Reconciled 01/11/25 by Conor Garcia MD albuterol sulfate 90 mcg/actuation 2 puffs inhalation Q4-6H PRN aspirin (Adult Aspirin Regimen) 81 mg PO DAILY baclofen 10 mg PO ONCE cholecalciferol (vitamin D3) 25 mcg PO DAILY enalapril maleate 20 mg PO DAILY esomeprazole magnesium 20 mg PO DAILY gabapentin 300 mg PO DAILY hydrochlorothiazide 12.5 mg PO DAILY levothyroxine 75 mcg PO DAILY lorazepam 1 mg PO BEDTIME PRN triamcinolone acetonide 0.5% 1 appl topical TID HPI Comments Details: 69-year-old gentleman here for follow-up. He had dyspnea on exertion and exertional chest tightness. He had echocardiography and stress test which did not show any significant abnormality. Given worsening chest tightness he was taken for cardiac catheterization. He was found to have no significant coronary artery disease. His filling pressures at rest were normal on right heart catheterization. He has dyspnea on exertion due to deconditioning and weight gain. He had carotid bruit and underwent carotid ultrasound which showed moderate right-sided carotid stenosis and mild left-sided carotid stenosis. He was on baby aspirin. He has statin intolerance and had tried different statins in the past. We again tried Crestor at 5 mg every other day but he developed significant muscle aches and could not tolerate Crestor. We were able to start him on Zetia but despite using Zetia his LDL cholesterol is 135. Given carotid stenosis is target is less than 70. 09/04/22: He returns for follow-up. He had blood workup in July 2022. Total cholesterol 147, triglyceride 159, LDL 78 and HDL 38. He is currently taking Repatha 140 mg every 2 weeks. Is saying when he uses Repatha the he gets itching at the site. No rash on the body or breathing issues or lip swelling. This is not a true allergic reaction. He continues to get shortness of breath with exertion specially going up hill. He is saying he does not walk and does not do physical exercise in his day-to-day life. He has no chest discomfort. Blood pressure control is good. 01/06/2024: He is here for follow-up. He is saying he is unable to afford PCSK9 because insurance is not covering anymore since event to Medicare part D. He has familial hyperlipidemia and is statin intolerant. He also has carotid stenosis by ultrasound. He is high-risk for future stroke and cardiovascular events and we will look into prior authorization again because this is on a valid option which has brought his LDL cholesterol from I90s to 60s. 07/11/2024: He is here for follow-up. He has been on PCSK9 with LDL cholesterol 65. His LDL level was more than 200 in 2018. Continues to have dyspnea on exertion. He apparently had cardiopulmonary exercise stress test through pulmonology and was told that he needs to exercise. This is in line with what I have told him before that he has deconditioning. He also has been noticing some breathing issues after taking baclofen and gabapentin. I think these symptoms are unrelated although some of his somnolence and tiredness after medications could be related to these medications. 01/11/2025: He is here for follow-up. He is saying that he has stopped using PCSK9 because he had significant skin reactions. His repeat LDL on testing done in November 2024 is 164, total cholestero 251, triglyceride 283 and HDL 31. He had muscle aches and pains before when he took simvastatin. He also tried rosuvastatin but this was daily dosing before. [facility] Medical History Obesity Hypothyroidism Screening for prostate cancer Screening for diabetes mellitus Back pain Elevated cholesterol GERD (gastroesophageal reflux disease) Cook esophagus Hypertension CESPEDES (dyspnea on exertion) Surgical History Hx of cardiac catheterization History of esophagogastroduodenoscopy (EGD) Hx of colonoscopy Family History Father CVD (cardiovascular disease) Diabetes Myocardial infarct Mother Breast cancer Sister Colon cancer Son Substance use disorder Social History Housing: House Are you a primary memory care program resident to a significant other at home: No Do you presently have visiting nurse or other home services: No Alcohol intake: former Patient Tobacco Use Status: Former Tobacco user Tobacco use type: Cigarette Years Smoked: 30 +/- e-Cigarette/Vaping Use: Never Used Second Hand Smoke Exposure: No service: No Current occupational status: retired and disabled Current occupation: left hand Cognitive needs: No Hearing needs: No Vision needs: Yes (glasses) Review of Systems Const Denies chills, Denies fatigue, Denies fever(s), Denies frequent falls, Denies weakness, Denies weight gain and Denies weight loss ENT Denies dizziness Card Denies chest pain, Denies leg edema, Denies lightheadedness, Denies palpitations, Denies dyspnea and Denies dyspnea on exertion Resp Denies cough, Denies dyspnea and Denies dyspnea on exertion GI Denies hematochezia Musc Denies abnormal gait, Denies muscle weakness, Denies numbness, Denies radiating pain into limb and Denies tingling Neuro Denies abnormal gait, Denies dizziness, Denies frequent falls, Denies numbness, Denies tingling and Denies weakness Endo Denies fatigue and Denies palpitations Physical Exam Vital Signs: Last Vital Signs Pulse 90 01/11/25 09:09 BP 120/60 01/11/25 09:09 BMI result Body Mass Index 33.8 GENERAL APPEARANCE: in no acute distress. NECK/THYROID: Left carotid bruit, no jugular venous distention. SKIN: no suspicious lesions, warm and dry. HEART: no murmurs, regular rate and rhythm, S1, S2 normal. LUNGS: clear to auscultation bilaterally. ABDOMEN: normal, bowel sounds present, soft, nontender, nondistended. EXTREMITIES: no clubbing, cyanosis, or edema. PERIPHERAL PULSES: equal. NEUROLOGIC: nonfocal, alert and oriented. PSYCH: mood/affect full range. Assessment & Plan Assessment & Plan (1) Hyperlipidemia: Code(s): E78.5 - Hyperlipidemia, unspecified Category: Medical Qualifiers: Hyperlipidemia type: familial hypercholesterolemia Qualified Code(s): E78.01 - Familial hypercholesterolemia (2) Hypertension: Code(s): I10 - Essential (primary) hypertension Category: Medical Qualifiers: Hypertension type: unspecified Qualified Code(s): I10 - Essential (primary) hypertension (3) CESPEDES (dyspnea on exertion): Code(s): R06.00 - Dyspnea, unspecified Category: Medical Plan 69-year-old gentleman who is here for follow-up. He has background history of hyperlipidemia and was on PCSK9 with good improvement in LDL but unfortunately he was getting skin reactions and he had decided to stopped PCSK9 and is not interested in starting them back. He has statin intolerance before with muscle aches. He has not I have advised him to start Crestor 10 mg once a week and ezetimibe 10 mg daily. He will have repeat testing in 1-2 months. If he tolerates this strategy then we will try Crestor 3 times a week and eventually daily if he tolerates the medication. Dyspnea on exertion due to deconditioning. He follows with pulmonology. Echocardiography recently has shown normal biventricular function. Clinically not in heart failure. Thank you for allowing me to participate in the care of your patient. Please f eel free to contact me if you have any questions. Medications: New ezetimibe 10 mg PO DAILY 90 tabs 3RF E78.01 - Familial hypercholesterolemia rosuvastatin (Crestor) 10 mg PO .Once a week 30 tabs 3RF E78.01 - Familial hypercholesterolemia Coding Level of Care Code Est Pt Level 4 (87442) Diagnoses Familial hypercholesterolemia E78.01 Hyperlipidemia type: familial hypercholesterolemia Hypertension, unspecified type I10 Hypertension type: unspecified CESPEDES (dyspnea on exertion) R06.00
[2025-01-11 09:09] VITALS: BP 120/60; PULSE 90; BMI 33.8
== END 2025-01-11 09:29 | disposition home or self-care (01) ==
LOC: HO.HCS 08:38
PROVIDERS: PCP Internal Medicine; Visit Provider Internal Medicine Cardiovascular Disease
DX: E78.019 Familial hypercholesterolemia, unspecified (principal); I10 Essential (primary) hypertension; R06.00 Dyspnea, unspecified
CPT/HCPCS: 99214

== ENCOUNTER → 2025-01-11 08:37 | Outpatient (BNVA) | payer MEDICARE, MEDICAID, SELFPAY | PROVIDERS: PCP Internal Medicine; Visit Provider Internal Medicine Cardiovascular Disease | DX: R06.00 Dyspnea, unspecified (principal); I10 Essential (primary) hypertension; E78.019 Familial hypercholesterolemia, unspecified | CPT/HCPCS: 99212 ==